=== PATIENT | female | born 1950 | race Caucasian/White ===

== ENCOUNTER 2021-09-08 17:54 | Emergency (ER) | payer MEDICARE, OTHER, SELFPAY ==
--- NOTE | ~2021-09-08 | CT_ITS ---
EXAMINATION: CT HEAD WITHOUT CONTRAST CT CERVICAL SPINE WITHOUT CONTRAST CLINICAL INFORMATION: Status post fall with alcohol on board. Possible right facial droop. COMPARISON: Concurrent chest x-ray 09/08/2021. TECHNIQUE: Multidetector CT imaging of the head and cervical spine was performed without the use of intravenous contrast. Coronal and sagittal reformatted images were generated at the technologist workstation. This CT examination was performed using dose optimization techniques as appropriate, variously including the following: *Automated exposure control *Adjustment of mA and/or kV according to patient size (this includes techniques or standardized protocols for targeted exams where dose is matched to indication/reason for exam; i.e. extremities or head) *Use of iterative reconstruction technique DLP: 1037 mGy-cm. FINDINGS: CT head: Images are moderately degraded by patient motion artifact. There is no evidence of acute intracranial hemorrhage or territorial infarction. No abnormal mass-effect or midline shift is seen. De León to white matter differentiation is well preserved. No extra-axial fluid collections are identified. There is mild commensurate prominence of the ventricles and sulci. There is prominence of the sulci in the bilateral cerebellar hemispheres. This may be a small lacunar infarct in the right basal ganglia. There are areas of low-attenuation in the periventricular subcortical white matter. There are no acute osseous findings. There is severe degenerative changes of the right temporomandibular joint. There are no large scalp contusions or hematomas. The mastoid air cells and the visualized paranasal sinuses are well-aerated. CT cervical spine: There is overall straightening of the cervical lordosis. There are degenerative anterolistheses of C4 on C5 and C7 on T1. There are mild retrolistheses of C5 on C6 and C6 and C7. There is multilevel narrowing of intervertebral disc height which is most severe at C2-C3, C5-C6 and C6-C7. There are multilevel facet arthropathic changes. No fractures are demonstrated. The lateral masses of C1 and C2 are normally aligned and the dens is intact. The cervicomedullary junction appears normal. There are moderate emphysematous changes in the upper lung pool bilaterally and there are nonspecific groundglass opacities. No pneumothoraces are demonstrated. The study demonstrates plate and screws along the right humerus. CT/CT cervical spine wo con IMPRESSION: 1. Imaging is slightly degraded by patient motion artifact on the CT scan of the head. There are no acute bleeds or territorial infarcts. No masses are demonstrated. 2. There are chronic microvascular ischemic changes and there is diffuse volume loss. 3. There are no acute fractures or subluxations in the cervical spine. There are severe multilevel spondylitic and facet arthropathic changes.
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
[2021-09-08 18:05] VITALS: BP 140/92; PULSE 86; O2SAT 100
--- NOTE | 2021-09-08 18:22 | ECG_ITS ---
Test Reason : FALL Blood Pressure : / mmHG Vent. Rate : 060 BPM Atrial Rate : 060 BPM P-R Int : 144 ms QRS Dur : 086 ms QT Int : 474 ms P-R-T Axes : 069 -03 027 degrees QTc Int : 474 ms Normal sinus rhythm Low voltage QRS Borderline ECG No previous ECGs available Referred By: Lila Marie Electronically Signed By:JOSE ANGEL BALTAZAR MD
[2021-09-08 18:34] VITALS: BP 149/70; PULSE 64; RESP 20; TEMP 36.5; O2SAT 99; BMI 26.9
--- NOTE | 2021-09-08 18:51 | ED.FALL ---
HPI - Fall General Chief Complaint: Fall <ISRRAEL Palacio Last Filed: 09/09/21 02:13> Stated Complaint: WITNESSED TRIP&FALL W/ELBOW&HAND SCRAPES,ETOH <ISRRAEL Palacio - Last Filed: 09/09/21 02:13> Time Seen by Provider: 09/08/21 18:22 <ISRRAEL Palacio Last Filed: 09/09/21 02:13> Source: EMS <ISRRAEL Palacio Last Filed: 09/09/21 02:13> Mode of arrival: EMS <ISRRAEL Palacio Last Filed: 09/09/21 02:13> Limitations: other (Poor historian intoxicated) <ISRRAEL Palacio Last Filed: 09/09/21 02:13> History of Present Illness HPI Narrative: 71-year-old female who is from [place] we do not have any medical history from her although looking through her wallet it appears that she might have ETOH abuse due to she has multiple detox centers and 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 The bystander denied loss of consciousness to EMS. Her license says [place]. She can barely speak at this time although she is moving all extremities with full range of motion no obvious signs of trauma. We also assisted her on the bedpan due to she kept screaming ?I need to pee?. <ISRRAEL Plaacio - Last Filed: 09/09/21 02:13> MD complaint: fall <ISRRAEL Palacio - Last Filed: 09/09/21 02:13> Onset (ago): minute(s) (Prior to arrival) <ISRRAEL Palacio Last Filed: 09/09/21 02:13> Fall from: standing <ISRRAEL Palacio Last Filed: 09/09/21 02:13> Fall witnessed: yes, by bystander <ISRRAEL Palacio Last Filed: 09/09/21 02:13> Place fall occurred: street <ISRRAEL Palacio Last Filed: 09/09/21 02:13> Loss of consciousness: unsure <ISRRAEL Palacio - Last Filed: 09/09/21 02:13> Prolonged down time: unclear <ISRRAEL Palacio - Last Filed: 09/09/21 02:13> Related Data Allergies/Adverse Reactions: Allergies Allergy/AdvReac Type Severity Reaction Status Date / Time No Known Allergies Allergy Verified 09/08/21 18:22 <ISRRAEL Palacio - Last Filed: 09/09/21 02:13> Review of Systems Review of Systems: Yes Unobtainable due to mental condition (Poor historian/intoxicated) <ISRRAEL Palacio - Last Filed: 09/09/21 02:13> [facility] Past Medical History Medical History: Medical History ETOH abuse <ISRRAEL Palacio - Last Filed: 09/09/21 02:13> Social History Social History: Social History Alcohol intake: current Use of substances other than those prescribed or required for medical reasons: No <ISRRAEL Palacio - Last Filed: 09/09/21 02:13> Physical Exam Vital Signs: Vital Signs: Last Vital Signs Temp 97.8 F 09/09/21 05:59 Pulse 67 09/09/21 06:59 Resp 16 09/09/21 06:59 BP 125/70 09/09/21 06:59 Pulse Ox 100 09/09/21 06:59 BMI result Body Mass Index 26.9 Vital signs have been reviewed as normal and appeared to be correct. Blood pressure 149/70. Heart rate normal. Respiration rate normal. Temperature normal. Oxygen saturation normal. <ISRRAEL Palacio - Last Filed: 09/09/21 02:13> Vital Signs: Last Vital Signs Temp 97.8 F 09/09/21 05:59 Pulse 67 09/09/21 06:59 Resp 16 09/09/21 06:59 BP 125/70 09/09/21 06:59 Pulse Ox 100 09/09/21 06:59 BMI result Body Mass Index 26.9 <Leonel Pitts MD - Last Filed: 09/09/21 07:32> Appearance: Awake although intoxicated with slurred speech. No acute distress. Head: Normal external exam. Normocephalic. Atraumatic. Able to rotate head bilaterally. No Mo signs or raccoon eyes noted. Eyes: PERRLA. EOMI. No nystagmus noted. Conjunctiva and sclera normal. Eyelids normal. Corneal reflex normal. ENT: EAC normal. TM's Normal. No septal hematoma noted. No hemotympanum noted. No lesions/ulcerations or masses noted on the tongue. Hearing normal. Pharynx normal. Uvula midline. tongue midline. Moist mucous membranes. No trismus noted. No drooling noted. No muffled voice noted. No nystagmus noted. Slurred speech. Neck: Normal inspection. Neck supple. FROM. No adenopathy. Trachea midline. Thyroid Normal. No meningeal signs. No neck mass noted. CVS: Normal heart rate and rhythm. Heart sound normal. No murmurs noted. Pulses normal throughout. Respiratory: No respiratory distress. Painless inspiration. Breath sounds normal. No wheezes/rales/rhonchi noted. Chest nontender. No accessory muscle usage noted or decreased air movement noted. No signs or trauma noted. No crepitus is noted. Abdomen: Soft and nontender. Bowel sounds normal in all 4 quadrants. No distention noted. No organomegaly noted. No visible injury noted. Back: No CVA tenderness. Full range of motion noted. Nontender. No signs of trauma. Patient neuro intact bilaterally and distally on all 4 extremities. Patient's reflexes intact bilaterally and distally on all 4 extremities. No rashes/lesion/induration/fluctuance or signs of infection noted. Skin: Skin warm and dry. Normal skin color. Normal skin turgor. No rashes/lesions/lacerations noted. Extremities: No lower extremity edema. No calf tenderness noted. Extremities exhibit normal range of motion. Extremities nontender. Able to shrug shoulders bilaterally and keep up against resistance. Neuro: Patient is awake although she appears intoxicated with slurred speech she reports that she does not know where she is at this time although she is able to recall that we are in year 2021. Otherwise she does not have any focal deficits. No motor deficit. No sensory deficit. Reflexes normal. Moving all extremities. Cranial nerves II-XI intact bilaterally. To the right side of the face I am questioning possible right facial droop although when the patient smiles this resolves. Strength 5/5 throughout. No pronator drift. No tremor noted. No fasciculations noted. No rigidity noted. Muscle tone normal throughout. No asterixis noted. [id number] test normal. Heel to archibald test normal. Did not test gait due to patient is very intoxicated. Hand drop from overhead Misses face. NIHSS score 0. Vascular: + radial pulses/+ 2 distal pedal pulses/+2 dorsalis pedis b/l. Normal cap refill. No cyanosis noted to upper extremity nails and lower extremity toes nails. 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 The bystander denied loss of consciousness to EMS. Her license says [place]. She can barely speak at this time although she is moving all extremities with full range of motion no obvious signs of trauma. We also assisted her on the bedpan due to she kept screaming ?I need to pee?. On exam there are no obvious signs of trauma she is awake although very intoxicated with slurred speech questioning right facial droop although when the patient smiles this resolves. Otherwise she is moving all extremities. No focal motor old deficits noted. She has good gem carver to bilateral hands. No pronator drift. No nystagmus is noted. Neck is soft nontender and supple with full range of motion no meningeal signs and no signs of trauma. Lungs clear to auscultation. CV RRR. Abdomen is soft and nontender no signs of trauma. Back is nontender with full range of motion no signs of trauma. No lower extremity edema or calf tenderness noted. Gait was not tested due to patient is severely intoxicated. Plan: Labs, COVID swab, chest x-ray, CT scan of brain/cervical spine, EKG. Provide a L of IV fluids and re-evaluate. <ISRRAEL Palacio - Last Filed: 09/09/21 02:13> Reevaluation(s) Reevaluation #1: - labs reviewed patient's H&H at 16.5/51.8 consistent with alcohol abuse. Magnesium 2.7. Alcohol level 365. Otherwise all other labs are within normal limits. UA within normal limits no evidence of UTI. Patient negative for COVID. Drugs of abuse screen pending. - chest x-ray revealed bibasilar atelectasis on the left side otherwise no other acute processes noted. - CT scan of brain/cervical spine pending at this time. <ISRRAEL Palacio - Last Filed: 09/09/21 02:13> Time: 20:00 <ISRRAEL Palacio - Last Filed: 09/09/21 02:13> Reevaluation #2: - CT scan of brain and cervical spine without contrast revealed chronic changes no acute processes noted. - therefore patient is placed in Physician observation because the patient is more time to be clinically sober to be evaluated by crisis versus possible detox team will continue to monitor. At this time she remains neuro intact. She was able to get up and walk around the room although I instructed her today back down due to I do not believe she is clinically sober and her alcohol level is still high I do not want her to fall again. She was able to lay back down and she is now resting. Will continue to monitor. <ISRRAEL Palacio - Last Filed: 09/09/21 02:13> Time: 21:21 <ISRRAEL Palacio - Last Filed: 09/09/21 02:13> Reevaluation #3: - patient got out of her bed and pulled out her IV reporting that she is homeless and has nowhere to go and that she needs help therefore at this time she will need some Ativan to calm her down and she will be seen by crisis when she is clinically sober in the morning. No focal neuro deficits. Normal gait. Continue to monitor. <ISRRAEL Palacio - Last Filed: 09/09/21 02:13> Time: 00:20 <ISRRAEL Palacio - Last Filed: 09/09/21 02:13> Additional Reevaluation(s): 0730: The patient is awake and sober, she does not want to wait in the emergency department anymore for a catalyst recovery operator were care team consult. The patient states that she was just recently in a detox program. She states that she is homeless but she does have a place to go to today. The patient was discharged home with printed and verbal instructions. <Leonel Pitts MD - Last Filed: 09/09/21 07:32> MDM - Fall Medical Records Attestation: I reviewed the patient's medical records. <ISRRAEL Palacio - Last Filed: 09/09/21 02:13> Lab Data Attestation: I reviewed the patient's lab results. <ISRRAEL Palacio - Last Filed: 09/09/21 02:13> Result diagrams: : 09/08/21 19:13 09/08/21 19:13 <ISRRAEL Palacio - Last Filed: 09/09/21 02:13> Labs: Lab Results 09/08/21 09/08/21 09/08/21 Range/Units 19:13 19:13 19:13 WBC 8.3 (4.8-10.8) X10*3/uL RBC 5.50 (4.20-5.50) X10*6/uL Hgb 16.5 H (12.0-16.0) g/dl Hct 51.8 H (37.0-47.0) % MCV 94.2 (80.0-98.0) fL MCH 30.0 (27.0-33.0) pg MCHC 31.9 (31.0-35.0) g/dl RDW 12.4 (11.0-16.0) % Plt Count 316 (160-400) X10*3/uL MPV 9.3 L (9.4-12.3) fL Immature Gran % (Auto) 0.1 (0.0-0.4) % Neut % (Auto) 65.0 (45-73) % Lymph % (Auto) 26.2 (20-40) % [place] % (Auto) 4.3 (2-11) % Eos % (Auto) 3.6 (0-4) % Baso % (Auto) 0.8 (0-2) % Lymph # (Auto) 2.2 (1.2-4.9) X10*3/uL [place] # (Auto) 0.4 (0.1-1.2) X10*3/uL Eos # (Auto) 0.3 (0.0-0.4) X10*3/uL Baso # (Auto) 0.1 (0.0-0.2) X10*3/uL Abs Immat Gran (auto) 0.01 (0.00-0.03) X10*3/uL Absolute Neuts (auto) 5.4 (2.0-8.3) x10*3/uL Absolute Nucleated RBC 0.000 (0.0-0.012) X10*3/uL Nucleated RBC % (auto) 0.0 (0.0-0.2) /100WBC PT 11.1 (9.9-13.0) SEC INR 1.0 (0.9-1.1) APTT 34.8 (24.1-38.0) SEC Sodium 142 (135-145) mmol/L Potassium 4.0 (3.3-5.1) mmol/L Chloride 105 (96-108) mmol/L Carbon Dioxide 29 (22-29) mmol/L Anion Gap 12 (12-20) BUN 13 (9-16) mg/dL Creatinine 0.93 (0.5-1.4) mg/dL Estim Creat Clear Calc 52.8 Estimated GFR 59 Random Glucose 91 (60-115) mg/dL Calcium 10.2 (8.4-10.2) mg/dL Magnesium 2.7 H (1.6-2.6) mg/dL Total Bilirubin 0.2 (0.0-1.0) mg/dL AST 25 (5-31) U/L ALT 30 (0-31) U/L Alkaline Phosphatase 73 (39-117) U/L Troponin I High Sens (<3.5-17.0) ng/L Total Protein 7.8 (6.5-8.0) g/dL Albumin 4.7 (3.5-5.0) g/dL Urine Color Urine Appearance Urine pH (5.0-8.0) Ur Specific Bush (1.005-1.025) Urine Protein (NEG-TRACE) MG/DL Urine Glucose (UA) (NEG) MG/DL Urine Ketones (NEG) MG/DL Urine Blood (NEG) Urine Nitrite (NEG) Ur Leukocyte Esterase (NEG) Urine Opiates Screen (Not Detect) Urine Fentanyl Screen (Not Detect) Ur Barbiturates Screen (Not Detect) Ur Phencyclidine Scrn (Not Detect) Ur Amphetamines Screen (Not Detect) U Benzodiazepines Scrn (Not Detect) Urine Cocaine Screen (Not Detect) U Marijuana (THC) Screen (Not Detect) Ethyl Alcohol mg/dL COVID-19 (PRANAY) (Negative) COVID-19 Clin Com 09/08/21 09/08/21 09/08/21 Range/Units 19:13 19:13 19:13 WBC (4.8-10.8) X10*3/uL RBC (4.20-5.50) X10*6/uL Hgb (12.0-16.0) g/dl Hct (37.0-47.0) % MCV (80.0-98.0) fL MCH (27.0-33.0) pg MCHC (31.0-35.0) g/dl RDW (11.0-16.0) % Plt Count (160-400) X10*3/uL MPV (9.4-12.3) fL Immature Gran % (Auto) (0.0-0.4) % Neut % (Auto) (45-73) % Lymph % (Auto) (20-40) % [place] % (Auto) (2-11) % Eos % (Auto) (0-4) % Baso % (Auto) (0-2) % Lymph # (Auto) (1.2-4.9) X10*3/uL [place] # (Auto) (0.1-1.2) X10*3/uL Eos # (Auto) (0.0-0.4) X10*3/uL Baso # (Auto) (0.0-0.2) X10*3/uL Abs Immat Gran (auto) (0.00-0.03) X10*3/uL Absolute Neuts (auto) (2.0-8.3) x10*3/uL Absolute Nucleated RBC (0.0-0.012) X10*3/uL Nucleated RBC % (auto) (0.0-0.2) /100WBC PT (9.9-13.0) SEC INR (0.9-1.1) APTT (24.1-38.0) SEC Sodium (135-145) mmol/L Potassium (3.3-5.1) mmol/L Chloride (96-108) mmol/L Carbon Dioxide (22-29) mmol/L Anion Gap (12-20) BUN (9-16) mg/dL Creatinine (0.5-1.4) mg/dL Estim Creat Clear Calc Estimated GFR Random Glucose (60-115) mg/dL Calcium (8.4-10.2) mg/dL Magnesium (1.6-2.6) mg/dL Total Bilirubin (0.0-1.0) mg/dL AST (5-31) U/L ALT (0-31) U/L Alkaline Phosphatase (39-117) U/L Troponin I High Sens < 3.5 (<3.5-17.0) ng/L Total Protein (6.5-8.0) g/dL Albumin (3.5-5.0) g/dL Urine Color Urine Appearance Urine pH (5.0-8.0) Ur Specific [place] (1.005-1.025) Urine Protein (NEG-TRACE) MG/DL Urine Glucose (UA) (NEG) MG/DL Urine Ketones (NEG) MG/DL Urine Blood (NEG) Urine Nitrite (NEG) Ur Leukocyte Esterase (NEG) Urine Opiates Screen (Not Detect) Urine Fentanyl Screen (Not Detect) Ur Barbiturates Screen (Not Detect) Ur Phencyclidine Scrn (Not Detect) Ur Amphetamines Screen (Not Detect) U Benzodiazepines Scrn (Not Detect) Urine Cocaine Screen (Not Detect) U Marijuana (THC) Screen (Not Detect) Ethyl Alcohol 365 H* mg/dL COVID-19 (PRANAY) Negative (Negative) COVID-19 Clin Com See Note 09/08/21 09/08/21 Range/Units 19:15 19:15 WBC (4.8-10.8) X10*3/uL RBC (4.20-5.50) X10*6/uL Hgb (12.0-16.0) g/dl Hct (37.0-47.0) % MCV (80.0-98.0) fL MCH (27.0-33.0) pg MCHC (31.0-35.0) g/dl RDW (11.0-16.0) % Plt Count (160-400) X10*3/uL MPV (9.4-12.3) fL Immature Gran % (Auto) (0.0-0.4) % Neut % (Auto) (45-73) % Lymph % (Auto) (20-40) % [place] % (Auto) (2-11) % Eos % (Auto) (0-4) % Baso % (Auto) (0-2) % Lymph # (Auto) (1.2-4.9) X10*3/uL [place] # (Auto) (0.1-1.2) X10*3/uL Eos # (Auto) (0.0-0.4) X10*3/uL Baso # (Auto) (0.0-0.2) X10*3/uL Abs Immat Gran (auto) (0.00-0.03) X10*3/uL Absolute Neuts (auto) (2.0-8.3) x10*3/uL Absolute Nucleated RBC (0.0-0.012) X10*3/uL Nucleated RBC % (auto) (0.0-0.2) /100WBC PT (9.9-13.0) SEC INR (0.9-1.1) APTT (24.1-38.0) SEC Sodium (135-145) mmol/L Potassium (3.3-5.1) mmol/L Chloride (96-108) mmol/L Carbon Dioxide (22-29) mmol/L Anion Gap (12-20) BUN (9-16) mg/dL Creatinine (0.5-1.4) mg/dL Estim Creat Clear Calc Estimated GFR Random Glucose (60-115) mg/dL Calcium (8.4-10.2) mg/dL Magnesium (1.6-2.6) mg/dL Total Bilirubin (0.0-1.0) mg/dL AST (5-31) U/L ALT (0-31) U/L Alkaline Phosphatase (39-117) U/L Troponin I High Sens (<3.5-17.0) ng/L Total Protein (6.5-8.0) g/dL Albumin (3.5-5.0) g/dL Urine Color STRAW Urine Appearance CLEAR Urine pH 5.5 (5.0-8.0) Ur Specific Bush <= 1.005 (1.005-1.025) Urine Protein NEG (NEG-TRACE) MG/DL Urine Glucose (UA) NEG (NEG) MG/DL Urine Ketones NEG (NEG) MG/DL Urine Blood NEG (NEG) Urine Nitrite NEG (NEG) Ur Leukocyte Esterase NEG (NEG) Urine Opiates Screen Not Detected (Not Detect) Urine Fentanyl Screen Not Detected (Not Detect) Ur Barbiturates Screen Not Detected (Not Detect) Ur Phencyclidine Scrn Not Detected (Not Detect) Ur Amphetamines Screen Not Detected (Not Detect) U Benzodiazepines Scrn Not Detected (Not Detect) Urine Cocaine Screen Not Detected (Not Detect) U Marijuana (THC) Screen Not Detected (Not Detect) Ethyl Alcohol mg/dL COVID-19 (PRANAY) (Negative) COVID-19 Clin Com <ISRRAEL Palacio - Last Filed: 09/09/21 02:13> Lab Results 09/08/21 09/08/21 09/08/21 Range/Units 19:13 19:13 19:13 WBC 8.3 (4.8-10.8) X10*3/uL RBC 5.50 (4.20-5.50) X10*6/uL Hgb 16.5 H (12.0-16.0) g/dl Hct 51.8 H (37.0-47.0) % MCV 94.2 (80.0-98.0) fL MCH 30.0 (27.0-33.0) pg MCHC 31.9 (31.0-35.0) g/dl RDW 12.4 (11.0-16.0) % Plt Count 316 (160-400) X10*3/uL MPV 9.3 L (9.4-12.3) fL Immature Gran % (Auto) 0.1 (0.0-0.4) % Neut % (Auto) 65.0 (45-73) % Lymph % (Auto) 26.2 (20-40) % [place] % (Auto) 4.3 (2-11) % Eos % (Auto) 3.6 (0-4) % Baso % (Auto) 0.8 (0-2) % Lymph # (Auto) 2.2 (1.2-4.9) X10*3/uL [place] # (Auto) 0.4 (0.1-1.2) X10*3/uL Eos # (Auto) 0.3 (0.0-0.4) X10*3/uL Baso # (Auto) 0.1 (0.0-0.2) X10*3/uL Abs Immat Gran (auto) 0.01 (0.00-0.03) X10*3/uL Absolute Neuts (auto) 5.4 (2.0-8.3) x10*3/uL Absolute Nucleated RBC 0.000 (0.0-0.012) X10*3/uL Nucleated RBC % (auto) 0.0 (0.0-0.2) /100WBC PT 11.1 (9.9-13.0) SEC INR 1.0 (0.9-1.1) APTT 34.8 (24.1-38.0) SEC Sodium 142 (135-145) mmol/L Potassium 4.0 (3.3-5.1) mmol/L Chloride 105 (96-108) mmol/L Carbon Dioxide 29 (22-29) mmol/L Anion Gap 12 (12-20) BUN 13 (9-16) mg/dL Creatinine 0.93 (0.5-1.4) mg/dL Estim Creat Clear Calc 52.8 Estimated GFR 59 Random Glucose 91 (60-115) mg/dL Calcium 10.2 (8.4-10.2) mg/dL Magnesium 2.7 H (1.6-2.6) mg/dL Total Bilirubin 0.2 (0.0-1.0) mg/dL AST 25 (5-31) U/L ALT 30 (0-31) U/L Alkaline Phosphatase 73 (39-117) U/L Troponin I High Sens (<3.5-17.0) ng/L Total Protein 7.8 (6.5-8.0) g/dL Albumin 4.7 (3.5-5.0) g/dL Urine Color Urine Appearance Urine pH (5.0-8.0) Ur Specific [place] (1.005-1.025) Urine Protein (NEG-TRACE) MG/DL Urine Glucose (UA) (NEG) MG/DL Urine Ketones (NEG) MG/DL Urine Blood (NEG) Urine Nitrite (NEG) Ur Leukocyte Esterase (NEG) Urine Opiates Screen (Not Detect) Urine Fentanyl Screen (Not Detect) Ur Barbiturates Screen (Not Detect) Ur Phencyclidine Scrn (Not Detect) Ur Amphetamines Screen (Not Detect) U Benzodiazepines Scrn (Not Detect) Urine Cocaine Screen (Not Detect) U Marijuana (THC) Screen (Not Detect) Ethyl Alcohol mg/dL COVID-19 (PRANAY) (Negative) COVID-19 Clin Com 09/08/21 09/08/21 09/08/21 Range/Units 19:13 19:13 19:13 WBC (4.8-10.8) X10*3/uL RBC (4.20-5.50) X10*6/uL Hgb (12.0-16.0) g/dl Hct (37.0-47.0) % MCV (80.0-98.0) fL MCH (27.0-33.0) pg MCHC (31.0-35.0) g/dl RDW (11.0-16.0) % Plt Count (160-400) X10*3/uL MPV (9.4-12.3) fL Immature Gran % (Auto) (0.0-0.4) % Neut % (Auto) (45-73) % Lymph % (Auto) (20-40) % [place] % (Auto) (2-11) % Eos % (Auto) (0-4) % Baso % (Auto) (0-2) % Lymph # (Auto) (1.2-4.9) X10*3/uL [place] # (Auto) (0.1-1.2) X10*3/uL Eos # (Auto) (0.0-0.4) X10*3/uL Baso # (Auto) (0.0-0.2) X10*3/uL Abs Immat Gran (auto) (0.00-0.03) X10*3/uL Absolute Neuts (auto) (2.0-8.3) x10*3/uL Absolute Nucleated RBC (0.0-0.012) X10*3/uL Nucleated RBC % (auto) (0.0-0.2) /100WBC PT (9.9-13.0) SEC INR (0.9-1.1) APTT (24.1-38.0) SEC Sodium (135-145) mmol/L Potassium (3.3-5.1) mmol/L Chloride (96-108) mmol/L Carbon Dioxide (22-29) mmol/L Anion Gap (12-20) BUN (9-16) mg/dL Creatinine (0.5-1.4) mg/dL Estim Creat Clear Calc Estimated GFR Random Glucose (60-115) mg/dL Calcium (8.4-10.2) mg/dL Magnesium (1.6-2.6) mg/dL Total Bilirubin (0.0-1.0) mg/dL AST (5-31) U/L ALT (0-31) U/L Alkaline Phosphatase (39-117) U/L Troponin I High Sens < 3.5 (<3.5-17.0) ng/L Total Protein (6.5-8.0) g/dL Albumin (3.5-5.0) g/dL Urine Color Urine Appearance Urine pH (5.0-8.0) Ur Specific [place] (1.005-1.025) Urine Protein (NEG-TRACE) MG/DL Urine Glucose (UA) (NEG) MG/DL Urine Ketones (NEG) MG/DL Urine Blood (NEG) Urine Nitrite (NEG) Ur Leukocyte Esterase (NEG) Urine Opiates Screen (Not Detect) Urine Fentanyl Screen (Not Detect) Ur Barbiturates Screen (Not Detect) Ur Phencyclidine Scrn (Not Detect) Ur Amphetamines Screen (Not Detect) U Benzodiazepines Scrn (Not Detect) Urine Cocaine Screen (Not Detect) U Marijuana (THC) Screen (Not Detect) Ethyl Alcohol 365 H* mg/dL COVID-19 (PRANAY) Negative (Negative) COVID-19 Clin Com See Note 09/08/21 09/08/21 Range/Units 19:15 19:15 WBC (4.8-10.8) X10*3/uL RBC (4.20-5.50) X10*6/uL Hgb (12.0-16.0) g/dl Hct (37.0-47.0) % MCV (80.0-98.0) fL MCH (27.0-33.0) pg MCHC (31.0-35.0) g/dl RDW (11.0-16.0) % Plt Count (160-400) X10*3/uL MPV (9.4-12.3) fL Immature Gran % (Auto) (0.0-0.4) % Neut % (Auto) (45-73) % Lymph % (Auto) (20-40) % [place] % (Auto) (2-11) % Eos % (Auto) (0-4) % Baso % (Auto) (0-2) % Lymph # (Auto) (1.2-4.9) X10*3/uL [place] # (Auto) (0.1-1.2) X10*3/uL Eos # (Auto) (0.0-0.4) X10*3/uL Baso # (Auto) (0.0-0.2) X10*3/uL Abs Immat Gran (auto) (0.00-0.03) X10*3/uL Absolute Neuts (auto) (2.0-8.3) x10*3/uL Absolute Nucleated RBC (0.0-0.012) X10*3/uL Nucleated RBC % (auto) (0.0-0.2) /100WBC PT (9.9-13.0) SEC INR (0.9-1.1) APTT (24.1-38.0) SEC Sodium (135-145) mmol/L Potassium (3.3-5.1) mmol/L Chloride (96-108) mmol/L Carbon Dioxide (22-29) mmol/L Anion Gap (12-20) BUN (9-16) mg/dL Creatinine (0.5-1.4) mg/dL Estim Creat Clear Calc Estimated GFR Random Glucose (60-115) mg/dL Calcium (8.4-10.2) mg/dL Magnesium (1.6-2.6) mg/dL Total Bilirubin (0.0-1.0) mg/dL AST (5-31) U/L ALT (0-31) U/L Alkaline Phosphatase (39-117) U/L Troponin I High Sens (<3.5-17.0) ng/L Total Protein (6.5-8.0) g/dL Albumin (3.5-5.0) g/dL Urine Color STRAW Urine Appearance CLEAR Urine pH 5.5 (5.0-8.0) Ur Specific [place] <= 1.005 (1.005-1.025) Urine Protein NEG (NEG-TRACE) MG/DL Urine Glucose (UA) NEG (NEG) MG/DL Urine Ketones NEG (NEG) MG/DL Urine Blood NEG (NEG) Urine Nitrite NEG (NEG) Ur Leukocyte Esterase NEG (NEG) Urine Opiates Screen Not Detected (Not Detect) Urine Fentanyl Screen Not Detected (Not Detect) Ur Barbiturates Screen Not Detected (Not Detect) Ur Phencyclidine Scrn Not Detected (Not Detect) Ur Amphetamines Screen Not Detected (Not Detect) U Benzodiazepines Scrn Not Detected (Not Detect) Urine Cocaine Screen Not Detected (Not Detect) U Marijuana (THC) Screen Not Detected (Not Detect) Ethyl Alcohol mg/dL COVID-19 (PRANAY) (Negative) COVID-19 Clin Com <Leonel Pitts MD - Last Filed: 09/09/21 07:32> Imaging Data Chest x-ray: Attestation: I personally reviewed and interpreted this imaging study as follows: <ISRRAEL Palacio - Last Filed: 09/09/21 02:13> Radiologist's impression: FINDINGS: Heart size within normal limits. There is mild elevation of the right hemidiaphragm. Left basilar atelectasis is present. Plate and screw device is present overlying the proximal right humerus secondary to fracture. XR/XR chest 1V IMPRESSION: No acute intrathoracic disease. Some left basilar atelectasis. <ISRRAEL Palacio - Last Filed: 09/09/21 02:13> CT scan of brain/cervical spine without contrast: Attestation: I personally reviewed and interpreted this imaging study as follows: <ISRRAEL Palacio - Last Filed: 09/09/21 02:13> Radiologist's impression: FINDINGS: CT head: Images are moderately degraded by patient motion artifact. There is no evidence of acute intracranial hemorrhage or territorial infarction. No abnormal mass-effect or midline shift is seen. [place] to white matter differentiation is well preserved. No extra-axial fluid collections are identified. There is mild commensurate prominence of the ventricles and sulci. There is prominence of the sulci in the bilateral cerebellar hemispheres. This may be a small lacunar infarct in the right basal ganglia. There are areas of low-attenuation in the periventricular subcortical white matter. There are no acute osseous findings. There is severe degenerative changes of the right temporomandibular joint. There are no large scalp contusions or hematomas. The mastoid air cells and the visualized paranasal sinuses are well-aerated. CT cervical spine: There is overall straightening of the cervical lordosis. There are degenerative anterolistheses of C4 on C5 and C7 on T1. There are mild retrolistheses of C5 on C6 and C6 and C7. There is multilevel narrowing of intervertebral disc height which is most severe at C2-C3, C5-C6 and C6-C7. There are multilevel facet arthropathic changes. No fractures are demonstrated. The lateral masses of C1 and C2 are normally aligned and the dens is intact. The cervicomedullary junction appears normal. There are moderate emphysematous changes in the upper lung pool bilaterally and there are nonspecific groundglass opacities. No pneumothoraces are demonstrated. The study demonstrates plate and screws along the right humerus. ? CT/CT head/brain wo con IMPRESSION: 1. Imaging is slightly degraded by patient motion artifact on the CT scan of the head. There are no acute bleeds or territorial infarcts. No masses are demonstrated. ? 2. There are chronic microvascular ischemic changes and there is diffuse volume loss. ? 3. There are no acute fractures or subluxations in the cervical spine. There are severe multilevel spondylitic and facet arthropathic changes. ? <ISRRAEL Palacio - Last Filed: 09/09/21 02:13> ECG Data Attestation: I personally reviewed and interpreted this ECG as follows: <ISRRAEL Palacio - Last Filed: 09/09/21 02:13> ECG interpretation date: 09/08/21 <ISRRAEL Palacio - Last Filed: 09/09/21 02:13> ECG interpretation time: 19:19 <ISRRAEL Palacio - Last Filed: 09/09/21 02:13> Interpretation: Normal sinus rhythm with ventricular rate of 60 with low voltage QRS otherwise no acute ischemic change are noted. No prior EKGs to compare to at this time. <ISRRAEL Palacio - Last Filed: 09/09/21 02:13> Critical Care Time Critical Care Time Critical Care Time: Yes <ISRRAEL Palacio - Last Filed: 09/09/21 02:13> Total Critical Care Time: 60 <ISRRAEL Palacio - Last Filed: 09/09/21 02:13> Attestation: I personally attest to this time spent taking care of the patient <ISRRAEL Palacio - Last Filed: 09/09/21 02:13> Discharge Plan Discharge Clinical Impression: ETOH abuse, Fall, Acute alcohol intoxication <ISRRAEL Palacio - Last Filed: 09/09/21 02:13> Patient Disposition: Home, Self-Care <ISRRAEL Palacio - Last Filed: 09/09/21 02:13> Instructions: Alcohol Use Disorder (ED) <ISRRAEL Palacio - Last Filed: 09/09/21 02:13> Additional Instructions: The legal limit of intoxication is 80. Your blood alcohol level was 365. You should consider trying to get back into a detox program to help you with your alcohol use disorder. Follow-up with your doctor in 2 days. Please return to the emergency department if your symptoms get worse or if you develop any symptoms that are concerning to you. <ISRRAEL Palacio - Last Filed: 09/09/21 02:13>
[2021-09-08 19:01] VITALS: BP 115/57; PULSE 62; RESP 17; O2SAT 100
[2021-09-08] MEDS: 0.9 % Sodium Chloride 1,000 ML 999 ML IVCONT (19:18)
[2021-09-08 19:22] LABS: MANUAL DIFF FLAG NO
[2021-09-08 19:24] LABS: Basophils Absolute Auto 0.1 X10*3/uL (0.0-0.2); Basophils Percent Auto 0.8 % (0-2); Eosinophils Absolute Auto 0.3 X10*3/uL (0.0-0.4); Eosinophils Percent Auto 3.6 % (0-4); Hematocrit 51.8 % (37.0-47.0); Hemoglobin 16.5 g/dl (12.0-16.0); Imm Gran Abs Auto 0.01 X10*3/uL (0.00-0.03); Imm Gran Pct Auto 0.1 % (0.0-0.4); Lymphocytes Absolute Auto 2.2 X10*3/uL (1.2-4.9); Lymphocytes Percent Auto 26.2 % (20-40); Mean Corpuscular HGB Conc 31.9 g/dl (31.0-35.0); Mean Corpuscular Volume 94.2 fL (80.0-98.0); Mean Platelet Volume 9.3 fL (9.4-12.3); Monocytes Absolute Auto 0.4 X10*3/uL (0.1-1.2); Monocytes Percent Auto 4.3 % (2-11); Neutrophils Absolute Auto 5.4 x10*3/uL (2.0-8.3); Platelet Count 316 X10*3/uL (160-400); Red Cell Distribution Width 12.4 % (11.0-16.0); White Blood Count 8.3 X10*3/uL (4.8-10.8)
[2021-09-08 19:24] LABS: Appearance Urine CLEAR; Color Urine STRAW; Glucose Urine UA NEG (NEG); Leukocyte Esterase Urine NEG (NEG); Nitrite Urine NEG (NEG); PH 5.5 (5.0-8.0); Specific Gravity - Urine <= 1.005 (1.005-1.025); Urine Blood NEG (NEG); Urine Ketones NEG (NEG); Urine Protein NEG (NEG-TRACE)
[2021-09-08 19:33] LABS: Prothrombin Time 11.1 SEC (9.9-13.0)
[2021-09-08 19:37] LABS: Ethanol 365 mg/dL
[2021-09-08 19:39] LABS: COVID-19 Test Negative (Negative)
[2021-09-08 19:40] LABS: Alanine Aminotransferase 30 U/L (0-31); Albumin Level 4.7 g/dL (3.5-5.0); Alkaline Phosphatase 73 U/L (39-117); Anion Gap 12 (12-20); Aspartate Amino Transferase 25 U/L (5-31); Bilirubin Total 0.2 mg/dL (0.0-1.0); Blood Urea Nitrogen 13 mg/dL (9-16); Calcium 10.2 mg/dL (8.4-10.2); Carbon Dioxide 29 mmol/L (22-29); Chloride 105 mmol/L (96-108); Creatinine Clr Calc Pharmacy 52.8; Estimated Glomerular Filt Rate 59; Glucose Random 91 mg/dL (60-115); Magnesium 2.7 mg/dL (1.6-2.6); Sodium 142 mmol/L (135-145); Total Protein 7.8 g/dL (6.5-8.0)
[2021-09-08 19:47] LABS: Troponin-I High Sensitivity < 3.5 ng/L (<3.5-17.0)
--- NOTE | 2021-09-08 19:49 | MHC.RECOVSUP ---
? Reason for consult:Recovery Support o Current location:[facility]-05 o Identified substance use concern: ETOH - Support ? Intervention:None ? Plan:None o ? Additional information:Patient is too intoxicated to help with interview.F/u tomorrow
[2021-09-08 22:02] LABS: Partial Thromboplastin Time 34.8 SEC (24.1-38.0)
[2021-09-08 22:12] LABS: Amphetamine Screen Urine Not Detected (Not Detect); Barbiturates, Urine Not Detected (Not Detect); Benzodiazepines Screen Urine Not Detected (Not Detect); Cannabinoid Screen Urine Not Detected (Not Detect); Cocaine Screen Urine Not Detected (Not Detect); Fentanyl, urine Not Detected (Not Detect); Opiate Screen Urine Not Detected (Not Detect); Phencyclidine Screen Urine Not Detected (Not Detect)
[2021-09-09] MEDS: LORazepam 2 MG/ML VIAL IM (00:22)
[2021-09-09 00:27] VITALS: BP 137/60; PULSE 69; RESP 16; TEMP 36.6; O2SAT 99
--- NOTE | 2021-09-09 00:29 | PC.NURSE ---
PATIENT WAS ASSISTED TO BEDSIDE COMMODE BY THIS PCT .
[2021-09-09] MEDS: Haloperidol Lactate 5 MG/ML VIAL IM (01:10)
[2021-09-09 02:00] VITALS: BP 107/44; PULSE 60; RESP 16; TEMP 36.3; O2SAT 100
[2021-09-09 03:50] VITALS: BP 95/48; PULSE 56; RESP 16; TEMP 36.3; O2SAT 97
--- NOTE | 2021-09-09 05:30 | PC.NURSE ---
pt was aggressive and yelling at change of shift. pt redirected, offered food and a drink per her request. pt still upset. pt medicated with 2mg of Ativan and 5 of haldol. pt monitored for over an hour. pt calm and sleeping at this time. no sign of distress. Will continue monitor.
[2021-09-09 05:59] VITALS: BP 133/66; PULSE 82; RESP 16; TEMP 36.6; O2SAT 99
[2021-09-09 06:59] VITALS: BP 125/70; PULSE 67; RESP 16; O2SAT 100
== END 2021-09-09 07:57 | disposition home or self-care (01) ==
PROVIDERS: Physician Assistant Medical; Emergency Provider Emergency Medicine Emergency Medical Services
DX: F10.120 Alcohol abuse with intoxication, uncomplicated (principal); Y90.8 Blood alcohol level of 240 mg/100 ml or more; Z91.81 History of falling; Z20.822 Contact with and (suspected) exposure to COVID-19
CPT/HCPCS: 36415; 70450; 71045; 72125; 80053; 80307; 81003; 82077; 83735; 84484; 85025; 85610; 85730; 87635; 93005; 96360; 96372; 99285; 99291; J2060

== ENCOUNTER 2023-01-08 10:30 | Outpatient (AMB) | payer MEDICARE, SELFPAY ==
[2023-01-08 10:38] VITALS: BP 136/74; PULSE 74; O2SAT 97; BMI 25.1
--- NOTE | 2023-01-08 10:38 | MHC.PC.OV ---
Vital Signs 01/08/23 10:38 Height 5 ft 5 in Weight 151 lb BMI 25.1 BP 136/74 Blood Pressure Location Lt brachial Position Sitting Pulse 74 Pulse Source Pulse Oximeter Pulse Oximetry (%) 97 Intake Visit Reasons: Ortho and ENT referral Intake Note: pt is here for referrals for ortho ( carpal tunnel) and ENT( tinnitus). patient states she needs refill on lisinopril Refining Still Operator Required: No Accompanied by: Self / Same As Patient Allergies No Known Allergies Allergy (Verified 01/08/23 11:18) Medication List - Last Reconciled 01/08/23 by Luigi Maria CNP blood pressure monitor As directed buspirone 30 mg PO BID clonidine HCl 0.1 mg PO TID ibuprofen 600 mg PO Q8H PRN lisinopril 20 mg PO DAILY mirtazapine 15 mg PO BEDTIME venlafaxine ER 150 mg PO BEDTIME Tobacco use date assessed: 01/08/23 Fall risk assessment: 1 Fall in past year Last assessed Fall Risk: 01/08/23 Dental Screening Dental Screen Date: 01/08/23 Did you have a dental visit in the last 12 months?: Yes Did you have a dental problem in the last 6 months where you did not have access to dental care?: No Was dental information given to patient?: Patient has dentist HPI HPI Comments History of Present Illness Details 72-year-old female presents with complaints of persistent carpel tunnel symptoms. She reports numbness to her bilat upper arm for the past 4-5 years. She has been taking Ibuprofen 600 mg daily with significant improvement. She requests ortho referral. She also reports tinnitus of both ears years. She reports constant ringing of her years. She requests ENT referral. She notes her anxiety and depression symptoms are improving. She is followed by a psychiatrist every 2 months; her psychiatrist manages her behavioral medications. She sees a therapist every 3-4 weeks. [facility] Medical History ETOH abuse Family History Mother Diabetes Father Aortic aneurysm Social History Household Members: Other Alcohol intake: current Patient Tobacco Use Status: Former Tobacco user e-Cigarette/Vaping Use: Never Used Second Hand Smoke Exposure: No service: No Current occupational status: disabled Current occupational exposures/hazards: No Cognitive needs: No Hearing needs: No Vision needs: Yes Questionnaire FINESSE-7 AMB Questionnaire FINESSE-7 Date FINESSE - 7 assessed: 05/11/22 Source: Developed by Drs. Bert Odell, Fay Ugalde, Selvin Stafford and colleagues, with an educational jose maria from [employer]. Review of Systems Const Details: Const Denies chills, Denies fatigue, Denies fever(s), Denies headache(s) and Denies weakness ENT Reports as per HPI Card Denies chest pain, Denies lightheadedness, Denies dyspnea and Denies other (Palpitations) Resp Denies cough, Denies dyspnea, Denies wheezing and Denies other ( shortness of breath) GI Denies abdominal pain, Denies melena, Denies hematochezia, Denies change in bowel habits, Denies dyspepsia and Denies nausea Denies hematuria and Denies dysuria Musc Denies abnormal gait, Denies myalgias, Denies arthralgias, Reports numbness to both forearms and Denies tingling Skin/Breast Denies rash, Denies unusual bruising and Denies wounds Neuro Denies abnormal gait, Denies dizziness, Denies headache(s), Denies memory loss, Reports numbness, Denies Sensory deficit (Neuro), Denies tingling and Denies weakness Psych Denies anxiety and Denies depression Endo Denies fatigue Aller/Immun Denies wheezing Physical exam (Primary Care) Vital Signs: Last Vital Signs Pulse 74 01/08/23 10:38 BP 136/74 01/08/23 10:38 Pulse Ox 97 01/08/23 10:38 BMI result Body Mass Index 25.1 Tobacco/Smoking Status: Tobacco use Status Tobacco use date assessed 01/08/23 01/08/23 10:47 Patient Tobacco Use Status Former Tobacco user 01/08/23 10:47 e-Cigarette/Vaping Use Never Used 01/08/23 10:47 Const Other: General: no acute distress and well developed Nutritional Appearance: well nourished Orientation/consciousness: patient oriented x3 HENMT Head is normocephalic Bilateral ear canal and TM are normal Nasal turbinates and oropharynx are pink and moist Sinuses are nontender with palpation No auricular or cervical lymphadenopathy Eyes General: appearance normal, both eyes and all related structures Pupils: Equal, round and reactive pupils present EOM: EOMs intact bilaterally Resp Effort & Inspection: normal respiratory effort Auscultation: clear to auscultation bilaterally Cardio Rate: regular rate Rhythm: regular rhythm Heart sounds: S1 normal heart sound present, S2 normal heart sound present, no gallops, no murmurs and no rubs GI Palpation (GI): No Abdominal aortic bruit present, Soft to palpation, nontender, No hepatosplenomegaly present and No Rebound tenderness present Auscultation: normal bowel sounds General: Yes no CVA tenderness Back/Spine/Pelvis Back: no CVA tenderness Cervical Spine: cervical ROM normal and No Cervical spine tenderness Thoracic/Lumbar Spine: thoraco-lumbar ROM normal, No pain with thoraco-lumbar ROM, No thoracic spinal tenderness and No lumbar spinal tenderness Extrem General: Yes normal to inspection, No edema and No calf tenderness Negative Phalen, Tinel, and Brianne test Skin General: warm and dry. Normal skin color. Normal skin turgor Lesions: no lesions Rashes: no rashes Trauma: no lacerations or abrasions Wounds: no wounds Nails: normal Neuro General: patient oriented x3, gait normal and no focal neuro deficit Cranial nerves: Yes Equal, round and reactive pupils present Cognition (Neuro): normal cognition Gait exam (Neuro): Normal gait present Sensory Exam: No Sensory deficit (Neuro) Psych Affect: normal affect Assessment and Plan Assessment & Plan (1) Numbness of upper extremity: Code(s): R20.0 - Anesthesia of skin Plan: Reports numbness to both forearms which she attributes to carpal tunnel syndrome. Request ortho referral Negative Phalen, Tinel, and Brianne test Continue to take ibuprofen as needed for pain or discomfort Continue to take psychotropic medications as prescribed and follow-up with Behavioral team Follow-up with PCP in 1-2 months for anxiety and depression Return sooner with worsening or new symptoms Verbalized understanding and agreed with treatment plan. (2) Tinnitus of both ears: Code(s): H93.13 - Tinnitus, bilateral Plan: Reports tinnitus of both ears years. She reports constant ringing of her years. She requests ENT referral. Normal bilateral ear exam Referred to ENT Follow-up with worsening or new symptoms Verbalized understanding and agreed with treatment plan. Orders: Referrals Ear/Nose/Throat Referral H93.13 - Tinnitus, bilateral Orthopedics Referral R20.0 - Anesthesia of skin Coding Level of Care Code Est Pt Level 3 (38778) Diagnoses Numbness of upper extremity R20.0 Tinnitus of both ears H93.13
== END 2023-01-08 11:37 | disposition home or self-care (01) ==
PROVIDERS: PCP Hospitalist; Visit Provider Nurse Practitioner Family
DX: R20.0 Anesthesia of skin (principal); H93.13 Tinnitus, bilateral
CPT/HCPCS: 99213

== ENCOUNTER 2023-02-24 14:57 | Outpatient (AMB) | payer MEDICARE, SELFPAY ==
[2023-02-24 15:34] VITALS: BMI 25.1
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
== END 2023-02-24 16:09 | disposition home or self-care (01) ==
LOC: HO.HOS 14:57
PROVIDERS: PCP Hospitalist; Visit Provider Orthopaedic Surgery
DX: M72.0 Palmar fascial fibromatosis [Dupuytren] (principal); R20.0 Anesthesia of skin; R20.2 Paresthesia of skin
CPT/HCPCS: 99203

== ENCOUNTER → 2023-02-24 14:57 | Outpatient (BNVA) | payer MEDICARE, OTHER, SELFPAY | PROVIDERS: PCP Hospitalist; Visit Provider Orthopaedic Surgery ==

== ENCOUNTER 2023-03-11 13:22 | Outpatient (REF) | payer MEDICARE, MEDICAID, SELFPAY | END 2023-03-11 13:23 | disposition home or self-care (01) | LOC: HO.NEURO 13:22 | PROVIDERS: PCP Hospitalist; Visit Provider Orthopaedic Surgery | DX: R20.0 Anesthesia of skin (principal); R20.2 Paresthesia of skin | CPT/HCPCS: 95886; 95911 ==

== ENCOUNTER → 2023-03-11 13:31 | Outpatient (BNV) | payer MEDICARE, SELFPAY | PROVIDERS: PCP Hospitalist; Visit Provider Physical Medicine & Rehabilitation | DX: G56.13 Other lesions of median nerve, bilateral upper limbs (principal); G56.03 Carpal tunnel syndrome, bilateral upper limbs | CPT/HCPCS: 95886; 95911 ==

== ENCOUNTER 2023-04-16 15:20 | Outpatient (AMB) | payer MEDICARE, SELFPAY ==
[2023-04-16 15:49] VITALS: BP 134/72; PULSE 64; RESP 13; TEMP 36.9; O2SAT 96; BMI 26.1
--- NOTE | 2023-04-16 15:49 | A.OFFPC_ITS ---
Vital Signs 04/16/23 15:49 Height 5 ft 5 in Weight 157 lb BMI 26.1 BP 134/72 Blood Pressure Location Rt brachial Position Sitting Respiration 13 Pulse 64 Pulse Source Pulse Oximeter Temp 98.4 F Temp Source Oral Pulse Oximetry (%) 96 Oxygen Delivery Method Room Air Intake Visit Reasons: Cataract Surgery-04/22-05/06, SV patient Intake Note: Patient is here for a preop exam and she shares she has had many surgeries with anesthesia and no reactions. Having surgery [facility]. Gas Blender Required: No Accompanied by: Self / Same As Patient Allergies No Known Allergies Allergy (Verified 04/16/23 15:57) Medication List - Last Reconciled 04/16/23 by Luigi Maria CNP blood pressure monitor As directed buspirone 30 mg PO BID clonidine HCl 0.1 mg PO TID ibuprofen 600 mg PO Q8H PRN lisinopril 20 mg PO DAILY mirtazapine 15 mg PO BEDTIME venlafaxine ER 150 mg PO BEDTIME Tobacco use date assessed: 01/08/23 Fall risk assessment: 1 Fall in past year Last assessed Fall Risk: 04/16/23 Dental Screening Dental Screen Date: 04/16/23 Did you have a dental visit in the last 12 months?: Yes Did you have a dental problem in the last 6 months where you did not have access to dental care?: No Was dental information given to patient?: Patient has dentist HPI HPI Comments History of Present Illness Details 72-year-old female presents for preop ex am for cataract surgery of both eyes. She notes that she is having the procedure done with [facility]. Her left eye surgery is scheduled for 04/22/2023 and right eye for 05/06/2023. Her most recent blood work was 19 months ago. She denies adverse reactions to anesthesia. She offers no complaints and denies acute symptoms. 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 Bert Odell, Fay Ugalde, Selvin Stafford and colleagues, with an educational jose maria from [employer] Review of Systems Const Details: Const Denies chills, Denies fatigue, Denies fever(s), Denies headache(s) and Denies weakness ENT Denies dizziness and Denies headache(s) Card Denies chest pain, Denies lightheadedness, Denies dyspnea and Denies other (Palpitations) Resp Denies cough, Denies dyspnea, Denies wheezing and Denies other ( shortness of breath) GI Denies abdominal pain, Denies melena, Denies hematochezia, Denies change in bowel habits, Denies dyspepsia and Denies nausea Denies hematuria and Denies dysuria Musc Denies abnormal gait, Denies myalgias, Denies arthralgias, Denies numbness and Denies tingling Skin/Breast Denies rash, Denies unusual bruising and Denies wounds Neuro Denies abnormal gait, Denies dizziness, Denies headache(s), Denies memory loss, Denies numbness, Denies Sensory deficit (Neuro), Denies tingling and Denies weakness Psych Denies anxiety, Denies depression, Denies memory loss Endo Denies cold intolerance, Denies fatigue, Denies heat intolerance, Denies polydipsia and Denies polyuria Aller/Immun Denies wheezing Physical exam (Primary Care) Vital Signs: Last Vital Signs Temp 98.4 F 04/16/23 15:49 Pulse 64 04/16/23 15:49 Resp 13 04/16/23 15:49 BP 134/72 04/16/23 15:49 Pulse Ox 96 04/16/23 15:49 Oxygen Delivery Method Room Air 04/16/23 15:49 BMI result Body Mass Index 26.1 Tobacco/Smoking Status: Tobacco use Status Tobacco use date assessed 01/08/23 04/16/23 15:54 Patient Tobacco Use Status Former Tobacco user 04/16/23 15:54 e-Cigarette/Vaping Use Never Used 04/16/23 15:54 Const Other: General: no acute distress and well developed Nutritional Appearance: well nourished Orientation/consciousness: patient oriented x3 HENMT Head: Yes normocephalic and Yes atraumatic Eyes General: appearance normal, both eyes and all related structures Pupils: Equal, round and reactive pupils present EOM: EOMs intact bilaterally Resp Effort & Inspection: normal respiratory effort Auscultation: clear to auscultation bilaterally Cardio Rate: regular rate Rhythm: regular rhythm Heart sounds: S1 normal heart sound present, S2 normal heart sound present, no gallops, no murmurs and no rubs GI Palpation (GI): No Abdominal aortic bruit present, Soft to palpation, nontender, No hepatosplenomegaly present and No Rebound tenderness present Auscultation: normal bowel sounds General: Yes no CVA tenderness Back/Spine/Pelvis Back: no CVA tenderness Cervical Spine: cervical ROM normal and No Cervical spine tenderness Thoracic/Lumbar Spine: thoraco-lumbar ROM normal, No pain with thoraco-lumbar ROM, No thoracic spinal tenderness and No lumbar spinal tenderness Extrem General: Yes normal to inspection, No edema and No calf tenderness Skin General: warm and dry. Normal skin color. Normal skin turgor Neuro General: patient oriented x3, gait normal and no focal neuro deficit Cranial nerves: Yes Equal, round and reactive pupils present Cognition (Neuro): normal cognition Gait exam (Neuro): Normal gait present Sensory Exam: No Sensory deficit (Neuro) Psych Appearance: grossly normal Affect: normal affect Attitude: cooperative Thought process: Normal thought process present Assessment and Plan Assessment & Plan (1) Pre-op evaluation: Code(s): Z01.818 - Encounter for other preprocedural examination Plan: Patient presents for an evaluation for preop exam for cataract surgery of both eyes scheduled this month Physical exam is normal VSS, heart RRR, LSC bilaterally Patient is medically stable at this time with no identified contraindications for cataract surgery CBC and BMP ordered. Advised to get blood work done before the date of her surgery. Will review results and make changes to her care plan as needed Verbalized understanding and agreed with the plan. Orders: Orders Basic Metabolic Panel Today Z01.818 - Encounter for other preprocedural examination Complete Blood Count no Diff Today Z01.818 - Encounter for other preprocedural examination Coding Level of Care Code Est Pt Level 3 (68349) Diagnoses Pre-op evaluation Z01.818
== END 2023-04-16 16:16 | disposition home or self-care (01) ==
PROVIDERS: PCP Hospitalist; Visit Provider Nurse Practitioner Family
DX: Z01.818 Encounter for other preprocedural examination (principal)
CPT/HCPCS: 99213

== ENCOUNTER 2023-04-17 09:35 | Outpatient (REF) | payer MEDICARE, SELFPAY ==
[2023-04-17 11:18] LABS: Hematocrit 44.7 % (37.0-47.0); Hemoglobin 14.4 g/dl (12.0-16.0); Mean Corpuscular HGB Conc 32.2 g/dl (31.0-35.0); Mean Corpuscular Hemoglobin 30.6 pg (27.0-33.0); Mean Corpuscular Volume 94.9 fL (80.0-98.0); Mean Platelet Volume 9.7 fL (9.4-12.3); Platelet Count 299 X10*3/uL (160-400); Red Blood Count 4.71 X10*6/uL (4.20-5.50); Red Cell Distribution Width 12.1 % (11.0-16.0); White Blood Count 7.2 X10*3/uL (4.8-10.8)
[2023-04-17 11:35] LABS: Anion Gap 13 (12-20); Blood Urea Nitrogen 25 mg/dL (9-16); Calcium 9.3 mg/dL (8.4-10.2); Carbon Dioxide 29 mmol/L (22-29); Chloride 103 mmol/L (96-108); Estimated Glomerular Filt Rate 56; Glucose Random 102 mg/dL (60-115); Potassium 3.9 mmol/L (3.3-5.1); Sodium 141 mmol/L (135-145)
== END 2023-04-17 09:36 | disposition home or self-care (01) ==
LOC: HO.LAB 09:35
PROVIDERS: PCP Nurse Practitioner Family; Visit Provider Nurse Practitioner Family
DX: Z01.818 Encounter for other preprocedural examination (principal)
CPT/HCPCS: 36415; 80048; 85027

== ENCOUNTER 2023-06-16 13:34 | Outpatient (AMB) | payer MEDICARE, MEDICAID, SELFPAY ==
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
== END 2023-06-16 15:07 | disposition home or self-care (01) ==
PROVIDERS: PCP Hospitalist; Visit Provider Orthopaedic Surgery
DX: G56.03 Carpal tunnel syndrome, bilateral upper limbs (principal); M72.0 Palmar fascial fibromatosis [Dupuytren]; F10.10 Alcohol abuse, uncomplicated
CPT/HCPCS: 99214

== ENCOUNTER → 2023-06-16 13:34 | Outpatient (BNVA) | payer MEDICARE, OTHER, SELFPAY | PROVIDERS: PCP Hospitalist; Visit Provider Orthopaedic Surgery | DX: G56.03 Carpal tunnel syndrome, bilateral upper limbs (principal); M72.0 Palmar fascial fibromatosis [Dupuytren]; F10.20 Alcohol dependence, uncomplicated | CPT/HCPCS: 99212 ==

== ENCOUNTER 2023-08-26 08:38 | Day surgery (SDC) | payer MEDICARE, MEDICAID, SELFPAY ==
--- NOTE | 2023-08-26 09:37 | W.PM.OPN ---
Operative Note Operative Note Date of Service: 08/26/23 Narrative: Preop diagnosis: 1. Left Carpal tunnel syndrome Postop diagnosis: same Procedure: 1. Left Carpal tunnel release Surgeon: Gina Garza MD Anesthesia: local block using 1% lidocaine with epinephrine Findings: Thickened transverse carpal ligament. EBL: Less than 5 mL Specimens: None Complications: None Disposition: Brought to recovery room in stable condition Plan: Follow-up for 10-14 days for wound check and suture removal Indications: The patient is 73 years old, with left carpal tunnel syndrome that has been unresponsive to nonoperative management. The risks and benefits of operative treatment including but not limited to risk of damage to blood vessels, nerves, tendons, infection, persistent pain, persistent symptoms, or possible need for additional surgery were discussed with the patient and the patient wishes to proceed with surgery. Procedure: Once consent was obtained a local block was performed using a combination of 1% lidocaine with epinephrine. The patient was then brought back to the operating suite and placed on the operative table in supine position. The left upper extremity was prepped and draped in a standard surgical fashion. Once assured that we had a good block, a 2.0 cm longitudinal incision was made centered over the carpal tunnel. The incision was made through the skin to the subcutaneous tissues using a #15 blade. Dissection was made down to the level of the transverse carpal ligament with care being taken to protect the palmar cutaneous nerve. Once the transverse carpal ligament was clearly visualized, a longitudinal incision was made in the transverse carpal ligament 1st using a #15 blade, then using tenotomy scissors under direct visualization. Care was taken to look for and protect the motor branch of the median nerve when seen in this area. Once satisfied with our carpal tunnel release the wound was copiously irrigated with normal saline and hemostasis was obtained with a brief period of local pressure. The skin edges were reapproximated with some 5.0 nylon suture material and a sterile dressing was applied. The patient appears to have tolerated the procedure well and with no complications. All digits were well vascularized at the conclusion of the case.
--- NOTE | 2023-08-26 09:37 | MHC.SHP ---
Pre-Procedural Eval Section A - 24 Hr Update-Section A only Date of Service: 08/26/23 The patient is an INPATIENT: No Changes since office visit: No Cold of Flu in the past 2 weeks, No New Medical Problems, No Changes in Medication and No Patient answered all questions The patient has been examined within 24 hours of the surgical procedure. The History & Physical has been completed within 30 days and I have reviewed it.: Yes Section B - Complete if H&P > 30 days Chief Complaint: Carpal tunnel syndrome, left upper limb Allergies: Allergies Allergy/AdvReac Type Severity Reaction Status Date / Time No Known Allergies Allergy Verified 06/16/23 14:14 Exam Exam Comment: Left carpal tunnel syndrome Plan Diagnosis/Plan: Unchanged I have reviewed the history and physical and performed a pertinent physical examination on my patient. No changes have occurred unless specified. Time Spent With Patient Time: Total time managing care of this patient today ____ minutes.
[2023-08-26 10:10] VITALS: BMI 26.1
[2023-08-26 10:16] VITALS: BP 159/63; PULSE 70; RESP 16; TEMP 37.1; O2SAT 94
[2023-08-26 11:30] VITALS: BP 175/58; PULSE 77; RESP 18; O2SAT 95
== END 2023-08-26 11:33 | disposition home or self-care (01) ==
PROVIDERS: PCP Nurse Practitioner Family; Visit Provider Orthopaedic Surgery
PROC: (CPT 64721; principal; 2023-08-26 10:20)
DX: G56.02 Carpal tunnel syndrome, left upper limb (principal); R20.0 Anesthesia of skin; M72.0 Palmar fascial fibromatosis [Dupuytren]; F10.10 Alcohol abuse, uncomplicated; Z87.891 Personal history of nicotine dependence
CPT/HCPCS: 64721; J0171

== ENCOUNTER → 2023-08-26 08:38 | Outpatient (BNV) | payer MEDICARE, MEDICAID, SELFPAY | PROVIDERS: PCP Nurse Practitioner Family; Visit Provider Orthopaedic Surgery | DX: G56.02 Carpal tunnel syndrome, left upper limb (principal) | CPT/HCPCS: 64721 ==

== ENCOUNTER 2023-09-08 13:47 | Outpatient (AMB) | payer MEDICARE, SELFPAY ==
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
== END 2023-09-08 14:22 | disposition home or self-care (01) ==
PROVIDERS: PCP Hospitalist; Visit Provider Orthopaedic Surgery
DX: G56.03 Carpal tunnel syndrome, bilateral upper limbs (principal); M72.0 Palmar fascial fibromatosis [Dupuytren]; F10.10 Alcohol abuse, uncomplicated
CPT/HCPCS: 99214

== ENCOUNTER → 2023-09-08 13:47 | Outpatient (BNVA) | payer MEDICARE, OTHER, SELFPAY | PROVIDERS: PCP Hospitalist; Visit Provider Orthopaedic Surgery | DX: Z47.89 Encounter for other orthopedic aftercare (principal); M72.0 Palmar fascial fibromatosis [Dupuytren]; G56.01 Carpal tunnel syndrome, right upper limb; F10.10 Alcohol abuse, uncomplicated; Z86.69 Personal history of other diseases of the nervous system and sense organs; Z98.890 Other specified postprocedural states | CPT/HCPCS: 99212 ==

== ENCOUNTER 2023-11-08 11:17 | Day surgery (SDC) | payer MEDICARE, MEDICAID, SELFPAY ==
--- NOTE | 2023-11-08 10:23 | W.PM.OPN ---
Operative Note Operative Note Date of Service: 11/08/23 Narrative: Preop diagnosis: 1. Right Carpal tunnel syndrome Postop diagnosis: same Procedure: 1. Right Carpal tunnel release Surgeon: Gina Garza MD Anesthesia: local block using 1% lidocaine with epinephrine Findings: Thickened transverse carpal ligament. EBL: Less than 5 mL Specimens: None Complications: None Disposition: Brought to recovery room in stable condition Plan: Follow-up for 10-14 days for wound check and suture removal Indications: The patient is a 73 years old, with right carpal tunnel syndrome that has been unresponsive to nonoperative management. The risks and benefits of operative treatment including but not limited to risk of damage to blood vessels, nerves, tendons, infection, persistent pain, persistent symptoms, or possible need for additional surgery were discussed with the patient and the patient wishes to proceed with surgery. Procedure: Once consent was obtained a local block was performed using a combination of 1% lidocaine with epinephrine. The patient was then brought back to the operating suite and placed on the operative table in supine position. The right upper extremity was prepped and draped in a standard surgical fashion. Once assured that we had a good block, a 2.0 cm longitudinal incision was made centered over the carpal tunnel. The incision was made through the skin to the subcutaneous tissues using a #15 blade. Dissection was made down to the level of the transverse carpal ligament with care being taken to protect the palmar cutaneous nerve. Once the transverse carpal ligament was clearly visualized, a longitudinal incision was made in the transverse carpal ligament 1st using a #15 blade, then using tenotomy scissors under direct visualization. Care was taken to look for and protect the motor branch of the median nerve when seen in this area. Once satisfied with our carpal tunnel release the wound was copiously irrigated with normal saline and hemostasis was obtained with a brief period of local pressure. The skin edges were reapproximated with some 5.0 nylon suture material and a sterile dressing was applied. The patient appears to have tolerated the procedure well and with no complications. All digits were well vascularized at the conclusion of the case.
[2023-11-08 12:32] VITALS: BMI 28.1
[2023-11-08 12:33] VITALS: BP 159/79; PULSE 62; RESP 18; TEMP 36.8; O2SAT 96
--- NOTE | 2023-11-08 15:10 | MHC.SHP ---
Pre-Procedural Eval Section A - 24 Hr Update-Section A only Date of Service: 11/08/23 The patient is an INPATIENT: No Changes since office visit: No Cold of Flu in the past 2 weeks, No New Medical Problems, No Changes in Medication and No Patient answered all questions The patient has been examined within 24 hours of the surgical procedure. The History & Physical has been completed within 30 days and I have reviewed it.: Yes Section B - Complete if H&P > 30 days Chief Complaint: Carpal tunnel syndrome, right upper limb Allergies: Allergies Allergy/AdvReac Type Severity Reaction Status Date / Time No Known Allergies Allergy Verified 09/08/23 13:56 Exam Exam Comment: Right carpal tunnel syndrome Plan Diagnosis/Plan: Unchanged I have reviewed the history and physical and performed a pertinent physical examination on my patient. No changes have occurred unless specified. Time Spent With Patient Time: Total time managing care of this patient today ____ minutes.
[2023-11-08 16:15] VITALS: BP 156/71; PULSE 68; RESP 16; TEMP 36.9; O2SAT 98
--- OUTSIDE RECORDS SUMMARY | 2023-11-12 09:22 | XMS_ITS | Continuity of Care Document ---
Author Organization [facility] ter Address [address] [place] [address]- Care Team Providers Care Receiving Operator Name Role Phone Jory WARREN, Tequila Randhawa Primary Care Physician [phone] Encounter [facility] [place] Date(s): 09/21/22 - 09/21/[address] [address]- Encounter Diagnosis Alcohol intoxication(Final) - 09/21/22 Discharge Disposition: A-D/C Home Attending Physician: Gustavo Mendoza MD Admitting Physician: Gustavo Mendoza MD Referring Physician: Not on Staff, Referring MD Allergies, Adverse Reactions, Alerts No Known Allergies Medications lisinopril 20 mg oral tablet 20 mg, 1, tablet, By Mouth, Daily, # 7 tablet, Refills 0, Tot. Refills 0, Maintenance, 09/14/21 15:03:00 EDT, Print Requisition, Partial fill upon patient request if the prescription is for a schedule II opioid drug. Start Date: 09/14/21 Status: Ordered LORazepam 0.5 mg oral tablet 1 tablet = 0.5 mg, By Mouth, 4 times a day, PRN for anxiety, # 28 tablet, 0 Refills, Maintenance, 09/14/21 15:04:00 EDT, Tablet, Partial fill upon patient request if the prescription is for a schedule II opioid drug. Start Date: 09/14/21 Status: Ordered naltrexone 50 mg oral tablet 1 tablet = 50 mg, By Mouth, Daily, # 7 tablet, 0 Refills, Maintenance, 09/14/21 15:04:00 EDT, Tablet, Partial fill upon patient request if the prescription is for a schedule II opioid drug. Start Date: 09/14/21 Status: Ordered traZODone 50 mg oral tablet 25 mg, 0.5, tablet, By Mouth, Daily at bedtime, # 7 tablet, Refills 0, Tot. Refills 0, Maintenance,09/14/21 15:04:00 EDT, Print Requisition, Partial fill upon patient request if the prescription is for a schedule II opioid drug. Start Date: 09/14/21 Status: Ordered venlafaxine 37.5 mg oral capsule, extended release 37.5 mg, 1, capsule, By Mouth, Daily, # 7 capsule, Refills 5, Tot. Refills 5, Maintenance, 09/14/2214:04:00 EDT, Print Requisition, Partial fill upon patient request if the prescription is for a schedule II opioid drug. Start Date: 09/14/21 Status: Ordered Vital Signs Most recent to oldest [Reference Range]: 1 2 Height 164 cm (09/21/22 6:30 PM) Weight 69 kg (09/21/22 6:30 PM) Oxygen Saturation [94-100 %] 98 % (09/21/22 8:02 PM) 100 % (09/21/22 6:33 PM) Pulse Rate [55-90 bpm] 66 bpm (09/21/22 8:02 PM) 70 bpm (09/21/22 6:33 PM) Blood Pressure [90-138/55-84 mm Hg] 106/ 50mm Hg (09/21/22 8:02 PM) 130/78mm Hg (09/21/22 6:33 PM) Respiratory Rate [16-30 br/min] 16 br/mi n (09/21/22 8:02 PM) 16 br/min (09/21/22 6:33 PM) Temperature [96.8-100.4 DegF] 98.1 DegF (09/21/22 8:02 PM) 98.1 DegF (09/21/22 6:33 PM) Mode of Delivery (Oxygen) Room air (09/21/22 8:02 PM) Room air (09/21/22 6:33 PM) Temperature Route Oral (09/21/22 8:02 PM) Oral (09/21/22 6:33 PM) Dry Weight 69 kg (09/21/22 6:30 PM) Note * June Nicholas DO: PERFORM Event Display: Patient Education Leaflets Authored Date: [id number] Alcohol Intoxication ?? [id number] Alcohol Intoxication Alcohol intoxication is very serious. It occurs when you drink alcohol faster than your liver can break it down. Severe intoxication is a medical emergency. It's also called alcohol overdose or alcohol poisoning. It can lead to . Here are some johnson facts: ??? It can take 10 minutes or more??to start??to??feel the effects of a drink. So it's easy to drink more than you planned. Binge drinking can lead to an alcohol overdose. Binge drinking is having: o5 or more drinks over a short time for men o 4 or more drinks over a short time for women ??? One drink may be more than 1 serving of alcohol. In some cases, a drink can be 2 to 4 servings. This depends on the type of drink. ??? It takes about 1 hour for your body to break down 1 serving of alcohol. If you have more than 1 drink, it can take a few hours or more. ??? People with alcohol abuse disorders are more likely to get alcohol poisoning. But it can happen to anyone who drinks too much alcohol. Even a first-time drinker is at risk. ??? Many things affect how drinks will affect you. These include: o If you've eaten o How fast you drink o Your weight o How much you normally drink (or not)o Medicines you are taking o If you have a chronic disease o If you are male or female o How old you are Symptoms of alcohol intoxication Mild intoxication ??? Feel more relaxed, less tense ??? Slightly slurred speech ??? Sleepiness ??? Poor motor skills Moderate intoxication ??? Changing behavior, aggression, depression ??? Poor judgment ??? Confusion ??? Trouble focusing ??? Poor balance and coordination ??? Worsening slurred speech Severe intoxication ??? Vomiting ??? Seizures ??? Fainting or passing out (unconscious) ??? Cold, clammy skin ??? Slow or irregular breathing ??? Low body temperature (hypothermia) ??? Coma ?? Health effects Alcohol causes health problems.??This can happen after only drinking a little. There is no set number of drinks or amount of alcohol that's too much.??How much you drink at one time affects your health. And so does drinking often. Alcohol affects your whole body in these ways: ??? Brain.??Alcohol can harm parts of the brain that affect your balance, memory, thinking, and feelings. It can cause memory loss, blackouts, depression, agitation, sleep cycle changes, and seizures. These changes may or may not go away. ??? Heart and vascular system.??Alcohol can damage heart muscle. This can cause the heart muscle to weaken and stretch (cardiomyopathy). This can lead to: o Trouble breathing o Irregular heartbeat o Atrial fibrillation o Leg swelling o Heart failure Alcohol also makes the blood vessels stiffen. This causes high blood pressure. All of these problems raise your risk for heart attacks or strokes. ??? Liver.??Alcohol causes fat to build up in the liver. This affects how the liver works. And it raises the risk for hepatitis. This condition leads to belly pain, appetite loss, yellow skin and eyes (jaundice), and bleeding problems. It also leads to harmful changes in the liver. These include??liver fibrosis and cirrhosis. This can affect your ability to fight off infections. These liver changes stop it from removing toxins in your blood. This can cause a brain disease called encephalopathy. ??? Pancreas.??Alcohol can cause inflammation of the pancreas (pancreatitis). It can lead to belly pain, fever, and diabetes. ??? Immune system.??Alcohol weakens your immune system. This makes it harder to fight off infections and colds. You'll also have a higherrisk of some infections. ??? Cancer risk.??Alcohol raises your risk of some types of cancer. They include cancer of the: o Mouth o Esophagus o Pharynx o Larynx o Liver o Breast ? Sexual function.??Alcohol abuse can also lead to sexual problems. There is no safe level of alcohol use for people who are or thinking of getting . Alcohol use in may cause lifelong harm to the baby. So alcohol should be avoided. It can also cause a group of defects called alcohol spectrum disorder. These defects can include physical problems. And also behavior and learning problems. ?? Home care for alcohol intoxication Follow these tips to care for yourself at home: ??? Don't drink any more alcohol. ??? Don't drive??until all effects of the alcohol have worn off. ??? Don't use machinery that can cause injuries. ??? Get lots of rest over the next few days. ??? Drink plenty of water and other drinks that don't have alcohol. ??? Try to eat regular meals. If you have been drinking a lot every day, you may have alcohol withdrawal. Symptoms often last 3 to 4 days. They may include: ??? Nervousness ??? Shakiness ??? Nausea ??? Sweating ??? Sleeplessness They may also include severe, life-threatening symptoms. These are known as delirium tremens (DTs).DTs typically begin between 48 and 96 hours after the last drink and last 1 to 5 days. They include: ??? Seizures ??? Confusion ??? Seeing or hearing things that are not there (hallucinations) Alcohol withdrawal can cause . Call your healthcare provider before you stop drinking. This isespecially important if you've had DTs during past alcohol withdrawals. They may be able to help you with medicine. They can also refer you to an inpatient detox program. Or stay with family or friends who know when to call for medical help and can support you. If you have severe symptoms, call your provider or call 911 for help (see below). ?? Follow-up care These groups can help you and your loved one: ??? Alcoholics Anonymous (A.A.). Gives support through a self-help fellowship. ?? Find A.A. meetings near you at www.aa.org. ??? Al-Anon. ?? Gives support to families at www.al-anon.org . Or call 731-021-1829. ??? SMART Recovery ( Self- Management and Recovery Training). A nationwide abstinence-oriented support group for people with addictive issues. This free program is focused on motivation to change, urge control, and living a balanced life. For more information and meetings near you, go to www.GrayBug.org/ ??? Substance Abuse and Mental Health Services Administration (SAMHSA) Treatment Processing Inspector. Free information on treatment resources in your area at https://findtreatment.gov/. Or call 170-409-4289. Call 911 Call 913 if any of these occur: ??? Trouble breathing or slow irregular breathing ??? Chest pain ??? Sudden weakness on 1 side of your body or sudden trouble speaking ??? Heavy bleeding or vomiting blood ??? Very sleepy or having trouble waking up ??? Fainting ??? Fast heart rate ??? Seizure ?? When to get medical advice Call your healthcare provider right away if any of these occur: ??? Severe shakiness? Fever of100.4??F (38??C) or higher, or as advised by your provider ??? Confusion or hallucinations ??? Painin your upper belly that gets worse ??? Repeated vomiting ?? Last Reviewed Date: 2021 ?? 6538-0129 The [employer]. All rights reserved. This information is not intended as a substitute for professional medical care. Always follow your healthcare professional's instructions. ?? Patient Care team information Care Team Personnel Name: Tequila Corley NP Position: Reference Physician Member Role: PCP Address: Address: [address] [place] [address]- Name: June Nicholas DO Position: [facility] Resident Member Role: ED Resident Address: Address: [address] [place] [id number]- Name: Gustavo Mendoza MD Position: [facility] ED Medicine MD Member Role: Admitting Physician Address: Address: [address] [place] [address]- Name: Janine Andersen RN Position: [facility] ED RN W/OE and Tasks Member Role: Patient Care Provider Name: Abigail Linares Position: [facility] ED [facility]
--- OUTSIDE RECORDS SUMMARY | 2023-11-12 09:22 | XMS_ITS | Continuity of Care Document ---
Author Organization [facility] ter Address [address] [place] [address]- Care Team Providers Care Warping Mill Operator Name Role Phone Victoriano Boo MD Primary Care Physician Encounter [facility] Date(s): 09/10/21 - 09/15/[address] [address]- Encounter Diagnosis Alcohol intoxication(Final) - 09/11/21 Discharge Disposition: A-D/C Home Attending Physician: Sathish Martines MD Admitting Physician: Sathish Martines MD Referring Physician: Not on Staff, Referring [...] recent to oldest [Reference Range]: 1 2 3 Oxygen Saturation [94-100 %] 100 % (09/15/21 11:00 AM) 98 % (09/15/21 8:44 AM) 97 % (09/15/21 2:42 AM) Pulse Rate [55-90 bpm] 67 bpm (09/15/21 11:00 AM) 60 bpm (09/15/21 9:03 AM) 60 bpm (09/15/21 8:44 AM) Blood Pressure [90-138/55-84 mm Hg] 157/65mm Hg *H* (09/15/21 11:00 AM) 147/59mm Hg *H* (09/15/21 9:03 AM) 149/57mm Hg *H* (09/15/21 8:44 AM) Respiratory Rate [16-30 br/min] 16 br/min (09/15/21 11:00 AM) 16 br/min (09/15/21 9:03 AM) 16 br/min (09/15/21 8:44 AM) Temperature [96.8-100.4 DegF] 97.2 DegF (09/15/21 11:00 AM) 97.7 DegF (09/15/21 8:44 AM) 98.1 DegF (09/15/21 2:42 AM) Mode of Delivery (Oxygen) Room air (09/15/21 11:00 AM) Room air (09/15/21 8:44 AM) Room air (09/15/21 2:42 AM) Blood pressure sites Arm, right (09/15/21 2:42 AM) Arm, left (09/14/21 6:35 PM) Arm, left (09/13/21 8:50 PM) Temperature Route Oral (09/15/21 11:00 AM) Oral (09/15/21 8:44 AM) Oral (09/15/21 2:42 AM)
== END 2023-11-08 16:35 | disposition home or self-care (01) ==
PROVIDERS: PCP Nurse Practitioner Family; Visit Provider Orthopaedic Surgery
PROC: (CPT 64721; principal; 2023-11-08 15:50)
DX: G56.01 Carpal tunnel syndrome, right upper limb (principal)
CPT/HCPCS: 64721; J0171

== ENCOUNTER → 2023-11-08 11:17 | Outpatient (BNV) | payer MEDICARE, MEDICAID, SELFPAY | PROVIDERS: PCP Nurse Practitioner Family; Visit Provider Orthopaedic Surgery | DX: G56.01 Carpal tunnel syndrome, right upper limb (principal) | CPT/HCPCS: 64721 ==

== ENCOUNTER 2023-11-23 12:01 | Outpatient (AMB) | payer MEDICARE, OTHER, SELFPAY ==
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
== END 2023-11-23 13:39 | disposition home or self-care (01) ==
PROVIDERS: PCP Hospitalist; Visit Provider Orthopaedic Surgery
DX: G56.03 Carpal tunnel syndrome, bilateral upper limbs (principal); M72.0 Palmar fascial fibromatosis [Dupuytren]; M25.561 Pain in right knee; M25.562 Pain in left knee; F10.10 Alcohol abuse, uncomplicated
CPT/HCPCS: 99024

== ENCOUNTER → 2023-11-23 12:01 | Outpatient (BNVA) | payer MEDICARE, MEDICAID, SELFPAY | PROVIDERS: PCP Hospitalist; Visit Provider Orthopaedic Surgery | DX: Z09 Encounter for follow-up examination after completed treatment for conditions other than malignant neoplasm (principal); M72.0 Palmar fascial fibromatosis [Dupuytren]; M25.561 Pain in right knee; M25.562 Pain in left knee; F10.10 Alcohol abuse, uncomplicated; Z86.69 Personal history of other diseases of the nervous system and sense organs | CPT/HCPCS: 99212 ==

== ENCOUNTER 2023-12-14 11:22 | Outpatient (REF) | payer MEDICARE, SELFPAY ==
--- NOTE | ~2023-12-14 | XR_ITS ---
EXAMINATION: XR BILATERAL KNEES CLINICAL INFORMATION: Pain in bilateral knees. COMPARISON: None available. TECHNIQUE: 3 views of each knee. FINDINGS: RIGHT KNEE: Moderate joint effusion. Faint chondrocalcinosis in the medial and lateral compartments. Mild narrowing of the lateral compartment. Small posterior patellar spurs. LEFT KNEE: Moderate joint effusion. Faint chondrocalcinosis in the medial and lateral compartments. Joint spaces are preserved. Small posterior patellar spurs. XR/XR knee LT 3V IMPRESSION: 1. Moderate bilateral joint effusions. 2. Mild degenerative changes in the bilateral knees.
--- NOTE | ~2023-12-14 | XR_ITS ---
EXAMINATION: XR BILATERAL KNEES CLINICAL INFORMATION: Pain in bilateral knees. COMPARISON: None available. TECHNIQUE: 3 views of each knee. FINDINGS: RIGHT KNEE: Moderate joint effusion. Faint chondrocalcinosis in the medial and lateral compartments. Mild narrowing of the lateral compartment. Small posterior patellar spurs. LEFT KNEE: Moderate joint effusion. Faint chondrocalcinosis in the medial and lateral compartments. Joint spaces are preserved. Small posterior patellar spurs. XR/XR knee RT 3V IMPRESSION: 1. Moderate bilateral joint effusions. 2. Mild degenerative changes in the bilateral knees.
== END 2023-12-14 11:23 | disposition home or self-care (01) ==
LOC: HO.HOSX 11:22
PROVIDERS: Visit Provider Orthopaedic Surgery
DX: M17.0 Bilateral primary osteoarthritis of knee (principal)
CPT/HCPCS: 73562; 99212

== ENCOUNTER 2023-12-14 12:49 | Outpatient (AMB) | payer MEDICARE, MEDICAID, SELFPAY ==
--- NOTE | 2023-12-14 12:59 | A.OFFVIS_ITS ---
Intake Visit Reasons: Newprob-B/L knee pain Intake Note: June is a 73 year old female who presents to the office today for bilateral knee pain. Pt states the right knee is worse than the left. Pt states this started a few years ago. She states within the past few months she has been experiencing pain especially when walking. She states the pain is mostly on the anterior part of her knee. Pt denies any previous surgeries or injections in her knees. She reports intermittent ?popping sensation? in her right knee. Allergies No Known Allergies Allergy (Verified 12/14/23 12:59) Medication List - Last Reconciled 12/14/23 by Kwadwo Vega MD blood pressure monitor As directed buspirone 30 mg PO BID clonidine HCl 0.1 mg PO TID ibuprofen 600 mg PO Q8H PRN lisinopril 20 mg PO DAILY mirtazapine 15 mg PO BEDTIME venlafaxine ER 150 mg PO BEDTIME PFSH Medical History ETOH abuse Family History Mother Diabetes Father Aortic aneurysm Social History Household Members: Other Alcohol intake: current Patient Tobacco Use Status: Former Tobacco user e-Cigarette/Vaping Use: Never Used Second Hand Smoke Exposure: No service: No Current occupational status: student and disabled 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 Current occupational exposures/hazards: No Cognitive needs: No Hearing needs: No Vision needs: Yes Physical Exam Const Other: Well-nourished well-developed very friendly female awake alert and oriented x3 in no acute distress Extrem Other: Bilateral lower extremity examination shows good capillary refill, no skin lesions noted, normal sensation light touch Bilateral knee examination shows minimal effusions, mild crepitus with range of motion, mild discomfort with range of motion, no instability Results Reviewed Results Reviewed: X-rays of the patient's bilateral knees taken today show mild diffuse joint space narrowing, no acute bony abnormalities Assessment & Plan Assessment & Plan (1) Right knee pain: Code(s): M25.561 - Pain in right knee Category: Medical (2) Left knee pain: Code(s): M25.562 - Pain in left knee Category: Medical Plan Ms. Read presents with bilateral knee pains due to early degenerative joint disease. I had a lengthy discussion with the patient regarding the treatment options. We will hold off on a cortisone injection for now. As per her request, I did give her a prescription for ibuprofen 800 mg tablets. She will continue walking for exercise. She will continue with her activity m odifications. She will contact me prior to her follow-up appointment in 4-6 weeks should her symptoms worsen in any way. Feel free to call me at any time should questions regarding her orthopedic management arise. Thank you very much for asking me to see this very friendly patient. I spent 20 minutes in reviewing the patient's records and imaging studies, seeing the patient and documenting in the medical record. Orders: Orders XR knee LT 3V Today M25.562 - Pain in left knee XR knee RT 3V Today M25.561 - Pain in right knee Medications: New ibuprofen 800 mg PO Q8H 1 month PRN 90 tabs 2RF pain Coding Level of Care Code New Pt Level 3 (55271) Diagnoses Right knee pain M25.561 Left knee pain M25.562
== END 2023-12-14 13:21 | disposition home or self-care (01) ==
PROVIDERS: PCP Hospitalist; Visit Provider Orthopaedic Surgery
DX: M25.561 Pain in right knee (principal); M25.562 Pain in left knee
CPT/HCPCS: 99213

== ENCOUNTER 2023-12-30 09:29 | Outpatient (REF) | payer MEDICARE, SELFPAY ==
--- NOTE | ~2023-12-30 | XR_ITS ---
EXAMINATION: XR SHOULDER, RIGHT XR SHOULDER, LEFT CLINICAL INFORMATION: Bilateral shoulder pain. COMPARISON: None available. TECHNIQUE: Two views of each shoulder. FINDINGS: RIGHT SHOULDER: Status post ORIF of the right proximal humeral fracture with an anterolateral plate and screw fixation construct. Surgical neck fragment by approximately 1 cm. There is a superomedially retracted greater tuberosity fragment by 1 cm. Osseous bridging at this fracture is possible, though not well seen on these images. Mild acromioclavicular and glenohumeral osteoarthritis. Subacromial spurring is present at the acromion. LEFT SHOULDER: Mild acromioclavicular osteoarthritis. Glenohumeral joint appears well preserved. No acute fractures. There are 2 foci of calcification at the anterior aspect of the proximal humeral shaft measuring 6 and 5 mm in diameter, likely corresponding to foci of calcific tendinitis at the pectoralis major insertion. Imaged portion of the left chest is unremarkable. XR/XR shoulder LT min 2V IMPRESSION: 1. Status post ORIF of the right proximal humeral fracture. Osseous bridging at this fracture is possible, though not well seen on these images. 2. 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 3. Mild acromioclavicular osteoarthritis in the left shoulder. 4. Calcific tendinitis at the left pectoralis major insertion on the proximal humerus.
--- NOTE | ~2023-12-30 | XR_ITS ---
EXAMINATION: XR SHOULDER, RIGHT XR SHOULDER, LEFT CLINICAL INFORMATION: Bilateral shoulder pain. COMPARISON: None available. TECHNIQUE: Two views of each shoulder. FINDINGS: RIGHT SHOULDER: Status post ORIF of the right proximal humeral fracture with an anterolateral plate and screw fixation construct. Surgical neck fragment by approximately 1 cm. There is a superomedially retracted greater tuberosity fragment by 1 cm. Osseous bridging at this fracture is possible, though not well seen on these images. Mild acromioclavicular and glenohumeral osteoarthritis. Subacromial spurring is present at the acromion. LEFT SHOULDER: Mild acromioclavicular osteoarthritis. Glenohumeral joint appears well preserved. No acute fractures. There are 2 foci of calcification at the anterior aspect of the proximal humeral shaft measuring 6 and 5 mm in diameter, likely corresponding to foci of calcific tendinitis at the pectoralis major insertion. Imaged portion of the left chest is unremarkable. XR/XR shoulder RT min 2V IMPRESSION: 1. Status post ORIF of the right proximal humeral fracture. Osseous bridging at this fracture is possible, though not well seen on these images. 2. 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 3. Mild acromioclavicular osteoarthritis in the left shoulder. 4. Calcific tendinitis at the left pectoralis major insertion on the proximal humerus.
== END 2023-12-30 09:30 | disposition home or self-care (01) ==
LOC: HO.HOSX 09:29
PROVIDERS: Visit Provider Orthopaedic Surgery
DX: M75.42 Impingement syndrome of left shoulder (principal); M75.41 Impingement syndrome of right shoulder
CPT/HCPCS: 73030; 99212

== ENCOUNTER 2023-12-30 12:43 | Outpatient (AMB) | payer MEDICARE, MEDICAID, SELFPAY ==
--- NOTE | 2023-12-30 12:57 | MHC.OFFVIS ---
Intake Visit Reasons: OV- Arnold shoulder pain Intake Note: June is a 73 year old female who presents with complaints of intermittent discomfort in both of her shoulders. The patient states that she fractured her right proximal humerus approximately 5 years ago. She subsequently underwent surgery following the injury. She denies any fevers or chills. She has not had a cortisone injection. She has been doing stretching exercises on her own. She states that she also plans to join [employer] [facility] in order to begin an exercise program. Allergies No Known Allergies Allergy (Verified 12/30/23 12:57) Medication List - Last Reconciled 12/30/23 by Kwadwo Vega MD blood pressure monitor As directed buspirone 30 mg PO BID clonidine HCl 0.1 mg PO TID ibuprofen 600 mg PO Q8H PRN ibuprofen 800 mg PO Q8H PRN 1 month lisinopril 20 mg PO DAILY mirtazapine 15 mg PO BEDTIME venlafaxine ER 150 mg PO BEDTIME PFSH Medical History Hx of fracture of humerus (~2018) ETOH abuse Family History Mother Diabetes Father Aortic aneurysm Social History Household Members: Other Alcohol intake: current Patient Tobacco Use Status: Former Tobacco user e-Cigarette/Vaping Use: Never Used Second Hand Smoke Exposure: No service: No Current occupational status: student and disabled 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 Current occupational exposures/hazards: No Cognitive needs: No Hearing needs: No Vision needs: Yes Physical Exam Const Other: Well-nourished well-developed very friendly female awake alert and oriented x3 in no acute distress Extrem Other: Bilateral upper extremity examination shows good capillary refill, no skin lesions noted, normal sensation light touch Right shoulder examination shows almost full range of motion when compared to her left shoulder, mild discomfort with range of motion, positive impingement signs, her surgical incision is well healed, no erythema, no signs of infection, 4+ out of 5 strength with supraspinatus testing Left shoulder examination positive impingement signs, 4+ out of 5 strength with supraspinatus testing, no instability Results Reviewed Results Reviewed: X-rays of the patient's right shoulder show a proximal humerus plate in good position with no signs of loosening, cortical bone crossing the previous fracture site, no evidence of avascular necrosis, a type 2 acromion X-rays of the patient's left shoulder show moderate to severe acromioclavicular joint narrowing, a type 2 acromion, no acute bony abnormalities Assessment & Plan Assessment & Plan (1) Right shoulder pain: Code(s): M25.511 - Pain in right shoulder Category: Medical (2) Left shoulder pain: Code(s): M25.512 - Pain in left shoulder Category: Medical Plan Ms. Read presents with bilateral shoulder pains due to impingement syndrome. I had a lengthy discussion with the patient regarding the treatment options. She wishes to hold off on a cortisone injection. She states that she will continue taking ibuprofen as needed for her discomfort. She does not wish to go to formal physical therapy. She states that she is going to join a gym and begin an exercise program. She will follow up with me on an as-needed basis should her symptoms worsen in any way. Feel free to call me at any time should questions regarding her orthopedic management arise. I spent 22 minutes in reviewing the patient's records and imaging studies, seeing the patient and documenting in the medical record. Orders: Orders XR shoulder RT min 2V 12/30/23 M25.511 - Pain in right shoulder XR shoulder LT min 2V 12/30/23 M25.512 - Pain in left shoulder Coding Level of Care Code Est Pt Level 3 (66619) Diagnoses Right shoulder pain M25.511 Left shoulder pain M25.512
== END 2023-12-30 13:18 | disposition home or self-care (01) ==
PROVIDERS: PCP Hospitalist; Visit Provider Orthopaedic Surgery
DX: M25.511 Pain in right shoulder (principal); M25.512 Pain in left shoulder
CPT/HCPCS: 99213

== ENCOUNTER 2024-01-28 12:16 | Outpatient (AMB) | payer MEDICARE, SELFPAY ==
--- NOTE | 2024-01-28 12:17 | MHC.PC.OV ---
Vital Signs 01/28/24 12:34 Height 5 ft 4 in Weight 160 lb BMI 27.5 BP 140/70 H Blood Pressure Location Lt brachial Position Sitting Respiration 16 Pulse 57 Pulse Source Pulse Oximeter Temp 97.6 F Temp Source Oral Pulse Oximetry (%) 97 Oxygen Delivery Method Room Air Intake Visit Reasons: reestablish care med refill Intake Note: patient here to re- establish care and med refill. 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: No Is last menstrual period known: No Post menopausal: No Patient : No Allergies zoloft Allergy (Mild, Uncoded 01/28/24 12:41) Rash Medication List - Last Reviewed 01/28/24 by Jennifer Lynn blood pressure monitor As directed buspirone 30 mg PO BID ibuprofen 800 mg PO Q8H PRN 1 month lisinopril 20 mg PO DAILY mirtazapine 15 mg PO BEDTIME venlafaxine ER 150 mg PO BID Tobacco use date assessed: 01/28/24 Fall risk assessment: 1 Fall in past year Last assessed Fall Risk: 01/28/24 Dental Screening Dental Screen Date: 01/28/24 Did you have a dental visit in the last 12 months?: Yes Did you have a dental problem in the last 6 months where you did not have access to dental care?: No Was dental information given to patient?: Patient has dentist HPI HPI Comments History of Present Illness Details New patient Prior PCP:? [facility] [place], Tequila Corley NP Last office visit/CPE: 08/31/2022 Acute issue(s): Hypertension -She is on Lisinopril 20mg daily Anxiety, depression, PTSD -She is on Venlafaxine ER 150mg twice daily, Mirtazapine 15mg QHS, and Buspirone 30mg twice daily. She reports controlled anxiety and depressive symptoms Bilateral shoulder and knee pain -She is on Ibuprofen 800mg Q8H PRN Tinnitus and ROBINSON bilaterally -She was followed by ENT and was advised to get hearing aids. She notes that hearing aids are expensive but plans on purchasing them Poor vision both eyes -h/o bilat cataract surgery. Followed [facility]; last appointment was about 6 months ago PMHx: Hypertension, bilateral shoulder and knee pain, alcohol abuse in remission, kappa tunnel syndrome of right and left wrist, Dupuytren's disease of palm of left hand, tinnitus, anxiety, and depression SurgHx: S/p right and left carpal tunnel release, bilat cataract surgery FHx: Mom: Alcohol abuse, diabetes. Dad: Aortic aneurysm SocHx: Nonsmoker. Drinks 2 glasses of wine 2-3 days weekly. No recreational drugs She notes that her last eye exam was with [facility] about 6 months ago She notes that her last colonoscopy was about 6 years ago with [facility]: normal. She requests a colonoscopy She states that her last mammogram was several years ago: benign calcifications. She declines mammogram She notes that her last pap smear test was several years ago: normal . She declines pap smear test at this time She states that she has not been vaccinated for shingles or pneumonia and will request these vaccines form her local pharmacy She has never had a bone density scan She is followed by a psychiatrist at [facility] every 3 months. Her psychiatrist manages her psychotropic medications. She was follow by a therapist but stopped following her about 3 months ago. She notes that she has PTSD and requests a PTSD specialist. She states that her psychiatrist cannot find her a PTSD specialist She denies acute symptoms at this time [facility] Medical History Hx of fracture of humerus (~2019) ETOH abuse Family History (Updated 01/28/24 @ 12:31 by Jennifer Lynn) Mother Diabetes Alcohol abuse FH: mental illness Father Aortic aneurysm Maternal Uncle Alcohol abuse Son Alcohol abuse Daughter Alcohol abuse Sister Substance abuse Social History Household Members: Other Housing: Apartment Alcohol intake: current Patient Tobacco Use Status: Never used Tobacco e-Cigarette/Vaping Use: Never Used Second Hand Smoke Exposure: No service: No Current occupational status: student and disabled 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 1. Little interest or pleasure in doing things: not at all 2. Feeling down, depressed, or hopeless: not at all 3. Trouble falling or staying asleep, or sleeping too much: not at all 4. Feeling tired or having little energy: not at all 5. Poor appetite or overeating: not at all 6. Feeling bad about yourself - or that you are a failure or have let yourself or your family down: not at all 7. Trouble concentrating on things, such as reading the newspaper or watching television: not at all 8. Moving or speaking so slowly that other people could have noticed. Or the opposite - being so fidgety or restless that you have been moving around a lot more than usual: not at all 9. Thoughts that you would be better off or of hurting yourself in some way: not at all Total score: 0 Depression Screening Interpretation: Negative Depression Screening Done: Yes 23216 - PHQ-9 Billing: Yes Source: Developed by Drs. Bert Odell, Fay Ugalde, Selvin Stafford and colleagues, with an educational jose maria from [employer]. Thrive Questionnaire Date Thrive assessed: 01/28/24 I am a: Patient What is your living situation today?: I have a steady place to live Within the past 12 months, did the food you bought not last and you didn't have the money to get more?: Never true Within the past 12 months, did you worry whether your food would run out before you got money to buy more?: Never true Do you have trouble paying for medicines?: No Do you have trouble getting transportation to medical appointments?: No Do you have trouble paying your heating and electricity bill?: No Do you have trouble taking care of your child, family member or friend?: No Are you currently unemployed and looking for a job?: Yes Are you interested in more education?: Yes Please select the resources that you would like help with: Job search/training and Education Currently or been in a relationship where the following occur: No concerns reported THRIVE Score: 0 AUDIT C Alcohol Use Questionnaire (AUDIT-C) 1. How often do you have a drink containing alcohol?: 2-4 times a month 2. How many drinks containing alcohol do you have on a typical day when you are drinking?: 1 or 2 3. How often do you have six or more drinks on one occasion?: Never Total Score: 2 Score Reviewed/Action Taken: Yes FINESSE-7 AMB Questionnaire FINESSE-7 Date FINESSE - 7 assessed: 01/28/24 Feeling nervous, anxious, or on edge: 0 = Not at all Not being able to stop or control worryin = Several days Worrying too much about different things: 1 = Several days Trouble relaxin = Several days Being so restless that it is hard to sit still: 1 = Several days Becoming easily annoyed or irritable: 0 = Not at all Feeling afraid as if something awful might happen: 1 = Several days Total FINESSE-7 score (0-4 normal; 5-9 mild; 10-14 moderate; 15-21 severe): 5 Source: Developed by Drs. Bert Odell, Fay Ugalde, Selvin Stafford and colleagues, with an educational jose maria from [employer]. FINESSE-7 Assessment Billing FINESSE-7 Assessment Tool: FINESSE-7 Assessment 73034 ACT Questionnaire In the past 4 weeks, how much of the time did your asthma keep you from getting as much done at work, school or at home?: None of the time During the past 4 weeks, how often have you had shortness of breath?: Not at all During the past 4 weeks, how often did your asthma symptoms wake you up at night or earlier than usual in the morning?: Not at all During the past 4 weeks, how often have you had to use your rescue inhaler or nebulizer medication?: Not at all How would you rate your asthma control during the past 4 weeks?: Well controlled Score: 24 Review of Systems Const Details: Denies chills, Denies fatigue, Denies fever(s), Denies headache(s) and Denies weakness HEENT Reports poor vision bilaterally, Denies dizziness, Denies headache(s), Reports hearing loss, Denies nasal congestion, Denies sinus pain, Denies sinus pressure and Denies sore throat Card Denies chest pain, Denies lightheadedness, Denies dyspnea and Denies other (palpitations) Resp Denies cough, Denies dyspnea and Denies wheezing GI Denies abdominal pain, Denies melena, Denies hematochezia, Denies change in bowel habits, Denies dyspepsia and Denies nausea Denies hematuria and Denies dysuria Musc Denies abnormal gait, Denies myalgias, Denies arthralgias, Denies numbness and Denies tingling Skin/Breast Reports as per HPI Neuro Denies abnormal gait, Denies dizziness, Denies headache(s), Denies memory loss, Denies numbness, Denies Sensory deficit (Neuro), Denies tingling and Denies weakness Psych Denies anxiety, Denies depression and Denies memory loss Endo Denies cold intolerance, Denies fatigue, Denies heat intolerance, Denies polydipsia and Denies polyuria Zaheer/Lymph Denies easy bleeding and Denies easy bruising Aller/Immun Denies wheezing Physical exam (Primary Care) Vital Signs: Last Vital Signs Temp 97.6 F 01/28/24 12:34 Pulse 57 01/28/24 12:34 Resp 16 01/28/24 12:34 BP 140/70 H 01/28/24 12:34 Pulse Ox 97 01/28/24 12:34 Oxygen Delivery Method Room Air 01/28/24 12:34 BMI result Body Mass Index 27.5 Tobacco/Smoking Status: Tobacco use Status Tobacco use date assessed 01/28/24 01/28/24 12:32 Patient Tobacco Use Status Never used Tobacco 01/28/24 12:32 e-Cigarette/Vaping Use Never Used 01/28/24 12:17 PHQ-9: PHQ-9 Score PHQ-9: Total score 0 01/28/24 15:09 Depression Screening Interpretation: Negative Thrive Assessment: Date of Thrive Assessment Date Thrive assessed 01/28/24 01/28/24 12:40 Currently or been in a relationship where the following occur: No concerns reported Const Other: General: no acute distress, well developed, alert and awake Nutritional Appearance: well nourished Orientation/consciousness: patient oriented x3 HENMT Head: Yes normocephalic and Yes atraumatic Ears: ROBINSON bilaterally and TM's normal bilaterally General nose exam: Normal external nose present and Normal nares present Mouth: Normal oral and palatal mucosa present and moist mucous membranes Teeth and gingiva: dentition normal Throat: Yes oropharynx normal Eyes Pupils: Equal, round and reactive pupils present and Pupil accommodation reflex normal EOM: EOMs intact bilaterally Neck Neck: Yes normal visual inspection, Yes no lymphadenopathy and Yes trachea midline Thyroid: Thyroid normal Carotids: no bruits Lymphatic: no lymphadenopathy noted Chest Chest palpation & inspection: normal inspection of the chest Resp Effort & Inspection: normal respiratory effort Auscultation: clear to auscultation bilaterally Cardio Rate: regular rate Rhythm: regular rhythm Heart sounds: S1 normal heart sound present, S2 normal heart sound present, no gallops, no murmurs and no rubs Bruits: no abdominal aortic bruits and no carotid bruits GI Palpation (GI): No Abdominal aortic bruit present, Soft to palpation, nontender, No hepatosplenomegaly present and No Rebound tenderness present Auscultation: normal bowel sounds General: Yes no CVA tenderness Back/Spine/Pelvis Back: no CVA tenderness Cervical Spine: cervical ROM normal and No Cervical spine tenderness Thoracic/Lumbar Spine: thoraco-lumbar ROM normal, No pain with thoraco-lumbar ROM, No thoracic spinal tenderness and No lumbar spinal tenderness Skin General: warm and dry. Normal skin color. Normal skin turgor Lesions: no lesions Rashes: no rashes Trauma: no lacerations or abrasions Wounds: no wounds Nails: Fungal infection of the toenails of the right great, 2nd, and 5th toes Neuro General: patient oriented x3, gait normal and CN's II-XI intact bilaterally Cranial nerves: Yes Equal, round and reactive pupils present Cognition (Neuro): normal cognition Gait exam (Neuro): Normal gait present Motor exam (neuro): 5/5 motor strength present throughout Sensory Exam: No Sensory deficit (Neuro) Deep tendon reflexes (DTR's): Right patellar reflex intensity grade: 2+ and Left patellar reflex intensity grade: 2+ Extrem General: Yes normal to inspection, No edema and No calf tenderness Psych Appearance: grossly normal Affect: normal affect Attitude: cooperative Thought process: Normal thought process present Assessment and Plan Assessment & Plan (1) Normal physical exam: Code(s): Z00.00 - Encounter for general adult medical examination without abnormal findings Plan: No significant physical restrictions or limitations noted Continue current treatment regimen Continue to follow-up with specialists as planned Encouraged to get lab work done before her next visit Follow-up in 1 month for hypertension and labs review or sooner with symptoms or concerns Verbalized understanding and agreed with the treatment plan (2) HTN (hypertension): Code(s): I10 - Essential (primary) hypertension Plan: Blood pressure today is 140/70, above goal of less than 140/90 Continue to take lisinopril 20 mg daily Low-sodium diet encouraged Follow-up in 1 month Verbalized understanding and agreed with treatment (3) Onychomycosis: Code(s): B35.1 - Tinea unguium Plan: Fungal infection to the toenails of her right great , 2nd, and 5th toes Will check liver panel and make changes as needed. May start oral toenail fungal treatment or refer to Podiatry Verbalized understanding and agreed with the treatment plan (4) Anxiety and depression: Code(s): F41.9 - Anxiety disorder, unspecified; F32.A - Depression, unspecified Plan: Reports controlled anxiety and depressive symptoms PHQ-9 score is normal. FINESSE-7 score reveals mild anxiety Continue current treatment regimen Continue follow-up with therapist as planned Verbalized understanding and agreed with treatment plan (5) PTSD (post-traumatic stress disorder): Code(s): F43.10 - Post-traumatic stress disorder, unspecified Plan: Request PTSD specialist Message sent to the [facility] to assist with a referral to PTSD specialist (6) Mammogram declined: Code(s): Z53.20 - Procedure and treatment not carried out because of patient's decision for unspecified reasons Plan: Her last mammogram was several years ago: benign calcifications. She declines mammogram (7) Colon cancer screening: Code(s): Z12.11 - Encounter for screening for malignant neoplasm of colon Plan: Her last colonoscopy was about 6 years ago with [facility]: normal Referred to [facility] gastroenterology for a colonoscopy (8) Age related osteoporosis: Code(s): M81.0 - Age-related osteoporosis without current pathological fracture Plan: She has never a bone density scan DEXA scan ordered (9) Cervical cancer screening declined: Code(s): Z53.20 - Procedure and treatment not carried out because of patient's decision for unspecified reasons Plan: She notes that her last pap smear test was several years ago: normal . She declines pap smear test at this time (10) Hearing loss of both ears: Code(s): H91.93 - Unspecified hearing loss, bilateral Plan: History bilateral hearing loss and tinnitus She was followed by ENT and was advised to wear hearing aids Encouraged to purchase and start using hearing aids Follow-up with worsening or new symptoms Verbalized understanding and agreed with the treatment plan (11) Tinnitus of both ears: Code(s): H93.13 - Tinnitus, bilateral Plan: As above (12) Poor vision: Code(s): H54.7 - Unspecified visual loss Plan: History of bilateral cataract surgery Followed by ophthalmology. Advised to follow-up as planned Encouraged to signed consent for her PCP to obtain records Follow-up with symptoms or concerns Verbalized understanding and agreed with the treatment plan (13) Vaccine counseling: Code(s): Z71.85 - Encounter for immunization safety counseling Plan: She has not been vaccinated for shingles or pneumonia Instructed on importance of vaccination and encouraged to get vaccinated for shingles and pneumonia. She may request the vaccines from her local pharmacy Verbalized understanding and agreed with the treatment plan (14) Laboratory tests ordered as part of a complete physical exam (CPE): Code(s): Z00.00 - Encounter for general adult medical examination without abnormal findings Plan: Fasting labs ordered as part of a complete physical exam. Advised to fast for at least 10 hours before getting labs drawn. May drink water Verbalized understanding and agreed with treatment plan. Orders: Orders Complete Blood Count Auto Diff Today Z00.00 - Encounter for general adult medical examination without abnormal findings Comprehensive Crump. Panel Fast Today Z00.00 - Encounter for general adult medical examination without abnormal findings TSH reflex Free T4 Today Z00.00 - Encounter for general adult medical examination without abnormal findings Microalbumin, Random (w Creat) Today Z00.00 - Encounter for general adult medical examination without abnormal findings Lipid Panel Today Z00.00 - Encounter for general adult medical examination without abnormal findings UA CC w/rflx Micro + Cult Today Z00.00 - Encounter for general adult medical examination without abnormal findings XR DEXA axial skeleton Today M81.0 - Age-related osteoporosis without current pathological fracture Referrals Gastroenterology Referral Z12.11 - Encounter for screening for malignant neoplasm of colon Medications: Refilled lisinopril 20 mg PO DAILY 30 tabs 0RF I10 - Essential (primary) hypertension lisinopril 20 mg PO DAILY 30 tabs 3RF I10 - Essential (primary) hypertension Coding Level of Care Code Est Pt Level 5 (71011) Est Pt Prev Care >65y(94973) Diagnoses Normal physical exam Z00.00 HTN (hypertension) I10 Onychomycosis B35.1 Anxiety and depression F41.9; F32.A PTSD (post-traumatic stress disorder) F43.10 Mammogram declined Z53.20 Colon cancer screening Z12.11 Age related osteoporosis M81.0 Cervical cancer screening declined Z53.20 Hearing loss of both ears H91.93 Tinnitus of both ears H93.13 Poor vision H54.7 Vaccine counseling Z71.85 Laboratory tests ordered as part of a complete physical exam (CPE) Z00.00 Additional Codes FINESSE-7 Assessment Billing - FINESSE-7 Assessment Tool: FINESSE-7 Assessment [id number] ([id number])
[2024-01-28 12:34] VITALS: BP 140/70; PULSE 57; RESP 16; TEMP 36.4; O2SAT 97; BMI 27.5
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
== END 2024-01-28 13:21 | disposition home or self-care (01) ==
PROVIDERS: PCP Nurse Practitioner Family; Visit Provider Nurse Practitioner Family
DX: Z00.00 Encounter for general adult medical examination without abnormal findings (principal); I10 Essential (primary) hypertension; B35.1 Tinea unguium; F41.9 Anxiety disorder, unspecified; F32.A Depression, unspecified; F43.10 Post-traumatic stress disorder, unspecified; Z53.20 Procedure and treatment not carried out because of patient's decision for unspecified reasons; Z12.11 Encounter for screening for malignant neoplasm of colon; M81.0 Age-related osteoporosis without current pathological fracture; H91.93 Unspecified hearing loss, bilateral; H93.13 Tinnitus, bilateral; H54.7 Unspecified visual loss
CPT/HCPCS: 99213; 99397

== ENCOUNTER 2024-02-04 13:55 | Outpatient (REF) | payer MEDICARE, SELFPAY ==
[2024-02-04 17:36] LABS: Appearance Urine Cloudy; Color Urine Dark Yellow; Glucose Urine UA Negative (Negative); Leukocyte Esterase Urine Trace (Negative); Nitrite Urine Negative (Negative); Specific Gravity - Urine >= 1.030 (1.005-1.025); UMIC TRIGGER UACC YES; Urine Blood Negative (Negative); Urine Ketones Trace mg/dL (Negative); Urine Protein Negative (Neg-Trace)
[2024-02-04 17:44] LABS: Bacteria Urine 2+ (None Seen); RBC Urine 0-2 /HPF (0-2); UACC Culture Trigger YES
[2024-02-04 18:03] LABS: Creatinine Urine 280.85 mg/dL
== END 2024-02-04 13:56 | disposition home or self-care (01) ==
LOC: HO.WFDLDS 13:55
PROVIDERS: Visit Provider Nurse Practitioner Family
DX: Z00.00 Encounter for general adult medical examination without abnormal findings (principal); R82.90 Unspecified abnormal findings in urine
CPT/HCPCS: 81001; 82043; 82570; 87086

== ENCOUNTER 2024-02-08 10:59 | Outpatient (REF) | payer MEDICARE, SELFPAY ==
[2024-02-08 14:41] LABS: MANUAL DIFF FLAG NO
[2024-02-08 14:53] LABS: Basophils Absolute Auto 0.1 X10*3/uL (0.0-0.2); Basophils Percent Auto 1.2 % (0-2); Eosinophils Absolute Auto 0.3 X10*3/uL (0.0-0.4); Eosinophils Percent Auto 5.3 % (0-4); Hematocrit 45.6 % (37.0-47.0); Hemoglobin 14.6 g/dl (12.0-16.0); Imm Gran Abs Auto 0.03 X10*3/uL (0.00-0.03); Imm Gran Pct Auto 0.5 % (0.0-0.4); Lymphocytes Absolute Auto 1.5 X10*3/uL (1.2-4.9); Lymphocytes Percent Auto 26.1 % (20-40); Mean Corpuscular Hemoglobin 30.7 pg (27.0-33.0); Mean Platelet Volume 9.8 fL (9.4-12.3); Monocytes Absolute Auto 0.4 X10*3/uL (0.1-1.2); Monocytes Percent Auto 6.4 % (2-11); Neutrophils Absolute Auto 3.6 x10*3/uL (2.0-8.3); Neutrophils Percent Auto 60.5 % (45-73); Platelet Count 281 X10*3/uL (160-400); Red Blood Count 4.75 X10*6/uL (4.20-5.50); Red Cell Distribution Width 12.7 % (11.0-16.0); White Blood Count 5.9 X10*3/uL (4.8-10.8)
[2024-02-08 15:29] LABS: Alanine Aminotransferase 11 U/L (0-31); Albumin Level 4.2 g/dL (3.5-5.0); Alkaline Phosphatase 58 U/L (39-117); Anion Gap 8 (12-20); Aspartate Amino Transferase 15 U/L (5-31); Bilirubin Total 0.4 mg/dL (0.0-1.0); Blood Urea Nitrogen 19 mg/dL (9-16); Calcium 9.5 mg/dL (8.4-10.2); Carbon Dioxide 31 mmol/L (22-29); Chloride 106 mmol/L (96-108); Cholesterol 225 mg/dL (<200); Estimated Glomerular Filt Rate > 60; Glucose Fasting 96 mg/dL (60-99); HDL Cholesterol 52 mg/dL (>40); LDL Cholesterol Calculated 154 mg/dL (<100); Potassium 4.3 mmol/L (3.3-5.1); Sodium 141 mmol/L (135-145); TSH reflex Free T4 1.99 uIU/mL (0.32-4.0); Triglycerides 98 mg/dL (<150)
== END 2024-02-08 11:00 | disposition home or self-care (01) ==
LOC: HO.WFDLDS 10:59
PROVIDERS: Visit Provider Nurse Practitioner Family
DX: Z00.00 Encounter for general adult medical examination without abnormal findings (principal)
CPT/HCPCS: 36415; 80053; 80061; 84443; 85025

== ENCOUNTER 2024-03-02 12:40 | Outpatient (AMB) | payer MEDICARE, SELFPAY ==
--- NOTE | 2024-03-02 12:47 | A.OFFPC_ITS ---
Vital Signs 03/02/24 12:51 Height 5 ft 4 in Weight 162 lb BMI 27.8 BP 138/74 Blood Pressure Location Lt brachial Position Sitting Respiration 16 Pulse 61 Pulse Source Pulse Oximeter Temp 98.3 F Temp Source Oral Pulse Oximetry (%) 98 Oxygen Delivery Method Room Air Intake Visit Reasons: blood test f/u fungal infection Intake Note: patient here for blood test results and follow up on fungal infection. 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 Required: No Is last menstrual period known: No Post menopausal: No Patient : No Allergies zoloft Allergy (Mild, Uncoded 01/28/24 12:41) Rash Tobacco use date assessed: 03/02/24 Fall risk assessment: 2 + Falls in past year Last assessed Fall Risk: 03/02/24 Dental Screening Dental Screen Date: 03/02/24 Did you have a dental visit in the last 12 months?: Yes Did you have a dental problem in the last 6 months where you did not have access to dental care?: No Was dental information given to patient?: Patient has dentist HPI HPI Comments History of Present Illness Details 73-year-old female presents for hyperten baldo and review of recent lab results She admits to taking her medications as prescribed without adverse reactions She request medication treatment for fungal infection to the nails of her right foot. She is getting this winter or next spring and will be wearing open toes high heels [facility] Medical History Hx of fracture of humerus (~2018) ETOH abuse Family History (Updated 01/28/24 @ 12:31 by Jennifer Lynn) Mother Diabetes Alcohol abuse FH: mental illness Father Aortic aneurysm Maternal Uncle Alcohol abuse Son Alcohol abuse Daughter Alcohol abuse Sister Substance abuse Social History Household Members: Other Housing: Apartment Alcohol intake: current Patient Tobacco Use Status: Never used Tobacco e-Cigarette/Vaping Use: Never Used Second Hand Smoke Exposure: No service: No Current occupational status: student and disabled 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 Bert Odell, Fay Ugalde, Selvin Stafford and colleagues, with an educational jose maria from [employer] Review of Systems Const Details: Const Denies chills, Denies fatigue, Denies fever(s), Denies headache(s) and Denies weakness ENT Denies dizziness and Denies headache(s) Card Denies chest pain, Denies lightheadedness, Denies dyspnea and Denies other (Palpitations) Resp Denies cough, Denies dyspnea, Denies wheezing and Denies other ( shortness of breath) GI Denies abdominal pain, Denies melena, Denies hematochezia, Denies change in bowel habits, Denies dyspepsia and Denies nausea Denies hematuria and Denies dysuria Musc Denies abnormal gait, Denies myalgias, Denies arthralgias, Denies numbness and Denies tingling Skin/Breast Denies rash, Denies unusual bruising and Denies wounds Neuro Denies abnormal gait, Denies dizziness, Denies headache(s), Denies memory loss, Denies numbness, Denies Sensory deficit (Neuro), Denies tingling and Denies weakness Psych Denies anxiety, Denies depression, Denies memory loss Endo Denies cold intolerance, Denies fatigue, Denies heat intolerance, Denies polydipsia and Denies polyuria Aller/Immun Denies wheezing Physical exam (Primary Care) Vital Signs: Last Vital Signs Temp 98.3 F 03/02/24 12:51 Pulse 61 03/02/24 12:51 Resp 16 03/02/24 12:51 BP 138/74 03/02/24 12:51 Pulse Ox 98 03/02/24 12:51 Oxygen Delivery Method Room Air 03/02/24 12:51 BMI result Body Mass Index 27.8 Tobacco/Smoking Status: Tobacco use Status Tobacco use date assessed 03/02/24 03/02/24 12:54 Patient Tobacco Use Status Never used Tobacco 03/02/24 12:49 e-Cigarette/Vaping Use Never Used 03/02/24 12:49 Thrive Assessment: Date of Thrive Assessment Date Thrive assessed 01/28/24 03/02/24 12:49 Const Other: General: no acute distress and well developed Nutritional Appearance: well nourished Orientation/consciousness: patient oriented x3 HENMT Head: Yes normocephalic and Yes atraumatic Eyes General: appearance normal, both eyes and all related structures Pupils: Equal, round and reactive pupils present EOM: EOMs intact bilaterally Resp Effort & Inspection: normal respiratory effort Auscultation: clear to auscultation bilaterally Cardio Rate: regular rate Rhythm: regular rhythm Heart sounds: S1 normal heart sound present, S2 normal heart sound present, no gallops, no murmurs and no rubs GI Palpation (GI): No Abdominal aortic bruit present, Soft to palpation, nontender, No hepatosplenomegaly present and No Rebound tenderness present Auscultation: normal bowel sounds General: Yes no CVA tenderness Back/Spine/Pelvis Back: no CVA tenderness Cervical Spine: cervical ROM normal and No Cervical spine tenderness Thoracic/Lumbar Spine: thoraco-lumbar ROM normal, No pain with thoraco-lumbar ROM, No thoracic spinal tenderness and No lumbar spinal tenderness Extrem General: Yes normal to inspection, No edema and No calf tenderness Skin General: warm and dry. Normal skin color. Normal skin turgor Lesions: no lesions Rashes: no rashes Trauma: no lacerations or abrasions Wounds: no wounds Nails: Moderate thickened/hardened brown nails of both feet Neuro General: patient oriented x3, gait normal and no focal neuro deficit Cranial nerves: Yes Equal, round and reactive pupils present Cognition (Neuro): normal cognition Gait exam (Neuro): Normal gait present Sensory Exam: No Sensory deficit (Neuro) Psych Appearance: grossly normal Affect: normal affect Attitude: cooperative Thought process: Normal thought process present Assessment and Plan Assessment & Plan (1) HTN (hypertension): Code(s): I10 - Essential (primary) hypertension Plan: Blood pressure is 138/74, within goal of less than 140/90 Continue current treatment regimen Low-sodium diet encouraged Will continue to monitor Verbalized understanding and agreed with the plan (2) Hypercholesterolemia: Code(s): E78.00 - Pure hypercholesterolemia, unspecified Plan: Recent lab results with unremarkable findings except for elevated total cholesterol and LDL, 225 and 154 respectively Advised to limit foods high in saturated fat and avoid foods high in trans fat Routine exercise encouraged Will recheck cholesterol levels in 3 months Verbalized understanding and agreed with the treatment plan (3) Onychomycosis: Code(s): B35.1 - Tinea unguium Plan: Moderate thickened/hardened brown nails of both feet Terbinafine 250 mg daily ordered. Advised to take as prescribed. Instructed on the risks, benefits, and potential adverse reactions of the medications Advised to get fasting blood work done 2-3 days before next visit Follow-up in 6 weeks Verbalized understanding and agreed with the plan Medications: New terbinafine HCl 250 mg PO DAILY 6 weeks 42 tabs 0RF Coding Level of Care Code Est Pt Level 4 (11492) Diagnoses HTN (hypertension) I10 Hypercholesterolemia E78.00 Onychomycosis B35.1
[2024-03-02 12:51] VITALS: BP 138/74; PULSE 61; RESP 16; TEMP 36.8; O2SAT 98; BMI 27.8
== END 2024-03-02 13:25 | disposition home or self-care (01) ==
PROVIDERS: PCP Nurse Practitioner Family; Visit Provider Nurse Practitioner Family
DX: I10 Essential (primary) hypertension (principal); E78.00 Pure hypercholesterolemia, unspecified; B35.1 Tinea unguium

== ENCOUNTER → 2024-03-02 12:40 | Outpatient (BNVA) | payer MEDICARE, SELFPAY | PROVIDERS: PCP Nurse Practitioner Family; Visit Provider Nurse Practitioner Family | DX: I10 Essential (primary) hypertension (principal); E78.00 Pure hypercholesterolemia, unspecified; B35.1 Tinea unguium | CPT/HCPCS: 99212 ==

== ENCOUNTER 2024-04-28 12:44 | Outpatient (REF) | payer MEDICARE, SELFPAY ==
[2024-04-28 14:49] LABS: Alanine Aminotransferase 18 U/L (0-31); Albumin Level 4.3 g/dL (3.5-5.0); Alkaline Phosphatase 68 U/L (39-117); Aspartate Amino Transferase 21 U/L (5-31); Bilirubin Direct 0.1 mg/dL (0.0-0.5); Bilirubin Total 0.5 mg/dL (0.0-1.0); Total Protein 7.3 g/dL (6.5-8.0)
== END 2024-04-28 12:45 | disposition home or self-care (01) ==
LOC: HO.WFDLDS 12:44
PROVIDERS: Visit Provider Nurse Practitioner Family
DX: B35.1 Tinea unguium (principal)
CPT/HCPCS: 36415; 80076

== ENCOUNTER 2024-05-09 11:54 | Outpatient (AMB) | payer MEDICARE, SELFPAY ==
--- NOTE | 2024-05-09 12:11 | MHC.PC.OV ---
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 Required: No Is last menstrual period known: No Post menopausal: No Patient : No Allergies zoloft Allergy (Mild, Uncoded 05/09/24 12:37) Rash Medication List - Last Reconciled 05/09/24 by Luigi Maria CNP blood pressure monitor As directed buspirone 30 mg PO BID ibuprofen 800 mg PO Q8H PRN 1 month lisinopril 20 mg PO DAILY mirtazapine 15 mg PO BEDTIME terbinafine HCl 250 mg PO DAILY 6 weeks venlafaxine ER 150 mg PO BID Tobacco use date assessed: 05/09/24 Fall risk assessment: No Falls in past year Last assessed Fall Risk: 05/09/24 Dental Screening Dental Screen Date: 05/09/24 Did you have a dental visit in the last 12 months?: Yes Did you have a dental problem in the last 6 months where you did not have access to dental care?: No Was dental information given to patient?: Patient has dentist HPI HPI Comments History of Present Illness Details The patient is a 74-year-old female presenting with symptoms of cough, headache, low-grade fever, and congestion. Approximately two weeks ago, she noticed wheezing and experienced an intense headache. She subsequently developed sneezing and a runny nose, along with a low-grade fever over the past week. Three days prior to the visit, her symptoms worsened significantly, characterized by severe congestion and dizziness, prompting concern about the potential for fainting. She reported a worsening of cough over the last three days, expectorating phlegm of a brownish-beige color. Associated symptoms include severe headaches, ringing in her ears, body aches, chills experienced on Wednesday, and persistent fatigue. She self-administered oywq-[id number]-[id number] medications, including Robitussin (Guaifenesin) and Ibuprofen, for symptom management. She did not recall any viral testing for COVID-19, influenza, or RSV. The patient did not monitor her temperature at home but reported significant chills in recent days. She sought medical care due to the severity and duration of her symptoms, along with the concerns over possible illness progression. Social History - No active sick contacts mentioned. - Lives with a significant other, who is reportedly in good health. - Medication use includes Robitussin and Ibuprofen for symptomatic relief. 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 Bert Odell, Fay Ugalde, Selvin Stafford and colleagues, with an educational jose maria from [employer]. Review of Systems Const Details: Const Reports chills, Reports fatigue, Denies fever(s), Reports headache(s) and Denies weakness ENT Reports as per HPI Card Denies chest pain, Denies lightheadedness, Denies dyspnea and Denies other (Palpitations) Resp Reports cough, Denies dyspnea, Reports wheezing and Denies other ( shortness of breath) GI Denies abdominal pain, Denies melena, Denies hematochezia, Denies change in bowel habits, Denies dyspepsia and Denies nausea Denies hematuria and Denies dysuria Musc Denies abnormal gait, Denies myalgias, Denies arthralgias, Denies numbness and Denies tingling Skin/Breast Denies rash, Denies unusual bruising and Denies wounds Neuro Denies abnormal gait, Reports dizziness, Reports headache(s), Denies memory loss, Denies numbness, Denies Sensory deficit (Neuro), Denies tingling and Denies weakness Psych Denies anxiety, Denies depression, Denies memory loss Endo Denies cold intolerance, Reports fatigue, Denies heat intolerance, Denies polydipsia and Denies polyuria Aller/Immun Denies wheezing Physical exam (Primary Care) Vital Signs: Last Vital Signs Temp 97.7 F 05/09/24 12:18 Pulse 70 05/09/24 12:18 Resp 16 05/09/24 12:18 BP 202/88 H 05/09/24 12:18 Pulse Ox 99 05/09/24 12:18 Oxygen Delivery Method Room Air 05/09/24 12:18 BMI result Body Mass Index 27.8 Tobacco/Smoking Status: Tobacco use Status Tobacco use date assessed 05/09/24 05/09/24 12:21 Patient Tobacco Use Status Never used Tobacco 05/09/24 12:13 e-Cigarette/Vaping Use Never Used 05/09/24 12:13 Thrive Assessment: Date of Thrive Assessment Date Thrive assessed 01/28/24 05/09/24 12:13 Const Other: General: no acute distress and well developed Nutritional Appearance: well nourished Orientation/consciousness: patient oriented x3 HENMT Head: Yes normocephalic and Yes atraumatic Eyes General: appearance normal, both eyes and all related structures Pupils: Equal, round and reactive pupils present EOM: EOMs intact bilaterally Resp Effort & Inspection: normal respiratory effort Auscultation: clear to auscultation bilaterally Cardio Rate: regular rate Rhythm: regular rhythm Heart sounds: S1 normal heart sound present, S2 normal heart sound present, no gallops, no murmurs and no rubs GI Palpation (GI): No Abdominal aortic bruit present, Soft to palpation, nontender, No hepatosplenomegaly present and No Rebound tenderness present Auscultation: normal bowel sounds General: Yes no CVA tenderness Back/Spine/Pelvis Back: no CVA tenderness Cervical Spine: cervical ROM normal and No Cervical spine tenderness Thoracic/Lumbar Spine: thoraco-lumbar ROM normal, No pain with thoraco-lumbar ROM, No thoracic spinal tenderness and No lumbar spinal tenderness Extrem General: Yes normal to inspection, No edema and No calf tenderness Skin General: warm and dry. Normal skin color. Normal skin turgor Lesions: no lesions Rashes: no rashes Trauma: no lacerations or abrasions Wounds: no wounds Nails: normal Neuro General: patient oriented x3, gait normal and no focal neuro deficit Cranial nerves: Yes Equal, round and reactive pupils present Cognition (Neuro): normal cognition Gait exam (Neuro): Normal gait present Sensory Exam: No Sensory deficit (Neuro) Psych Appearance: grossly normal Affect: normal affect Attitude: cooperative Thought process: Normal thought process present Coding Level of Care Code Est Pt Level 4 (72626) Diagnoses Viral upper respiratory illness J06.9 Acute bronchitis J20.9 HTN (hypertension) I10 Assessment & Plan Assessment & Plan (1) Viral upper respiratory illness: Code(s): J06.9 - Acute upper respiratory infection, unspecified Category: Medical Plan: Likely viral illness though possibly allergies. No exam evidence of bacterial infection Viral illness There is no antibiotic medication for viruses.? They must run their course.? Most average 5-7 days but 7-10 days is not uncommon and up to 14 days is still possible.? A cough is often the last symptom to resolve and this can last for weeks in some cases. Rest Hydrate well -? Drink plenty of fluids.? Especially water. Tylenol or ibuprofen for muscle aches, headache, fever/discomfort Benzonatate as prescribed. Cannot rule out COVID-19/RSV/Flu infection Nasal swab acquired and will be sent to the lab Return for new or worsening symptoms Verbalized understanding and agreed with treatment plan. (2) Acute bronchitis: Code(s): J20.9 - Acute bronchitis, unspecified Category: Medical Plan: Continue symptomatic management with adequate rest and fluid intake. I have prescribed Benzonatate for cough management. An order for a chest x-ray has been placed to assess lung condition further. (3) HTN (hypertension): Code(s): I10 - Essential (primary) hypertension Category: Medical Plan: High blood pressure reading noted, likely influenced by illness severity. Continue current treatment. Scheduled follow-up in one to two weeks to reassess blood pressure once the patient starts feeling better. Plan I discussed with the patient the likely diagnoses, including acute bronchitis and viral upper respiratory infection, given the presentation of symptoms. We reviewed the management plan, which includes symptomatic relief, testing for viral infections, and the necessity of a chest x-ray to provide insight into the respiratory condition. I informed the patient about the importance of rest and fluid intake and advised on monitoring symptoms. I also addressed blood pressure concerns and recommended a follow-up appointment to assess hypertension management after symptom resolution. The patient understood the plan and agreed to the proposed interventions. Orders: Orders Lipid Panel Today E78.00 - Pure hypercholesterolemia, unspecified SARS-CoV2/FLU/RSV Today J06.9 - Acute upper respiratory infection, unspecified XR chest 2V Today J20.9 - Acute bronchitis, unspecified Medications: New benzonatate 100 mg PO BID PRN 14 caps 0RF cough Patient Instructions: - Rest and increase fluid intake to help alleviate symptoms. - Continue taking Ibuprofen as needed for fever and aches. - Take Benzonatate as prescribed twice daily for cough. - Proceed to [place] to get a chest x-ray done today. - Monitor symptoms and return for evaluation if they worsen or new symptoms develop. - Schedule a follow-up appointment in one to two weeks for blood pressure assessment. Patient was informed and verbally consented to the use of an ambient scribe for clinic note documentation during this visit.
[2024-05-09 12:18] VITALS: BP 202/88; PULSE 70; RESP 16; TEMP 36.5; O2SAT 99; BMI 27.8
[2024-05-09 12:36] VITALS: BP 160/100
== END 2024-05-09 12:45 | disposition home or self-care (01) ==
PROVIDERS: PCP Nurse Practitioner Family; Visit Provider Nurse Practitioner Family
DX: J06.9 Acute upper respiratory infection, unspecified (principal); J20.9 Acute bronchitis, unspecified; I10 Essential (primary) hypertension

== ENCOUNTER 2024-05-09 11:54 | Outpatient (REF) | payer MEDICARE, SELFPAY ==
[2024-05-09 15:22] LABS: Influenza A PCR NEGATIVE (Negative); Influenza B PCR NEGATIVE (Negative); Resp Syncy Virus RNA Qual PCR NEGATIVE (Negative); SARS COV2 PCR INHOUSE NEGATIVE (Negative)
== END 2024-05-09 11:55 | disposition home or self-care (01) ==
LOC: HO.LAB 11:54
PROVIDERS: PCP Nurse Practitioner Family; Visit Provider Nurse Practitioner Family
DX: J06.9 Acute upper respiratory infection, unspecified (principal); J20.9 Acute bronchitis, unspecified; I10 Essential (primary) hypertension
CPT/HCPCS: 0241U; 99212

== ENCOUNTER 2024-05-11 09:21 | Outpatient (REF) | payer MEDICARE, SELFPAY ==
--- NOTE | ~2024-05-11 | XR_ITS ---
EXAMINATION: XR CHEST CLINICAL INFORMATION: Bronchitis. COMPARISON: Most recent chest radiograph dated 09/08/2021. TECHNIQUE: 2 views of the chest were obtained. FINDINGS: Chronic interstitial prominence without focal airspace consolidation. No pleural effusion or pneumothorax. Stable cardiomediastinal silhouette. Redemonstration of a right humeral fracture with ORIF, unchanged. XR/XR chest 2V IMPRESSION: No acute cardiopulmonary findings. Electronically signed by: Dionisio Sparks MD 05/11/2024 02:59 PM EST
== END 2024-05-11 09:22 | disposition home or self-care (01) ==
LOC: HO.XRAY 09:21
PROVIDERS: PCP Nurse Practitioner Family; Visit Provider Nurse Practitioner Family
DX: J20.9 Acute bronchitis, unspecified (principal)
CPT/HCPCS: 71046

== ENCOUNTER 2024-06-14 13:47 | Outpatient (AMB) | payer MEDICARE, SELFPAY ==
[2024-06-14 13:59] VITALS: BMI 27.8
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
== END 2024-06-14 14:43 | disposition home or self-care (01) ==
PROVIDERS: PCP Internal Medicine; Visit Provider Orthopaedic Surgery
DX: M67.441 Ganglion, right hand (principal); M79.642 Pain in left hand; F10.10 Alcohol abuse, uncomplicated
CPT/HCPCS: 99214

== ENCOUNTER → 2024-06-14 13:47 | Outpatient (BNVA) | payer MEDICARE, SELFPAY | PROVIDERS: PCP Internal Medicine; Visit Provider Orthopaedic Surgery | DX: M67.40 Ganglion, unspecified site (principal); M79.642 Pain in left hand; M72.0 Palmar fascial fibromatosis [Dupuytren]; F10.10 Alcohol abuse, uncomplicated | CPT/HCPCS: 99212 ==

== ENCOUNTER 2024-07-04 10:58 | Outpatient (AMB) | payer MEDICARE, SELFPAY ==
--- NOTE | 2024-07-04 11:19 | MHC.PC.OV ---
Vital Signs 07/04/24 11:26 Height 5 ft 4 in Weight 163 lb 6 oz BMI 28.0 BP 136/74 Blood Pressure Location Rt brachial Position Sitting Pulse 69 Pulse Source Pulse Oximeter Pulse Oximetry (%) 98 Oxygen Delivery Method Room Air Intake Visit Reasons: JINNY FROM MIMI/MEDICATION UPDATE Intake Note: New patient visit Air Compressor Engineer Required: No Allergies zoloft Allergy (Mild, Uncoded 07/04/24 11:19) Rash Tobacco use date assessed: 07/04/24 Dental Screening Dental Screen Date: 05/09/24 Did you have a dental visit in the last 12 months?: Yes Did you have a dental problem in the last 6 months where you did not have access to dental care?: No Was dental information given to patient?: Patient has dentist HPI HPI Comments History of Present Illness Details The patient is a 74 year old female with a past medical history of hypertension, mood disorder, PTSD, h/o etoh abuse, OA presenting to [facility] care. Internal transfer. CV: On lisinopril 20mg daily. Needs refill. Denies chest pain, shortness of breath, LE edema. No vision changes BH: On effexor 150mg twice daily, mirtazipine, buspar. Follows with [facility] Looking to find BH with PTSD specialization/treatment OA: sees hand and ortho. Has seen dermatology in the past, had AKs frozen. Would like to follow up for this. Colonoscopy-2011. recently saw for consult. Says this is being scheduled She is due for mammogram which is ordered today ROS CONSTITUTIONAL: Denies weight loss, fever and chills. HEENT: Denies changes in vision and hearing. RESPIRATORY: Denies SOB and cough. CV: Denies palpitations and CP GI: Denies abdominal pain, nausea, vomiting and diarrhea. : Denies dysuria and urinary frequency. MSK: Denies new myalgia and joint pain. SKIN: Denies rash and pruritus. NEUROLOGICAL: Denies headache PSYCHIATRIC: Denies recent changes in mood. PHYSICAL EXAM: GENERAL: Alert and oriented x 3. NAD EYES: EOMI. Anicteric. HENT: Moist mucous membranes. No scleral icterus. No cervical lymphadenopathy. LUNGS: Clear to auscultation bilaterally. CARDIOVASCULAR: Regular rate and rhythm. No murmur. No JVD. ABDOMEN: Soft, non-tender +bs EXTREMITIES: No edema. Non-tender. SKIN: No rashes or lesions. Warm. NEUROLOGIC: No focal neurological deficits. CN II-XII grossly intact PSYCHIATRIC: Cooperative. Appropriate mood and affect [facility] Medical History Hx of fracture of humerus (~2019) ETOH abuse Family History Mother Diabetes Alcohol abuse FH: mental illness Father Aortic aneurysm Maternal Uncle Alcohol abuse Son Alcohol abuse Daughter Alcohol abuse Sister Substance abuse Social History Household Members: Other Housing: Apartment Alcohol intake: current Patient Tobacco Use Status: Never used Tobacco e-Cigarette/Vaping Use: Never Used Second Hand Smoke Exposure: Yes (mother was a smoker, was to someone 16 years that smoked.) service: No Current occupational status: unemployed and disabled 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 Bert Odell, Fay Ugalde, Selvin Stafford and colleagues, with an educational jose maria from [employer]. Physical exam (Primary Care) Vital Signs: Last Vital Signs Pulse 69 07/04/24 11:26 BP 136/74 07/04/24 11:26 Pulse Ox 98 07/04/24 11:26 Oxygen Delivery Method Room Air 07/04/24 11:26 BMI result Body Mass Index 28.0 Tobacco/Smoking Status: Tobacco use Status Tobacco use date assessed 07/04/24 07/04/24 11:20 Patient Tobacco Use Status Never used Tobacco 07/04/24 11:20 e-Cigarette/Vaping Use Never Used 07/04/24 11:20 Thrive Assessment: Date of Thrive Assessment Date Thrive assessed 01/28/24 07/04/24 11:20 Coding Level of Care Code Est Pt Level 4 (31035) Diagnoses PTSD (post-traumatic stress disorder) F43.10 Primary hypertension I10 Hypertension type: primary hypertension Actinic keratoses L57.0 Assessment & Plan Assessment & Plan (1) PTSD (post-traumatic stress disorder): Code(s): F43.10 - Post-traumatic stress disorder, unspecified Category: Medical Plan: referral to placed (2) HTN (hypertension): Code(s): I10 - Essential (primary) hypertension Category: Medical Qualifiers: Hypertension type: primary hypertension Qualified Code(s): I10 - Essential (primary) hypertension Plan: controlled on current medications. May benefit for beta kelin for intermittent explosive disorder (3) Actinic keratoses: Code(s): L57.0 - Actinic keratosis Category: Medical Plan: referral to dermatology placed Orders: Orders MM diagnostic mammo BI 07/04/24 Z12.39 - Encounter for other screening for malignant neoplasm of breast Referrals Behavioral Health Referral F43.10 - Post-traumatic stress disorder, unspecified Dermatology Referral L57.0 - Actinic keratosis Medications: Refilled lisinopril 20 mg PO DAILY 30 tabs 3RF I10 - Essential (primary) hypertension
[2024-07-04 11:26] VITALS: BP 136/74; PULSE 69; O2SAT 98; BMI 28.0
--- OUTSIDE RECORDS SUMMARY | 2024-07-04 12:10 | XMS_ITS | Encounter Summary ---
Author Organization [employer] Address [address] [place] [address] [place] [address] Care Team Providers Care Supervisor Covering And Lining Name Role Phone Unavailable Primary Care Provider Unavailabl e Reason for Visit * Reason Comments [place] Delivery Encounter Details Date Type Department Care Team ([facility] st Contact Info) Description 06/29/2024 10:00 AM EST Office Visit [facility] [address] [place] [address] Arya Franks DMD [address] [place] [address] Social History Tobacco Use Types Packs/Day Years Used Date Smoking Tobacco: Never Smokeless Tobacco: Never Alcohol Use Standard Drinks/Week Comments Yes 0 (1 standard drink = 0.6 oz pur e alcohol) Comments Unknown Sex and Gender Information Value Date Recorded Sex Assigned at Female 04/06/2022 10:40 AM EDT Legal Sex Female 10:40 AM EDT Gender Identity Female 04/06/2022 10:40 AM EDT Sexual Orientation Straight 10/28/2022 1: 38 PM EDT documented as of this encounter Progress Notes * Arya Franks DMD - 06/29/2024 10:00 AM EST Tooth#8: temp crown removed, crown #8 fit fine and confirmed with X-ray, occlusion checked. Pt likes the esthetic and feels fine. Gluma placed, cement crown #8 with Rely-X, excess cement is being removed. NV: more fillings Mango documented in this encounter Plan of Treatment Upcoming Encounters Date Type Department Care Team (Late st Contact Info) Description 09/28/2024 2:00 PM EDT Office Visit [facility] [address] [place] [phone] Janae Levine [address] [place] [address] documented as of this encounter Procedures Procedure Name Priority Date/Time Associated Diagnosis Comments 8 CROWN - PORCELAIN/CERAMIC Routine 06/29/2024 10:00 AM EST ADJUNCTIVE GENERAL SERVICES - PROFESSIONAL VISITS - CASE PRESENTATION, SUBSEQUENT TO DETAILED AND EXTENSIVE TREATMENT PLANNING Routine 06/29/2024 10:00 AM EST documented in this encounter Visit Diagnoses Not on filedocumented in this encounter
--- OUTSIDE RECORDS SUMMARY | 2024-07-04 12:12 | XMS_ITS | Encounter Summary ---
Author Organization [employer] Address [address] [place] [address] Care Team Providers Care Commercial Sales Manager Name Role Phone Unavailable Primary Care Provider Unavailabl e Encounter Details Date Type Department Care Team (Latest Contact Info) Description 11/20/2021 Abstract [facility] CONVERSIONS Dental, Provider, DDS Social History Tobacco Use Types Packs/Day Years Used Date Smoking Tobacco: Never Assessed Comments Unknown Sex and Gender Information Value Date Recorded Sex Assigned at Female 04/06/2022 10:40 AM EDT Legal Sex Female 10:40 AM EDT Gender Identity Female 04/06/2022 10:40 AM EDT Sexual Orientation Straight 10/28/2022 1: 38 PM EDT documented as of this encounter Plan of Treatment Upcoming Encounters Date Type Department Care Team (Late st Contact Info) Description 09/28/2024 2:00 PM EDT Office Visit [facility] [address] [place] [address] [phone] Janae Levine [address] [place], [place] [phone] documented as of this encounter Visit Diagnoses Not on filedocumented in this encounter
--- OUTSIDE RECORDS SUMMARY | 2024-07-04 12:12 | XMS_ITS | Clinical Summary ---
Author Organization [employer] Address [address] [place] [address] 7 [place] [address] Care Team Providers Care Maintenance Worker Swimming Pool Name Role Phone Unavailable Primary Care Provider Unavailabl e Allergies Active Allergy Reactions Criticality Noted Date Comments Chamomile 06/03/2021 Clindamycin Rash Medium 02/16/2017 Codeine Nausea Only Medium 02/16/2017 vomiting vomiting vomiting vomiting Dust Mite Extract 06/03/2021 Molds & Smuts 06/03/2021 Oxycodone Nausea Only Medium 02/16/2017 vomiting vomiting vomiting vomiting Sertraline Rash Medium 02/16/2017 Medications lisinopril 20 MG tablet Take 20 mg by mouth in the morning. Active venlafaxine XR (Effexor XR) 75 MG 24 hr capsule Take 75 mg by mouth in the morning. 07/23/2021 Active mirtazapine (Remeron) 15 MG tablet 07/26/2023 Active cloNIDine (Catapres) 0.1 MG tablet 07/22/2023 Active busPIRone (Buspar) 30 MG tablet Take 30 mg by mouth 2 times daily. 03/12/2024 Active Active Problems Problem Noted Date Diagnosed Date Fracture of tooth enamel and dentin 07/28/2023 History of depression 07/23/2021 Insomnia disorder, with non- sleep disorder mental comorbidity, persistent 07/23/2021 Incontinence of feces with fecal urgency 022 Overview (08/24/2023): Last Assessment & Plan: Chronic problem s/p rectal prolapse and surgery. - Provided with some disposable underwear in case of emergency - F/u with PCP for connection to GI Routine health maintenance 07/08/2021 Overview (08/24/2023): Last Assessment & Plan: Will check other routine labs along with CMP for htn since pt has not been recently connected to care. 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 Reports increase stress being in the [facility]. Coping skill: walking (exercise). Wants Gabapentin to take at night. Plan: Referral to psychological counseling. Referral to psychiatry. Future Appointments Provider Department Center 07/15/2021 8:45 AM SA158 PSI-W LAB ONLY [facility] @ [facility] 07/17/2021 4:00 PM ISRRAEL Montero [employer] [facility] @ [facility] Appt Notes: f/u lab results 07/23/2021 3:30 PM Jaycee Martinez MD [facility] @ [facility] 07/31/2021 3:00 PM Malini Hernandes LCSW [facility] [employer] [facility] @ [facility] Nonintractable headache 06/25/2021 Overview (08/24/2023): Last Assessment & Plan: Likely secondary to very high BP. Counseled pt on risks of not treating high BP. - Rx'd lisinopril to lower BP - RN provided ibuprofen from clinic before appt to treat h/a Sleep difficulties 06/25/2021 Overview (08/24/2023): Last Assessment & Plan: Deferred further evaluation of sleep issues in hopes of expediting pick-up of lisinopril to treat hypertensive urgency. - encouraged pt to connect with team for assistance with managing anxiety and trouble sleeping Acute pain of left shoulder 06/03/2021 Overview (08/24/2023): Last Assessment & Plan: C/O left shoulder pain 9.5/10. Full AROM, pain does not increase with mobility. VSS and afebrile. Discuss positions and stretching exercises that will alleviate pain. She was agreeable to the application of a muscle rub. Ibuprofen and muscle rub provided with instructions.Follow up with PCP and orthopedic doctor. RTC with any concerning symptoms. She stated an understanding of the instructions. Essential hypertension 06/03/2021 Overview (08/24/2023): Last Assessment & Plan: BP Readings from Last 3 Encounters: 07/14/21 139/66 07/08/21 156/80 07/01/21 98/54 Hypertension is improving with treatment. Plan: Continue current treatment regimen, Dietary sodium restriction, Regular aerobic exercise and Ambulatory blood pressure monitoring. Red flag s/sx leading to myocardial infarction, stroke and even reviewed w/ voiced understanding. Pt agrees to seek ED evaluation should red flag sx arise. Return to clinic as needed. Sheltered homelessness 06/03/2021 Overview (08/24/2023): Last Assessment & Plan: The patient is currently staying at [facility]pc. Encounters Date Type Department Care Team Description 06/29/2024 10:00 AM EST Office Visit [facility] [address] [place] [phone] Arya Franks DMD 06/15/2024 9:00 AM EST Office Visit [facility] [address] [place] [phone] Arya Franks DMD 05/23/[address] [facility] [address] [place] [phone] Arya Franks DMD appt 05/22/[address] [facility] [address] [place] [phone] Silvana Varma BDS 04/18/2024 2:30 PM EST Office Visit [facility] [address] [place] [phone] Arya Franks DMD from Last 3 Months Immunizations Name Administration Dates Next Due Influenza injectable quadrivalent preservative f ree 08/05/2021 Influenza, High Dose Seasonal, Preservative Free 03/21/2017 TD (adult), 2 Lf tetanus tox oid, preservative free, adsorbed 03/10/2017 Social History Tobacco Use Types Packs/Day Years Used Date Smoking Tobacco: Never Smokeless Tobacco: Never Tobacco Cessation:Counseling Given: Not Answered Alcohol Use Standard Drinks/Week Comments Yes 0 (1 standard drink = 0.6 oz pur e alcohol) Comments Unknown Sex and Gender Information Value Date Recorded Sex Assigned at Female 04/06/2022 10:40 AM EDT Legal Sex Female 10:40 AM EDT Gender Identity Female 04/06/2022 10:40 AM EDT Sexual Orientation Straight 10/28/2022 1 :38 PM EDT Last Filed Vital Signs Vital Sign Reading Time Taken Comments Blood Pressure 130/70 06/15/2024 9:13 AM EST Pulse 73 03/28/2024 1:10 PM EDT Temperature - - Respiratory Rate - - Oxygen Saturation - - Inhaled Oxygen Concentration - - Weight - - Height - - Body Mass Index - - Plan of Treatment Upcoming Encounters Date Type Department Care Team (Late st Contact Info) Description 09/28/2024 2:00 PM EDT Office Visit [facility] [address] [place] [phone] Janae Levine [address] [place] [phone] Health Maintenance Due Date Last Done Comments CT Colonography 1949 Colonoscopy 1949 Colorectal Cancer Screening 1949 Depression Screening 1949 FIT DNA/Cologuard 1949 FIT 1949 FOBT 1949 Lipid Panel 1949 SDOH Screening 1949 Sigmoidoscopy 1949 Alcohol/Substance Use Screening 1961 Hepatitis C Screening 1967 Zoster Vaccines (1 of 2) 1999 DTaP/Tdap/Td Vaccines (1 - Tdap) 03/11/2017 03/10/2017 Dental Oral Exam 05/22/2022 11/19/2021 Pneumococcal Vaccine: 65+ Years (2 of 2 - PCV) 08/20/2022 08/20/2021 COVID-19 Vaccine (3 - 2023-2 5 season) 2024 10/09/2021, 06/24/2021 Influenza Vaccine (#1) 2024 , 03/21/2017 RSV Patients and Patients Aged 60 years or older (1 - 1-dose 75+ series) 2024 Dental Prophylaxis 09/27/2024 03/28/2024, 11/20/2021 Dental X-Ray: Bitewings 03/29/2025 03/28/2024 Tobacco Screening 06/29/2025 06/29/2024 Dental X-Ray: Full Mouth 03/29/2027 03/28/2024 HIB Vaccines Aged Out No longer eligi ble based on patient's age to complete this topic HPV Vaccines Aged Out No longer eligi ble based on patient's age to complete this topic Hepatitis A Vaccines Aged Out No long er eligible based on patient's age to complete this topic Hepatitis B Vaccines Aged Out No long er eligible based on patient's age to complete this topic IPV Vaccines Aged Out No longer eligi ble based on patient's age to complete this topic Meningococcal Vaccine Aged Out No lachelle pablo eligible based on patient's age to complete this topic RSV under 20 months Aged Out No longe r eligible based on patient's age to complete this topic Rotavirus Vaccines Aged Out No longer eligible based on patient's age to complete this topic Procedures Procedure Name Priority Date/Time Associated Diagnosis Comments ADJUNCTIVE GENERAL SERVICES - PROFESSIONAL VISITS - CASE PRESENTATION, SUBSEQUENT TO DETAILED AND EXTENSIVE TREATMENT PLANNING Routine 06/29/2024 10:00 AM EST 8 CROWN - PORCELAIN/CERAMIC Routine 06/29/2024 10:00 AM EST CROWN PREP Routine 06/15/2024 9:00 AM EST ADJUNCTIVE GENERAL SERVICES - PROFESSIONAL VISITS - CASE PRESENTATION, SUBSEQUENT TO DETAILED AND EXTENSIVE TREATMENT PLANNING Routine 04/18/2024 2:30 PM EST 27 I RESTORATIVE - RESIN-BASED COMPOSITE RESTORATIONS - DIRECT - RESIN-BASED COMPOSITE - ONE SURFACE, ANTERIOR Routine 04/18/2024 2:30 PM EST 26 I RESTORATIVE - RESIN-BASED COMPOSITE RESTORATIONS - DIRECT - RESIN-BASED COMPOSITE - ONE SURFACE, ANTERIOR Routine 04/18/2024 2:30 PM EST 25 I RESTORATIVE - RESIN-BASED COMPOSITE RESTORATIONS - DIRECT - RESIN-BASED COMPOSITE - ONE SURFACE, ANTERIOR Routine 04/18/2024 2:30 PM EST 24 I RESTORATIVE - RESIN-BASED COMPOSITE RESTORATIONS - DIRECT - RESIN-BASED COMPOSITE - ONE SURFACE, ANTERIOR Routine 04/18/2024 2:30 PM EST 23 I RESTORATIVE - RESIN-BASED COMPOSITE RESTORATIONS - DIRECT - RESIN-BASED COMPOSITE - ONE SURFACE, ANTERIOR Routine 04/18/2024 2:30 PM EST 22 I RESTORATIVE - RESIN-BASED COMPOSITE RESTORATIONS - DIRECT - RESIN-BASED COMPOSITE - ONE SURFACE, ANTERIOR Routine 04/18/2024 2:30 PM EST 21 RESTORATIVE - RESIN-BASED COMPOSITE RESTORATIONS - DIRECT - RESIN-BASED COMPOSITE - THREE SURFACES, POSTERIOR Routine 04/18/2024 2:30 PM EST PROPHYLAXIS - ADULT Routine 03/28/2024 1 :00 PM EDT DIAGNOSTIC - DIAGNOSTIC IMAGING - INTRAORAL - COMPREHENSIVE SERIES OF RADIOGRAPHIC IMAGES Routine 03/28/2024 1:00 PM EDT COMPREHENSIVE ORAL EVALUATION - NEW OR ESTABLISHED PATIENT Routine 11/19/2021 12:00 AM EDT from Last 3 Months or Most Recently Relevant to Health Maintenance Insurance [facility] MEDICAID STAND ADULT
--- OUTSIDE RECORDS SUMMARY | 2024-07-04 12:12 | XMS_ITS | Encounter Summary ---
Author Organization [employer] Address [address] [place] [address] Care Team Providers Care Sewer Maintenance Supervisor Name Role Phone Unavailable Primary Care Provider Unavailabl e Reason for Visit * Reason Comments [place] prep Encounter Details Date Type Department Care Team ([facility] st Contact Info) Description 06/15/2024 9:00 AM EST Office Visit [facility] [address] [place] [address] Arya Franks DMD [address] [place] [address] Social History Tobacco Use Types Packs/Day Years [...] PM EDT documented as of this encounter Last Filed Vital Signs Vital Sign Reading Time Taken Comments Blood Pressure 130/70 06/15/2024 9:13 AM EST Pulse - - Temperature - - Respiratory Rate - - Oxygen Saturation - - Inhaled Oxygen Concentration - - Weight - - Height - - Body Mass Index - - documented in this encounter Progress Notes * Arya Franks DMD - 06/15/2024 9:00 AM EST Tooth#8: 1 carp of 2% Lido with 1:100,000epi, buccal and palatal infiltration, prep, temp, impression of crown #8, cement temp crown #8 with temp estes, occlusion check. Pt feels fine Pt forgot to bring her /P. Inform pt need to wear her /P NV: Delivery of crown #8 Mango documented in this encounter Plan of Treatment Upcoming Encounters Date Type Department Care Team (Late st Contact Info) Description 09/28/2024 2:00 PM EDT Office Visit [facility] [address] [place] [address] [phone] Janae Levine [address] [place] [address] [phone] Scheduled Orders Name Type Priority Associated Diagnoses Orde r Schedule 7 MIFL 7 MIFL RESIN-BASED COMPOSITE - 4 OR MORE SURFACES (ANTERIOR) Dental Routine [address] arting 06/15/2024 documented as of this encounter Procedures Procedure Name Priority Date/Time Associated Diagnosis Comments CROWN PREP Routine 06/15/2024 9:00 AM EST documented in this encounter Visit Diagnoses Not on filedocumented in this encounter
--- OUTSIDE RECORDS SUMMARY | 2024-07-04 12:12 | XMS_ITS | Encounter Summary ---
Author Organization [employer] Address [address] [place] [address] 7 [place] [address] Care Team Providers Care Educational Consultant Name Role Phone Unavailable Primary Care Provider Unavailabl e Reason for Visit * Reason Onset Date Comments appt 05/23/2024 Encounter Details Date Type Department Care Team ([facility] st Contact Info) Description 05/23/2024 Telephone [facility] [address] [place] [address] Arya Franks, DMD [address] [place] [address] appt Social History Tobacco Use Types Packs/Day Years [...] PM EDT documented as of this encounter Miscellaneous Notes * Telephone Encounter - Tiffanie Rosen - 05/23/2024 12:51 PM EST Patient called in as there seems to be a confusion regarding an appt she was supposed to have with Dr. Franks in the [place] office today. She stated that front desk agent reached out to her and she is trying to connect to get appt squared away. Please connect with patient. She is trying to get in here assoon as possible documented in this encounter Plan of Treatment Upcoming Encounters Date Type Department Care Team (Late st Contact Info) Description 09/28/2024 2:00 PM EDT Office Visit [facility] [address] [place] [phone] Janae Levine [address] [place] [address] documented as of this encounter Visit Diagnoses Not on filedocumented in this encounter
== END 2024-07-04 12:04 | disposition home or self-care (01) ==
PROVIDERS: PCP Nurse Practitioner Family; Visit Provider Internal Medicine
DX: F43.10 Post-traumatic stress disorder, unspecified (principal); I10 Essential (primary) hypertension; L57.0 Actinic keratosis

== ENCOUNTER → 2024-07-04 10:58 | Outpatient (BNVA) | payer MEDICARE, SELFPAY | PROVIDERS: PCP Nurse Practitioner Family; Visit Provider Internal Medicine | DX: I10 Essential (primary) hypertension (principal); F43.10 Post-traumatic stress disorder, unspecified; L57.0 Actinic keratosis; Z79.899 Other long term (current) drug therapy | CPT/HCPCS: 99212 ==

== ENCOUNTER 2024-07-26 06:20 | Day surgery (SDC) | payer MEDICARE, SELFPAY ==
[2024-07-26 06:40] VITALS: BP 155/57; PULSE 65; RESP 16; TEMP 36.3; O2SAT 100; BMI 27.8
--- NOTE | 2024-07-26 07:27 | W.PM.OPN ---
Operative Note Operative Note Date of Service: 07/26/24 Narrative: Operative Note Preop diagnosis: 1. Right index finger DIP joint osteoarthritis and mucous cyst Postop diagnosis: 1. same Procedure: 1. Right index finger mucous cyst excision 2. [ ] DIP joint arthrotomy and excision of osteophytes. Surgeon: Gina Garza MD [employer]: Rich ARCOS Anesthesia: Digital block using 1% lidocaine with epinephrine Findings: mucous cyst EBL: Less than 5 mL Tourniquet time: None Specimens: None Complications: None Disposition: Brought to recovery room in stable condition Plan: Follow-up for 7-10 days for wound check and suture removal Indications: The patient is 74 years old, with right index finger D IP joint osteoarthritis and a mucous cyst that has been unresponsive to nonoperative management. The risks and benefits of operative treatment including but not limited to risk of damage to blood vessels, nerves, tendons, infection, persistent pain, persistent symptoms, recurrence or possible need for additional surgery were discussed with the patient and the patient wishes to proceed with surgery. Procedure: Once consent was obtained a digital block was performed in the preop area using a combination of 1% lidocaine with epinephrine. The patient was then brought back to the operating suite and placed on the operative table in supine position. The limb was prepped and draped in a standard surgical fashion. A finger tourniquet was applied to the base of the digit for fewer than 30 minutes. Once assured that we had a good block, an L-shaped incision was made over the dorsal aspect of the right index finger distal phalanx. The incision was made through the skin to the subcutaneous tissues using a #15 blade. Careful dissection was made down to the level of the mucous cyst and extensor mechanism using iris scissors. The skin flap was carefully dissected off of the mucous cyst using iris scissors. The cyst was filled with clear viscous fluid consistent with a ganglion. It was dissected free from the surrounding tissues and removed from the finger. The cyst was placed on the back table to be sent for histopathology. Once satisfied, the wound was copiously irrigated with normal saline and hemostasis was obtained with a brief period of local pressure. The skin edges were reapproximated with some 5.0 Prolene suture material and a sterile dressing was applied. The patient appears to have tolerated the procedure well and with no complications. Cap refill to the digit was returning at the conclusion of the case.
--- NOTE | 2024-07-26 07:28 | MHC.SHP ---
Pre-Procedural Eval Section A - 24 Hr Update-Section A only Date of Service: 07/26/24 The patient is an INPATIENT: No Changes since office visit: No Cold of Flu in the past 2 weeks, No New Medical Problems, No Changes in Medication and No Patient answered all questions The patient has been examined within 24 hours of the surgical procedure. The History & Physical has been completed within 30 days and I have reviewed it.: Yes Section B - Complete if H&P > 30 days Chief Complaint: Localized swelling, mass and lump, right upper moore Allergies: Allergies Allergy/AdvReac Type Severity Reaction Status Date / Time zoloft Allergy Mild Rash Uncoded 07/26/24 06:36 Plan I have reviewed the history and physical and performed a pertinent physical examination on my patient. No changes have occurred unless specified. Time Spent With Patient Time: Total time managing care of this patient today ____ minutes.
[2024-07-26 08:15] VITALS: BP 140/56; PULSE 62; RESP 18; O2SAT 96
== END 2024-07-26 08:15 | disposition home or self-care (01) ==
PROVIDERS: PCP Nurse Practitioner Family; Visit Provider Orthopaedic Surgery
PROC: (CPT 26160; principal; 2024-07-26 07:30)
DX: M67.441 Ganglion, right hand (principal); M19.041 Primary osteoarthritis, right hand; M79.644 Pain in right finger(s); M79.641 Pain in right hand; Z87.81 Personal history of (healed) traumatic fracture; F10.10 Alcohol abuse, uncomplicated; Z88.8 Allergy status to other drugs, medicaments and biological substances; Z98.890 Other specified postprocedural states; Z56.0 Unemployment, unspecified
CPT/HCPCS: 26160; 88304; J0171; J2003; J2004

== ENCOUNTER → 2024-07-26 06:20 | Outpatient (BNV) | payer MEDICARE, SELFPAY | PROVIDERS: PCP Nurse Practitioner Family; Visit Provider Orthopaedic Surgery | DX: M71.341 Other bursal cyst, right hand (principal) | CPT/HCPCS: 26210 ==

== ENCOUNTER 2024-08-09 12:47 | Outpatient (AMB) | payer MEDICARE, SELFPAY ==
--- NOTE | 2024-08-09 13:22 | A.OFFVIS_ITS ---
Vital Signs 08/09/24 13:30 Height 5 ft 4 in Weight 162 lb BMI 27.8 Handedness Right Intake Visit Reasons: PO RT IF mucous cyst exc 07/26/24 AR Intake Note: June is a 74 year old right hand dominant female who presents today for her first post operative appointment s/p Right Index Finger Mucous Cyst Excision 07/26/24. Sutures out and steri strips applied. Patient reports 5 days ago she bumped er finger doing house work and says she ran it under ice water for relief. Patient denies any discharge from incision. Erythema at site of incision .? Allergies zoloft Allergy (Mild, Uncoded 08/09/24 13:30) Rash HPI HPI PO RT IF mucous cyst exc 07/26/24 AR: Details: June is a 74 year old right hand dominant female who presents today for her first post operative appointment s/p Right Index Finger Mucous Cyst Excision 07/26/24. Sutures out and steri strips applied. Patient reports 5 days ago she bumped er finger doing house work and says she ran it under ice water for relief. Patient denies any discharge from incision. Erythema at site of incision.? PFSH Medical History Hx of fracture of humerus (~2018) ETOH abuse Surgical History (Updated 07/26/24 @ 06:36 by Elizabeth Pierre RN) History of tonsillectomy History of intestinal surgery H/O shoulder surgery H/O foot surgery Family History Mother Diabetes Alcohol abuse FH: mental illness Father Aortic aneurysm Maternal Uncle Alcohol abuse Son Alcohol abuse Daughter Alcohol abuse Sister Substance abuse Social History Household Members: Other Housing: Apartment Alcohol intake: current Patient Tobacco Use Status: Never used Tobacco e-Cigarette/Vaping Use: Never Used Second Hand Smoke Exposure: Yes (mother was a smoker, was to someone 16 years that smoked.) service: No Current occupational status: unemployed and disabled 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 Current occupational exposures/hazards: No Cognitive needs: No Hearing needs: No Vision needs: Yes Review of Systems Const All systems reviewed & are unremarkable except as noted in HPI and below Physical Exam Vital Signs: BMI result Body Mass Index 27.8 Const General: no acute distress and alert Orientation/consciousness: patient oriented x3 Neuro General: patient oriented x3 Extrem Other: Evaluation of Bilateral Upper Extremity: The patient is alert, oriented, and in no acute distress Neuro: Median, Ulnar, Radial nerves motor and sensory intact and sensation is normal to the tips of all digits Vascular: Cap refill brisk ROM: She can make a fist and extend all her digits There is some erythema surrounding the incision site on the dorsal aspect of the DIP joint of the right index finger There is a Dupuytrens nodule in the left palm, in line with the middle & ring fingers No cords or contractures Some swelling in the dorsal aspect of the middle finger MCP joint Psych Appearance: grossly normal Affect: normal affect Attitude: cooperative Assessment & Plan Assessment & Plan (1) Ganglion cyst of finger of left hand: Code(s): M67.442 - Ganglion, left hand Category: Medical Plan 1. Status post excision of right index finger mucous cyst DOS 07/26/24 Patient appears to be recovering well postoperatively Patient is educated about the typical recovery course Due to erythema surrounding the incision site, I feel it is prudent to put the patient on a one-week course of Augmentin Patient was amenable to this plan Patient will follow-up in 1 week for wound check, sooner with any acute concerns Medications: New amoxicillin-pot clavulanate 875-125 mg 1 tab PO BID 14 tabs 0RF 7 days Coding Level of Care Code Global (66987) Diagnoses Ganglion cyst of finger of left hand M67.442
[2024-08-09 13:30] VITALS: BMI 27.8
--- OUTSIDE RECORDS SUMMARY | 2024-08-09 15:07 | XMS_ITS | Encounter Summary ---
Author Organization [employer] Address [address] [place] [address] Care Team Providers Care Moveman Name Role Phone Unavailable Primary Care Provider Unavailabl e Encounter Details Date Type Department Care Team (Latest Contact Info) Description 11/20/2021 Abstract [facility] CONVERSIONS Dental, Provider, DDS Social History Tobacco [...] Care Team (Late st Contact Info) Description 10/04/2024 2:00 PM EDT Office Visit [facility] [address], [place] [id number] Janae Levine [address] [place], [place] [phone] documented as of this encounter Visit Diagnoses Not on filedocumented in this encounter
--- OUTSIDE RECORDS SUMMARY | 2024-08-09 15:07 | XMS_ITS | Encounter Summary ---
Author Organization [employer] Address [address] [place] [address] 7 [place] [address] Care Team Providers Care Environmental Change Analyst Name Role Phone Unavailable Primary Care Provider Unavailabl e Reason for Visit * Reason Onset Date Comments appt 05/23/2024 Encounter Details Date Type Department Care Team ([facility] st Contact Info) Description 05/23/2024 Telephone [facility] [address] [place] [address] Arya Franks, DMD [address] [place] [address] appt Social History Tobacco Use Types Packs/Day [...] to have with Dr. Franks in the [place] office today. She stated that front end wheel loader operator reached out to her and she is trying to connect to get appt squared away. Please connect with patient. She is trying to get in here assoon as possible documented in this encounter Plan of Treatment Upcoming Encounters Date Type Department Care Team (Late st Contact Info) Description 10/04/2024 2:00 PM EDT Office Visit [facility] [address] [place] [phone] Janae Levine [address] [place] [address] documented as of this encounter Visit Diagnoses Not on filedocumented in this encounter
--- OUTSIDE RECORDS SUMMARY | 2024-08-09 15:07 | XMS_ITS | Clinical Summary ---
Author Organization [facility] Address [address] [place] [address] Care Team Providers Care Spoilage Worker Name Role Phone Pavithra Olmos Primary Care Provider + Source Comments PLEASE NOTE, if this patient is a minor, it may be UNLAWFUL to discuss sensitive information that is contained in these records (such as FAMILY PLANNING, MENTAL HEALTH or SUBSTANCE ABUSE) with the minor patient's parent or other person without the patient's specific authorization.[facility] Allergies Active Allergy Reactions Criticality Noted Date Comments Clindamycin Rash Medium 02/16/2017 Codeine Nausea Only Medium 02/16/2017 vomiting vomiting Waite 06/03/2021 House Dust 06/03/2021 Mold 06/03/2021 Oxycodone Nausea Only Medium 02/16/2017 vomiting vomiting Sertraline Rash Medium 02/16/2017 Medications lisinopriL 20 mg tablet Take 1 Tablet by mouth once daily 30 Tablet 2 2 Active venlafaxine (EFFEXOR-XR) 75 mg 24 hr capsule Take 1 Capsule by mouth once daily with breakfast 30 Capsule 2 Active gabapentin (NEURONTIN) 100 mg capsule Take 1 Capsule by mouth nightly at bedtime 15 Capsule 1 2 Active atorvastatin (LIPITOR) 80 mg tablet Take 1 Tablet by mouth once daily 30 Tablet 2 2 Active Active Problems Problem Noted Date Diagnosed Date Insomnia disorder, with non- sleep disorder mental comorbidity, persistent 07/23/2021 History of depression 07/23/2021 Incontinence of feces with fecal urgency 022 Assessment & Plan (07/08/2021 6:00 PM EST): Chronic problem s/p rectal prolapse and surgery. - Provided with some disposable underwear in case of emergency - F/u with PCP for connection to GI Routine health maintenance 07/08/2021 Assessment & Plan (07/08/2021 6:01 PM EST): Will check other routine labs along with CMP for htn since pt has not been recently connected to care. 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 Reports increase stress being in the correction. Coping skill: walking (exercise). Wants Gabapentin to take at night. Plan: Referral to psychological counseling. Referral to psychiatry. Future Appointments Provider Department Center 07/15/2021 8:45 AM SA[facility] PSI-W LAB ONLY [facility] 07/17/2021 4:00 PM ISRRAEL Montero [facility] Appt Notes: f/u lab results 07/23/2021 3:30 PM Jaycee Martinez MD [facility] @ [facility] 07/31/2021 3:00 [facility] Assessment & Plan (07/08/2021 5:59 PM EST): Affect still anxious. Now off psych meds. - Cont to encourage connection, although pt is set on leaving correction setting within a couple weeks Assessment & Plan (07/01/2021 6:14 PM EST): Difficult to have organized visit due to pt's affect and lability. - Strongly encouraged pt to schedule therapy appt - Encouraged psychiatry appt as well, but pt reports she will not be staying in correction much longer Sleep difficulties 06/25/2021 Assessment & Plan (06/25/2021 12:17 PM EST): Deferred further evaluation of sleep issues in hopes of expediting pick-up of lisinopril to treat hypertensive urgency. - encouraged pt to connect with team for assistance with managing anxiety and trouble sleeping Nonintractable headache 06/25/2021 Assessment & Plan (06/25/2021 12:18 PM EST): Likely secondary to very high BP. Counseled pt on risks of not treating high BP. - Rx'd lisinopril to lower BP - RN provided ibuprofen from clinic before appt to treat h/a Acute pain of left shoulder 06/03/2021 Assessment & Plan (06/03/2021 3:07 PM EST): C/O left shoulder pain 9.5/10. Full AROM, pain does not increase with mobility. VSS and afebrile. Discuss positions and stretching exercises that will alleviate pain. She was agreeable to the application of a muscle rub. Ibuprofen and muscle rub provided with instructions.Follow up with PCP and orthopedic doctor. RTC with any concerning symptoms. She stated an understanding of the instructions. Sheltered homelessness 06/03/2021 Assessment & Plan (06/03/2021 5:49 PM EST): The patient is currently staying at [facility] correction. Essential hypertension 06/03/2021 Assessment & Plan (07/14/2021 4:34 PM EST): BP Readings from Last 3 Encounters: 07/14/21 139/66 07/08/21 156/80 07/01/21 98/54 Hypertension is improving with treatment. Plan: Continue current treatment regimen, Dietary sodium restriction, Regular aerobic exercise and Ambulatory blood pressure monitoring. Red flag s/sx leading to myocardial infarction, stroke and even reviewed w/ voiced understanding. Pt agrees to seek ED evaluation should red flag sx arise. Return to clinic as needed. Assessment & Plan (07/08/2021 5:56 PM EST): BP above goal despite pt reported compliance with regimen. Due to pt arriving 23 min late for appt did not have time to recheck BP after she had spent some time sitting. Unfortunately pt did not present for additional BP reads to assess more accurate trend before today's visit. - Cont lisinopril 20 mg; cont to monitor trends - Ordered CMP to check renal fxn and lytes Assessment & Plan (07/01/2021 6:13 PM EST): BP WNL, but borderline low today in clinic. Possibly due to dehydration. - Encouraged adequate fluid intake - RTC 1 week for reassessment and possible decrease in lisinopril dose; encouraged pt to present to clinic for BP check at least 2x before f/u appt Assessment & Plan (06/25/2021 12:16 PM EST): Counseled pt that recommendation is to present to ED for hypertensive urgency and appropriate monitoring of BP lowering medication, but pt declining to go preferring to manage outpatient instead. - Rx'd lisinopril 20 mg tab (what she had previously been on) and encouraged pt to lemon picker right away from the pharmacy to initiate antihtn therapy - Encouraged pt to RTC after taking lisinopril for BP check and to schedule followup appts, but she never presented again - RTC 1 week to titrate med as needed, order f/u labs and continue connection to care Future Appointments Provider Department Center 07/01/2021 3:00 PM ISRRAEL Montero [facility] @ [facility] Assessment & Plan (06/03/2021 7:30 PM EST): BP Readings from Last 1 Encounters: 06/03/21 160/75 . Advised the patient to adapt the following healthy habits to help control blood pressure: eating a healthy diet staying physically active maintaining a healthy weight avoiding excessive alcohol consumption quitting smoking and avoiding secondhand smoke managing stress eating less salt limiting caffeine Continue to take lisinopril as directed. She stated an understanding of the instructions. RTC with any concerning symptoms. Immunizations Name Administration Dates Next Due Flu, Preservative Free 08/05/2021 Influenza (FLUZONE), high-dose, trivalent, PF Moderna COVID-19 Vaccine, re d cap blue label, 12+ Primary Series 06/24/2021 Td(adult),2 Lf tetanus toxoid,preservative free 03/10/2017 Social History Tobacco Use Types Packs/Day Years Used Date Smoking Tobacco: Never Smokeless Tobacco: Never Tobacco Cessation:Counseling Given: Yes Alcohol Use Standard Drinks/Week Comments Never 0 (1 standard drink = 0.6 oz pur e alcohol) Social Connections Answer Date Recorded Connectedness 0 02/13/2024 Financial Resource Strain Answer Date R ecorded Financial Resource Strain 0 2021 Stress Answer Date Recorded Stress 0 10/23/2020 Physical Activity Answer Date Recorded Physical Activity 0 10/23/2020 Food Insecurity Answer Date Recorded Food 0 06/24/2021 Transportation Needs Answer Date Record ed Transportation 0 06/24/2021 Housing Stability Answer Date Recorded Housing 0 06/24/2021 Safety and Environment Answer Date Shahid rded Safety 0 10/23/2020 Utilities Answer Date Recorded Utilities 0 06/24/2021 Employment Answer Date Recorded Stress 0 06/24/2021 Comments No Sex and Gender Information Value Date Recorded Sex Assigned at Female 06/03/2021 2:45 PM PST Legal Sex Female 11:48 AM PDT Gender Identity Female 06/03/2021 2:45 PM PST Sexual Orientation Straight 06/03/2021 2: 45 PM PST Last Filed Vital Signs Vital Sign Reading Time Taken Comments Blood Pressure 150/74 07/23/2021 3:10 PM EST Pulse 64 07/23/2021 3:10 PM EST Temperature 36.9 ??C (98.4 ??F) 07/23/2021 3:10 PM ES T Respiratory Rate 20 07/23/2021 3:10 PM EST Oxygen Saturation 98% 07/23/2021 3:10 PM EST Inhaled Oxygen Concentration - - Weight 66.9 kg (147 lb 6.4 oz) 07/23/2021 3:10 P M EST Height 165.1 cm (5' 5 ) 06/24/2021 1:10 PM EST Body Mass Index 24.53 06/24/2021 1:10 PM EST Plan of Treatment Health Maintenance Due Date Last Done Comments Dental Examination 1950 LTBI Screening (#1) 1949 Tobacco Screening 1950 Medicare Annual Wellness Visit 1967 Imm-Hepatitis A (1 of 2 - Ri sk 2-dose series) 1968 CT Colonography 1994 Colonoscopy 1994 Colorectal Cancer Screening 1994 FIT/gFOBT 1994 Fecal DNA 1994 Flexible Sigmoidoscopy 1994 Imm-Zoster, Recombinant (1 of 2) 1999 Bone Density Screening 2014 Falls Prevention 2014 Imm-DTaP/Tdap/Td (1 - Tdap) 03/11/2017 03/10/2017 Depression Monitoring 09/22/2021 06/24/2021, 021 Lipid Screening 07/15/2022 07/15/2021 Imm-Pneumococcal 65+ (2 of 2 - PCV) 08/20/202208/20 Spy-EMSSL-70 (2 - season) 2024 022 Imm-Influenza (#1) 2024 08/05/2021, 03/21/2017 Alcohol and Drug Screen 06/07/2024 07/14/2021, 06/24 Hepatitis C Screening Completed 07/15/2021 Procedures Procedure Name Priority Date/Time Associated Diagnosis Comments HEPATITIS C AB W/RFLX HCV RNA, QT, RT PCR Routine 07/15/2021 11:29 AM EST Routine health maintenance LIPID PANEL Routine 07/15/2021 11:29 AM EST Routine health maintenance from Last 3 Months or Most Recently Relevant to Health Maintenance Results * HEPATITIS C AB W/RFLX HCV RNA, QT, RT PCR (07/15/2021 11:29 AM EST) HEPATITIS C ANTIBODY NON-REACT ANDREINA NON-REACT ANDREINA Modular Patterns SIGNAL TO CUT-OFF 0.04 <1.[address] [facility] Comment: HCV antibody was non-reactive. There is no laboratory evidence of HCV infection. In most cases, no further action is required. However, if recent HCV exposure is suspected, a test for HCV RNA (test code 43144) is suggested. For additional information please refer to http://education.[employer]/faq/PFX76q9 (This link is being provided for informational/ educational purposes only.) Blood Blood / Unknown 07/15/2021 1 1:29 AM EST 07/15/2021 11:29 AM EST Pavithra ARCOS [facility] - BLOOD DRAW Final R esult Performing Organization Address City/[facility]/ZIP Co de Phone Number [facility] [address] [address], [facility] [employer] [address],[facility] [place] [address] * (ABNORMAL) LIPID PANEL (07/15/2021 11:29 AM EST) CHOLESTEROL, TOTAL 229(H) <200 mg/dL [facility] HDL CHOLESTEROL 59 > OR = 50 mg/dL [facility] TRIGLYCERIDES 76 <150 mg/dL [facility] LDL-CHOLESTEROL 152(H) 99 mg/dL (calc) [facility] Comment: Reference range: <100 Desirable range <100 mg/dL for primary prevention; ?? <70 mg/dL for patients with CHD or diabetic patients with > or = 2 CHD risk factors. LDL-C is now calculated using the Asim-Moon calculation, which is a validated novel method providing better accuracy than the Friedewald equation in the estimation of LDL-C. Asim SS et al. EDMUNDO. 2013;310(19): 5187-3301 (http://education.[employer]/faq/FJZ085) CHOL/HDLC RATIO 3.9 <5.0 (calc) [facility] NON-HDL CHOLESTEROL 170(H) <130 mg/dL (calc) [facility] Comment: For patients with diabetes plus 1 major ASCVD risk factor, treating to a non-HDL-C goal of <100 mg/dL (LDL-C of <70 mg/dL) is considered a therapeutic option. Blood Blood / Unknown 07/15/2021 1 1:29 AM EST 07/15/2021 11:29 AM EST Pavithra ARCOS [facility] - BLOOD DRAW Final R esult Performing Organization Address City/[facility]/ZIP Co de Phone Number [facility] [address] [address], [facility] [employer] [address] [address] from Last 3 Months or Most Recently Relevant to Health Maintenance Insurance MEDICARE - [place] [employer] Care Teams Spoilage Worker Relationship Specialty Start Date End Date Pavithra Olmos PA [address] [place] [id number] PCP - General FAMILY MEDICINE PA 07/14/21
--- OUTSIDE RECORDS SUMMARY | 2024-08-09 15:07 | XMS_ITS | Clinical Summary ---
Author Organization [employer] Address [address] [place] [address] 7 [place] [address] Care Team Providers Care Bondactor Machine Operator Name Role Phone Unavailable Primary Care Provider [...] night. Reports increase stress being in the halfway. Coping skill: walking (exercise). Wants Gabapentin to take at night. Plan: Referral to psychological counseling. Referral to psychiatry. Future Appointments Provider Department Center 07/15/2021 8:45 AM [id number] PSI-W LAB ONLY [employer] [facility] @ [facility] 07/17/2021 4:00 PM ISRRAEL Montero [email or web address] [facility] @ [facility] Appt Notes: f/u lab results 07/23/2021 3:30 PM Jaycee Martinez MD [facility] @ [facility] 07/31/2021 3:00 PM Malini Hernandes LCSW [facility] [employer] [facility] @ [facility] Nonintractable headache 06/25/2021 Overview (08/24/2023): Last Assessment [...] Plan: The patient is currently staying at [facility] halfway. Encounters Date Type Department Care Team Description 06/29/2024 10:00 AM EST Office Visit [facility] [address] [place] [phone] Arya Franks DMD 06/15/2024 9:00 AM EST Office Visit [facility] [address] [place] [address] 167[address] Arya Franks DMD 05/23/2024 Telephone [facility] [address] [place] [phone] Arya Franks DMD appt 05/22/2024 Telephone [facility] [address] [place] [phone] Silvana Varma BDS from Last 3 Months Immunizations Name Administration [...] Orientation Straight 10/28/2022 1: 38 PM EDT Last Filed Vital Signs Vital [...] Description 10/04/2024 2:00 PM EDT Office Visit [facility] [address] [place] [address] [phone] Janae Levine [address] [place], [place] [phone] Health Maintenance Due Date Last Done Comments CT Colonography 1949 Colonoscopy 1949 Colorectal Cancer Screening 1949 Depression Screening 1949 FIT DNA/Cologuard 1949 FIT 1949 FOBT 1949 Lipid Panel 1949 SDOH Screening 1949 Sigmoidoscopy 1949 Alcohol/Substance Use Screening 1961 Hepatitis C Screening 1967 Zoster Vaccines (1 of 2) 1999 DTaP/Tdap/Td Vaccines (1 - Tdap) 03/11/2017 03/10/2017 Dental Oral Exam 05/22/2022 11/19/2021 Pneumococcal Vaccine: 50+ Years (2 of 2 - PCV) 08/20/2022 [...] Procedure Name Priority Date/Time Associated Diagnosis Comments CASE PRESENTATION, DETAILED AND EXTENSIVE TREATMENT PLANNING Routine 06/29/2024 10:00 AM EST 8 CROWN - PORCELAIN/CERAMIC Routine 06/29/2024 10:00 AM EST CROWN PREP Routine 06/15/2024 9:00 AM EST PROPHYLAXIS - ADULT Routine 03/28/2024 1 :00 PM EDT INTRAORAL - COMPLETE SERIES OF RADIOGRAPHIC IMAGES Routine 03/28/2024 1:00 PM EDT COMPREHENSIVE ORAL EVALUATION - NEW OR ESTABLISHED PATIENT Routine 11/19/2021 12:00 AM EDT from Last 3 Months or Most Recently Relevant to Health Maintenance Insurance [facility] MEDICAID STAND ADULT
== END 2024-08-09 13:40 | disposition home or self-care (01) ==
PROVIDERS: PCP Nurse Practitioner Family
DX: M67.442 Ganglion, left hand (principal)
CPT/HCPCS: 99024

== ENCOUNTER → 2024-08-09 12:47 | Outpatient (BNVA) | payer MEDICARE, SELFPAY | PROVIDERS: PCP Nurse Practitioner Family | DX: Z47.89 Encounter for other orthopedic aftercare (principal); Z98.890 Other specified postprocedural states | CPT/HCPCS: 99212 ==

== ENCOUNTER 2024-08-16 10:07 | Outpatient (AMB) | payer MEDICARE, SELFPAY ==
--- NOTE | 2024-08-16 10:16 | MHC.OFFVIS ---
Vital Signs 08/16/24 10:17 Height 5 ft 4 in Weight 162 lb BMI 27.8 Intake Visit Reasons: PO RT IF mucous cyst exc 07/26/24 AR wound check Intake Note: Karlene is a 74 year old female who presents today for a post operative appointment s/p Right Index Finger Mucous Cyst Excision 07/26/24. Patient was given a course of Abx at her last visit. Patient reports that she only took about half of the prescribed antibiotics. She states that she does not want to take unnecessary Abx. Doing well, no concerns she does not think the finger is infected Allergies zoloft Allergy (Mild, Uncoded 08/09/24 13:30) Rash HPI HPI PO RT IF mucous cyst exc 07/26/24 AR wound check: Details: Karlene is a 74 year old female who presents today for a post operative appointment s/p Right Index Finger Mucous Cyst Excision 07/26/24. Patient was given a course of Abx at her last visit. Patient reports that she only took about half of the prescribed antibiotics. She states that she does not want to take unnecessary Abx. Doing well, no concerns she does not think the finger is infected PFSH Medical History Hx of fracture of humerus (~2018) ETOH abuse Surgical History (Updated 07/26/24 @ 06:36 by Elizabeth Pierre RN) History of tonsillectomy History of intestinal surgery H/O shoulder surgery H/O foot surgery Family History Mother Diabetes Alcohol abuse FH: mental illness Father Aortic aneurysm Maternal Uncle Alcohol abuse Son Alcohol abuse Daughter Alcohol abuse Sister Substance abuse Social History Household Members: Other Housing: Apartment Alcohol intake: current Patient Tobacco Use Status: Never used Tobacco e-Cigarette/Vaping Use: Never Used Second Hand Smoke Exposure: Yes (mother was a smoker, was to someone 16 years that smoked.) service: No Current occupational status: unemployed and disabled 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 Current occupational exposures/hazards: No Cognitive needs: No Hearing needs: No Vision needs: Yes Review of Systems Const All systems reviewed & are unremarkable except as noted in HPI and below Physical Exam Vital Signs: BMI result Body Mass Index 27.8 Const General: no acute distress and alert Orientation/consciousness: patient oriented x3 Neuro General: patient oriented x3 Extrem Other: Evaluation of Bilateral Upper Extremity: The patient is alert, oriented, and in no acute distress Neuro: Median, Ulnar, Radial nerves motor and sensory intact and sensation is normal to the tips of all digits Vascular: Cap refill brisk ROM: She can make a fist and extend all her digits There is some dry skin noted around the incision site, no further erythema or evidence of infection There is a Dupuytrens nodule in the left palm, in line with the middle & ring fingers No cords or contractures Some swelling in the dorsal aspect of the middle finger MCP joint Psych Appearance: grossly normal Affect: normal affect Attitude: cooperative Assessment & Plan Assessment & Plan (1) Ganglion cyst of finger of left hand: Code(s): M67.442 - Ganglion, left hand Category: Medical Plan 1. Status post excision of right index finger mucous cyst DOS 07/26/24 Patient appears to be recovering well postoperatively Patient is educated about the typical recovery course At this time, patient was informed that there was no further evidence of infection, and she will require no more antibiotics Patient was amenable to this plan Patient will follow-up as needed with any acute concerns Coding Level of Care Code Global (03672) Diagnoses Ganglion cyst of finger of left hand M67.442
[2024-08-16 10:17] VITALS: BMI 27.8
--- OUTSIDE RECORDS SUMMARY | 2024-08-16 11:32 | XMS_ITS | Encounter Summary ---
Author Organization [employer] Address [address] [place] [address] Care Team Providers Care Registered Nurse Hh Case Manager Name Role Phone Unavailable Primary Care Provider Unavailabl e Encounter Details Date Type Department Care Team (Latest Contact Info) Description 11/20/2021 Abstract [facility] CONVERSIONS Dental, Provider, DDS Social History [...] 10/04/2024 2:00 PM EDT Office Visit [facility] [address] [place], [place] [phone] Janae Levine [address] [place], [place] [phone] documented as of this encounter Visit Diagnoses Not on filedocumented in this encounter
--- OUTSIDE RECORDS SUMMARY | 2024-08-16 11:32 | XMS_ITS | Encounter Summary ---
Author Organization [employer] Address [address] [place] [address] 7 [place] [address] Care Team Providers Care Adobe Maker Name Role Phone Unavailable Primary Care Provider Unavailabl e Reason for Visit * Reason Onset Date Comments appt 05/23/2024 Encounter Details Date Type Department Care Team ([facility] st Contact Info) Description 05/23/2024 Telephone [facility] [address] [place] [address] Arya Franks, DMD [address] [place] [address] appt Social History Tobacco Use Types Packs/Day [...] to have with Dr. Franks in the [place] office today. She stated that order desk clerk reached out to her and she is trying to connect to get appt squared away. Please connect with patient. She is trying to get in here assoon as possible documented in this encounter Plan of Treatment Upcoming Encounters Date Type Department Care Team (Late st Contact Info) Description 10/04/2024 2:00 PM EDT Office Visit [facility] [address] [place] [address] Janae Levine [address] [place] [address] documented as of this encounter Visit Diagnoses Not on filedocumented in this encounter
--- OUTSIDE RECORDS SUMMARY | 2024-08-16 11:32 | XMS_ITS | Clinical Summary ---
Author Organization [facility] Address [address] [place] [address] Care Team Providers Care Cloth Cutter Name Role Phone Pavithra Olmos Primary Care [...] night. Reports increase stress being in the skilled nursing. Coping skill: walking (exercise). Wants Gabapentin to take at night. Plan: Referral to psychological counseling. Referral to psychiatry. Future Appointments Provider Department Center 07/15/2021 8:45 AM [id number] PSI-W LAB ONLY [employer] [facility] @ [facility] 07/17/2021 4:00 PM ISRRAEL Montero [employer] [facility] @ [facility] Appt Notes: f/u lab results 07/23/2021 3:30 PM Jaycee Martinez MD [facility] @ [facility] 07/31/2021 3:00 PM [facility] @ [facility] Assessment & Plan (07/08/2021 5:59 PM EST): Affect still anxious. Now off psych meds. - Cont to encourage connection, although pt is set on leaving skilled nursing setting within a couple weeks Assessment & Plan (07/01/2021 6:14 PM EST): Difficult to have organized visit due to pt's affect and lability. - Strongly encouraged pt to schedule therapy appt - Encouraged psychiatry appt as well, but pt reports she will not be staying in skilled nursing much longer Sleep difficulties 06/25/2021 Assessment & [...] EST): The patient is currently staying at [facility] skilled nursing. Essential hypertension 06/03/2021 Assessment & Plan (07/14/2021 [...] previously been on) and encouraged pt to brick picker right away from the pharmacy to initiate antihtn therapy - Encouraged pt to RTC after taking lisinopril for BP check and to schedule followup appts, but she never presented again - RTC 1 week to titrate med as needed, order f/u labs and continue connection to care Future Appointments Provider Department Center 07/01/2021 3:00 PM ISRRAEL Montero [facility] @ [facility] Assessment & Plan (06/03/2021 7:30 [...] 65+ (2 of 2 - PCV) 08/20/202208/20 [id number] (2 - season) 2024 022 Imm-Influenza (#1) [...] HEPATITIS C ANTIBODY NON-REACT ANDREINA NON-REACT ANDREINA [employer] SIGNAL TO CUT-OFF 0.04 <1.[address] [facility] Comment: HCV antibody was non-reactive. There is no laboratory evidence of HCV infection. In most cases, no further action is required. However, if recent HCV exposure is suspected, a test for HCV RNA (test code 49010) is suggested. For additional information please refer to http://education.TotSpot/faq/LLR03z1 (This link is being provided for informational/ educational purposes only.) Blood Blood / Unknown 07/15/2021 1 1:29 AM EST 07/15/2021 11:29 AM EST Pavithra ARCOS LAB - BLOOD DRAW Final R esult Performing Organization Address City/[facility]/ZIP Co de Phone Number [facility] [address] [address], [employer] [address],[place] [address] * (ABNORMAL) LIPID PANEL (07/15/2021 11:29 AM EST) CHOLESTEROL, TOTAL 229(H) <200 mg/dL [facility] HDL CHOLESTEROL 59 > OR = 50 mg/dL [facility] TRIGLYCERIDES 76 <150 mg/dL [employer] LDL-CHOLESTEROL 152(H) 99 mg/dL (calc) [facility] Comment: Reference range: <100 Desirable range <100 mg/dL for primary prevention; ?? <70 mg/dL for patients with CHD or diabetic patients with > or = 2 CHD risk factors. LDL-C is now calculated using the Asim-Moon calculation, which is a validated novel method providing better accuracy than the Friedewald equation in the estimation of LDL-C. Asim SS et al. EDMUNDO. 2013;310(19): 7044-5760 (http://education.Lumi Mobile/faq/GAO815) CHOL/HDLC RATIO 3.9 <5.0 (calc) [employer] NON-HDL CHOLESTEROL 170(H) <130 mg/dL (calc) [facility] Comment: For patients with diabetes plus 1 major ASCVD risk factor, treating to a non-HDL-C goal of <100 mg/dL (LDL-C of <70 mg/dL) is considered a therapeutic option. Blood Blood / Unknown 07/15/2021 1 1:29 AM EST 07/15/2021 11:29 AM EST Pavithra ARCOS LAB - BLOOD DRAW Final R esult Performing Organization Address City/[facility]/ZIP Co de Phone Number [facility] [address] [address], [employer] [address] FLOOR,[place] [address] from Last 3 Months or Most Recently Relevant to Health Maintenance Insurance MEDICARE - [place] [employer] [place] Care Teams Cloth Cutter Relationship Specialty Start Date End Date Pavithra Olmos PA [address] [place] [phone] PCP - General [facility] 07/14/21
--- OUTSIDE RECORDS SUMMARY | 2024-08-16 11:32 | XMS_ITS | Clinical Summary ---
Author Organization [employer] Address [address] [place] [address] 7 [place] [address] Care Team Providers Care Zigzag Appliquer Name Role Phone Unavailable Primary Care Provider [...] 07/15/2021 8:45 AM [id number] PSI-W LAB ONLY [employer] [facility] @ [facility] 07/17/2021 4:00 PM ISRRAEL Montero [employer] [facility] @ [facility] Appt Notes: f/u lab results 07/23/2021 3:30 PM Jaycee Martinez MD [facility] @ [facility] 07/31/2021 3:00 PM Malini Hernandes LCSW [facility] [employer] [facility] @ [facility] Nonintractable headache 06/25/2021 Overview (08/24/2023): Last Assessment [...] Plan: The patient is currently staying at [facility] correction. Encounters Date Type Department Care Team Description 06/29/2024 10:00 AM EST Office Visit [facility] [address] [place] [phone] Arya Franks DMD 06/15/2024 9:00 AM EST Office Visit [facility] [address] [place] [address] Arya Franks DMD 05/23/2024 Telephone [facility] [address] [place] [phone] Arya Franks DMD appt 05/22/2024 Telephone [facility] [address] [place] [phone] Silvana Varma BDS from Last 3 Months [...] Description 10/04/2024 2:00 PM EDT Office Visit [facility] [address] [place] [address] [phone] Janae Levine [address] [place], [place] [phone] Health Maintenance Due Date Last Done Comments [...] Most Recently Relevant to Health Maintenance Insurance [facility] MEDICAID STAND ADULT
== END 2024-08-16 10:25 | disposition home or self-care (01) ==
LOC: HO.HOS 10:08
PROVIDERS: PCP Nurse Practitioner Family
DX: M67.442 Ganglion, left hand (principal)
CPT/HCPCS: 99024

== ENCOUNTER → 2024-08-16 10:07 | Outpatient (BNVA) | payer MEDICARE, SELFPAY | PROVIDERS: PCP Nurse Practitioner Family | DX: Z47.89 Encounter for other orthopedic aftercare (principal); Z98.890 Other specified postprocedural states; Z87.2 Personal history of diseases of the skin and subcutaneous tissue | CPT/HCPCS: 99212 ==

== ENCOUNTER → 2024-08-29 10:45 | Outpatient (BNV) | payer MEDICARE, SELFPAY | PROVIDERS: PCP Internal Medicine; Visit Provider Internal Medicine | DX: Z12.31 Encounter for screening mammogram for malignant neoplasm of breast (principal) | CPT/HCPCS: 77063; 77067 ==

== ENCOUNTER 2024-08-29 10:47 | Outpatient (REF) | payer MEDICARE, SELFPAY ==
--- OUTSIDE RECORDS SUMMARY | 2024-08-29 13:06 | XMS_ITS | Clinical Summary ---
Author Organization [employer] Address [address] [place] [address] 7 [place] [address] Care Team Providers Care Embedded Systems Software Engineer Name Role Phone Unavailable Primary Care Provider [...] night. Reports increase stress being in the half-way. Coping skill: walking (exercise). Wants Gabapentin to take at night. Plan: Referral to psychological counseling. Referral to psychiatry. Future Appointments Provider Department Center 07/15/2021 8:45 AM SA158 PSI-W LAB ONLY [employer] [facility] @ [facility] 07/17/2021 4:00 PM ISRRAEL Montero [employer] [facility] @ [facility] Appt Notes: f/u lab results 07/23/2021 3:30 PM Jaycee Martinez MD [facility] @ [facility] 07/31/2021 3:00 PM Malini Hernandes LCSW [facility] [employer] [facility] @ [facility] Nonintractable headache 06/25/2021 Overview (08/24/2023): [...] Plan: The patient is currently staying at [facility] half-way. Encounters Date Type Department Care Team Description 06/29/2024 10:00 AM EST Office Visit [facility] [address] [place] [phone] Arya Franks DMD 06/15/2024 9:00 AM EST Office Visit [facility] [address] [place] [phone] Arya Franks DMD from Last 3 Months [...] Description 10/04/2024 2:00 PM EDT Office Visit [facility] [address] [place] [address] [phone] Janae Levine [address] [place], [place] [phone] Health Maintenance Due Date Last Done Comments [...] Most Recently Relevant to Health Maintenance Insurance [facility] MEDICAID STAND ADULT
--- OUTSIDE RECORDS SUMMARY | 2024-08-29 13:06 | XMS_ITS | Encounter Summary ---
Author Organization [employer] Address [address] [place] [address] 7 [place] [address] Care Team Providers Care Asphalt Plant Laborer Name Role Phone Unavailable Primary Care Provider Unavailabl e Reason for Visit * Reason Onset Date Comments appt 05/23/2024 Encounter Details Date Type Department Care Team ([facility] st Contact Info) Description 05/23/2024 Telephone [facility] [address] [place] [address] Arya Franks, DMD [address] [place] [address] appt Social History Tobacco Use Types Packs/Day [...] to have with Dr. Franks in the [place] office today. She stated that front desk coordinator reached out to her and she is trying to connect to get appt squared away. Please connect with patient. She is trying to get in here assoon as possible documented in this encounter Plan of Treatment Upcoming Encounters Date Type Department Care Team (Late st Contact Info) Description 10/04/2024 2:00 PM EDT Office Visit [facility] [address] [place] [address] Janae Levine [address] [place] [address] documented as of this encounter Visit Diagnoses Not on filedocumented in this encounter
--- OUTSIDE RECORDS SUMMARY | 2024-08-29 13:06 | XMS_ITS | Clinical Summary ---
Author Organization [facility] Address [address] [place] [address] Care Team Providers Care Gold Leaf Gilder Name Role Phone Pavithra Olmos Primary Care [...] night. Reports increase stress being in the [facility]. Coping skill: walking (exercise). Wants Gabapentin to take at night. Plan: Referral to psychological counseling. Referral to psychiatry. Future Appointments Provider Department Center 07/15/2021 8:45 AM SA158 PSI-W LAB ONLY [email or web address] [facility] @ [facility] 07/17/2021 4:00 PM ISRRAEL Montero [employer] [facility] @ [facility] Appt Notes: f/u lab results 07/23/2021 3:30 PM Jaycee Martinez MD [facility] @ [facility] 07/31/2021 3:00 PM [facility] @ [facility] Assessment & Plan (07/08/2021 5:59 PM EST): Affect still anxious. Now off psych meds. - Cont to encourage connection, although pt is set on leaving [facility] setting within a couple weeks Assessment & Plan (07/01/2021 6:14 PM EST): Difficult to have organized visit due to pt's affect and lability. - Strongly encouraged pt to schedule therapy appt - Encouraged psychiatry appt as well, but pt reports she will not be staying in fci much longer Sleep difficulties 06/25/2021 Assessment & [...] EST): The patient is currently staying at [facility] fci. Essential hypertension 06/03/2021 Assessment & Plan (07/14/2021 [...] previously been on) and encouraged pt to slate picker right away from the pharmacy to initiate antihtn therapy - Encouraged pt to RTC after taking lisinopril for BP check and to schedule followup appts, but she never presented again - RTC 1 week to titrate med as needed, order f/u labs and continue connection to care Future Appointments Provider Department Center 07/01/2021 3:00 PM ISRRAEL Montero [facility] @ [facility] Assessment & Plan (06/03/2021 7:30 PM [...] instructions. RTC with any concerning symptoms. Immunizations Immunization Administration Dates Next Due Flu, Preservative Free [...] 65+ (2 of 2 - PCV) 08/20/202208/20 [id number] (2 - season) 2024 022 Imm-Influenza (#1) [...] HEPATITIS C ANTIBODY NON-REACT ANDREINA NON-REACT ANDREINA [employer] SIGNAL TO CUT-OFF 0.04 <1.00 [facility] Comment: HCV antibody was non-reactive. There is no laboratory evidence of HCV infection. In most cases, no further action is required. However, if recent HCV exposure is suspected, a test for HCV RNA (test code 18663) is suggested. For additional information please refer to http://education.Move Networks/faq/GAJ93v9 (This link is being provided for informational/ educational purposes only.) Blood Blood / Unknown 07/15/2021 1 1:29 AM EST 07/15/2021 11:29 AM EST Pavithra ARCOS LAB - BLOOD DRAW Final R esult Performing Organization Address City/[facility]/ZIP Co de Phone Number [employer] [facility] [address] [address], [employer] [address],[facility] [place] [address] * (ABNORMAL) LIPID PANEL (07/15/2021 11:29 AM EST) CHOLESTEROL, TOTAL 229(H) <200 mg/dL [employer] [facility] HDL CHOLESTEROL 59 > OR = 50 mg/dL [employer] [facility] TRIGLYCERIDES 76 <150 mg/dL [employer] [facility] LDL-CHOLESTEROL 152(H) 99 mg/dL (calc) [employer] [facility] Comment: Reference range: <100 Desirable range <100 mg/dL for primary prevention; ?? <70 mg/dL for patients with CHD or diabetic patients with > or = 2 CHD risk factors. LDL-C is now calculated using the Asim-Moon calculation, which is a validated novel method providing better accuracy than the Friedewald equation in the estimation of LDL-C. Asim SS et al. EDMUNDO. 2013;310(19): 9248-4593 (http://education.Unocoin/faq/VHC267) CHOL/HDLC RATIO 3.9 <5.0 (calc) [employer] [facility] NON-HDL CHOLESTEROL 170(H) <130 mg/dL (calc) [employer] [facility] Comment: For patients with diabetes plus 1 major ASCVD risk factor, treating to a non-HDL-C goal of <100 mg/dL (LDL-C of <70 mg/dL) is considered a therapeutic option. Blood Blood / Unknown 07/15/2021 1 1:29 AM EST 07/15/2021 11:29 AM EST Pavithra ARCOS LAB - BLOOD DRAW Final R esult Performing Organization Address City/[facility]/ZIP Co de Phone Number [employer] [facility] [address] [address], [employer] [address] [address] from Last 3 Months or Most Recently Relevant to Health Maintenance Insurance MEDICARE - [place] [employer] [place] Care Teams Gold Leaf Gilder Relationship Specialty Start Date End Date Pavithra Olmos PA [address] [place] [phone] PCP - General [facility] 07/14/21
--- OUTSIDE RECORDS SUMMARY | 2024-08-29 13:06 | XMS_ITS | Encounter Summary ---
Author Organization [employer] Address [address] [place] [address] Care Team Providers Care Staffing Mgr Name Role Phone Unavailable Primary Care Provider Unavailabl e Encounter Details Date Type Department Care Team (Latest Contact Info) Description 11/20/2021 Abstract [facility] CONVERSIONS Dental, Provider, DDS Social History [...] Description 10/04/2024 2:00 PM EDT Office Visit [facility] [address] [place], [place] [phone] Janae Levine [address] [place], [place] [phone] documented as of this encounter Visit Diagnoses Not on filedocumented in this encounter
== END 2024-08-29 10:48 | disposition home or self-care (01) ==
LOC: HO.MAMMO 10:47
PROVIDERS: PCP Internal Medicine; Visit Provider Internal Medicine
DX: Z12.31 Encounter for screening mammogram for malignant neoplasm of breast (principal)
CPT/HCPCS: 77063; 77067

== ENCOUNTER 2025-02-14 10:08 | Outpatient (AMB) | payer MEDICARE, SELFPAY ==
--- OUTSIDE RECORDS SUMMARY | 2025-02-13 10:30 | XMS_ITS | Encounter Summary ---
Author Organization [employer] Address [address] [place] [address] [place] [address] Care Team Providers Care Freight Dispatcher Name Role Phone Unavailable Primary Care Provider Unavailabl e Reason for Visit * Reason Comments Dentures Upper denture delive ry Encounter Details Date Type Department Care Team (Late st Contact Info) Description 02/13/2025 10:30 AM EDT Office Visit [facility] [address] [place] [id number] Silvana Varma BDS [address] [place] [address] Social History Tobacco Use Types Packs/Day Years [...] as of this encounter Progress Notes * Silvana Varma BDS - 02/13/2025 10:30 AM EDT Patient was here for partial denture delivery after adding #7.She felt color is yellowish.Patient has crown #8 which is light A 2 shade than rest of her other natural anterior teeth which is A3.Told Patient we would send it to lab and have it corrected.Advised her to choose the shade and she chose A 2 documented in this encounter Plan of Treatment Upcoming Encounters Date Type Department Care Team (Late st Contact Info) Description 02/20/2025 11:30 AM EDT Office Visit [facility] [address] [place] [address] Silvana Varma BDS [address] [place] [phone] 04/10/2025 1:00 PM EST Office Visit [facility] [address] [place] [address] Janae Levine [address] [place] [phone] documented as of this encounter Procedures Procedure Name Priority Date/Time Associated Diagnosis Comments RE-EVAL - POST-OP OFFICE VISIT Routine 02/13/2025 10:30 AM EDT documented in this encounter Visit Diagnoses Not on filedocumented in this encounter
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
[2025-02-14 10:22] VITALS: BP 160/100; PULSE 72; O2SAT 97; BMI 28.0
--- OUTSIDE RECORDS SUMMARY | 2025-02-14 12:20 | XMS_ITS | Encounter Summary ---
Author Organization [employer] Address [address] [place] [address] [place] [address] Care Team Providers Care Home Visit Field Care Manager Name Role Phone Unavailable Primary Care Provider Unavailabl e Reason for Visit * Reason Onset Date Comments appt 05/23/2024 Encounter Details Date Type Department Care Team ([facility] st Contact Info) Description 05/23/2024 Telephone [facility] [address] [place], [place] [phone] Arya Franks, DMD [address] [place] [address] appt Social History Tobacco Use Types Packs/Day [...] to have with Dr. Franks in the [place] office today. She stated that bowling or skating front desk clerk reached out to her and she is trying to connect to get appt squared away. Please connect with patient. She is trying to get in here assoon as possible documented in this encounter Plan of Treatment Upcoming Encounters Date Type Department Care Team (Late st Contact Info) Description 02/20/2025 11:30 AM EDT Office Visit [facility] [address] [place] [address] Silvana Varma BDS [address] [place] [address] 04/10/2025 1:00 PM EST Office Visit [facility] [address] [place] [address] Janae Levine [address] [place] [address] documented as of this encounter Visit Diagnoses Not on filedocumented in this encounter
--- OUTSIDE RECORDS SUMMARY | 2025-02-14 12:20 | XMS_ITS | Clinical Summary ---
Author Organization [facility] Address [address] [place] [address] Care Team Providers Care Pet Feeder Name Role Phone Pavithra Olmos Primary Care [...] night. Reports increase stress being in the fdc. Coping skill: walking (exercise). Wants Gabapentin to take at night. Plan: Referral to psychological counseling. Referral to psychiatry. Future Appointments Provider Department Center 07/15/2021 8:45 AM SA158 PSI-W LAB ONLY [facility] @ [facility] 07/17/2021 4:00 PM ISRRAEL Montero [facility] @ [facility] Appt Notes: f/u lab results 07/23/2021 3:30 PM Jaycee Martinez MD [facility] @ [facility] 07/31/2021 3:00 [facility] @ [facility] Assessment & Plan (07/08/2021 5:59 PM EST): Affect still anxious. Now off psych meds. - Cont to encourage connection, although pt is set on leaving fdc setting within a couple weeks Assessment & Plan (07/01/2021 6:14 PM EST): Difficult to have organized visit due to pt's affect and lability. - Strongly encouraged pt to schedule therapy appt - Encouraged psychiatry appt as well, but pt reports she will not be staying in fdc much longer Sleep difficulties 06/25/2021 Assessment & [...] EST): The patient is currently staying at [facility] fdc. Essential hypertension 06/03/2021 Assessment & Plan (07/14/2021 [...] previously been on) and encouraged pt to warehouse picker right away from the pharmacy to initiate antihtn therapy - Encouraged pt to RTC after taking lisinopril for BP check and to schedule followup appts, but she never presented again - RTC 1 week to titrate med as needed, order f/u labs and continue connection to care Future Appointments Provider Department Center 07/01/2021 3:00 PM ISRRAEL Montero [facility] @ [facility] Assessment & Plan (06/03/2021 7:30 PM [...] cap blue label, 12+ Primary Series 06/24/2021 Td (adult),2 Lf tetanus toxo id (TDVAX), preservative free 03/10/2017 Social History Tobacco Use Types [...] 64 07/23/2021 3:10 PM EST Temperature 36.9 C (98.4 F) 07/23/2021 3:10 PM EST Respiratory Rate 20 07/23/2021 3:10 PM EST [...] 2014 Imm-DTaP/Tdap/Td (1 - Tdap) 03/11/2017 03/10/2017 Lipid Screening 07/15/2022 07/15/2021 Hypertension Screening (#1) 07/23/2022 Imm-Pneumococcal 50+ (2 of 2 - PCV) 08/20/202208/20 Imm-RSV (adult) (1 - 1-dose 75+ series) 2024 Alcohol and Drug Screen 06/07/2024 07/14/2021 Depression Annual Screen 06/07/2024 [id number]-25 (2 - season) 2025 022 Imm-Influenza (#1) 2025 08/05/2021, 03/21/2017 Hepatitis C Screening Completed 07/15/2021 Procedures Procedure Name Priority Date/Time Associated Diagnosis Comments HEPATITIS C AB W/RFLX HCV RNA, QT, RT PCR Routine 07/15/2021 11:29 AM EST Routine health maintenance LIPID PANEL Routine 07/15/2021 11:29 AM EST Routine health maintenance from Last 3 Months or Most Recently Relevant to Health Maintenance Results * Hep C AB w/reflex to HCV RNA (07/15/2021 11:29 AM EST) HEPATITIS C ANTIBODY NON-REACT ANDREINA NON-REACT ANDREINA [facility] SIGNAL TO CUT-OFF 0.04 <1.00 All[facility] Comment: HCV antibody was non-reactive. There is no laboratory evidence of HCV infection. In most cases, no further action is required. However, if recent HCV exposure is suspected, a test for HCV RNA (test code 46990) is suggested. For additional information please refer to http://education.[employer]/faq/MFA94d0 (This link is being provided for informational/ educational purposes only.) Blood Blood / Unknown 07/15/2021 1 1:29 AM EST 07/15/2021 11:29 AM EST Pavithra ARCOS LAB - BLOOD DRAW Final R esult Performing Organization Address City/[facility]/ZIP Co de Phone Number [facility] [address] [address], [employer] [address],[facility] [place] [address] * (ABNORMAL) Lipid Panel (07/15/2021 11:29 AM EST) CHOLESTEROL, TOTAL 229(H) <200 mg/dL [facility] HDL CHOLESTEROL 59 > OR = 50 mg/dL [facility] TRIGLYCERIDES 76 <150 mg/dL [facility] LDL-CHOLESTEROL 152(H) 99 mg/dL (calc) [facility] Comment: Reference range: <100 Desirable range <100 mg/dL for primary prevention; <70 mg/dL for patients with CHD or diabetic patients with > or = 2 CHD risk factors. LDL-C is now calculated using the Asim-Moon calculation, which is a validated novel method providing better accuracy than the Friedewald equation in the estimation of LDL-C. Asim SS et al. EDMUNDO. 2013;310(19): 8313-1092 (http://education.[employer]/faq/HVM306) CHOL/HDLC RATIO 3.9 <5.0 (calc) [facility] NON-HDL CHOLESTEROL 170(H) <130 mg/dL (calc) [facility] Comment: For patients with diabetes plus 1 major ASCVD risk factor, treating to a non-HDL-C goal of <100 mg/dL (LDL-C of <70 mg/dL) is considered a therapeutic option. Blood Blood / Unknown 07/15/2021 1 1:29 AM EST 07/15/2021 11:29 AM EST Pavithra ARCOS LAB - BLOOD DRAW Final R esult Performing Organization Address City/[facility]/ZIP Co de Phone Number [employer] [address] [address], [employer] [facility] [address] [address] from Last 3 Months or Most Recently Relevant to Health Maintenance Insurance [place]ICARE - [place] [employer] Care Teams Pet Feeder Relationship Specialty Start Date End Date Pavithra Olmos PA [address] [place] [phone] PCP - [facility] 07/14/21
--- OUTSIDE RECORDS SUMMARY | 2025-02-14 12:20 | XMS_ITS | Clinical Summary ---
Author Organization [employer] Address [address] [place] [address] [place] [address] Care Team Providers Care Airplane Rental Clerk Name Role Phone Unavailable Primary Care Provider [...] by mouth 2 times daily. 03/12/2024 Active acetaminophen (Tylenol 8 Hour) 650 MG ER tablet Take 1 tablet (650 mg) by mouth every 8 (eight) hours if needed for mild pain for up to 10 days. Do not crush, chew, or split. 30 tablet 01/25/2025 ibuprofen 800 MG tablet Take 1 tablet (800 mg) by mouth 3 times daily for 10 days. 30 tablet 01/25/2025 5 Active Problems Problem Noted Date Diagnosed Date [...] night. Reports increase stress being in the long term. Coping skill: walking (exercise). Wants Gabapentin to take at night. Plan: Referral to psychological counseling. Referral to psychiatry. Future Appointments Provider Department Center 07/15/2021 8:45 AM [id number] PSI-W LAB ONLY [facility] @ [facility] 07/17/2021 4:00 PM ISRRAEL Montero [facility] @ [facility] Appt Notes: f/u lab results 07/23/2021 3:30 PM Jaycee Martinez MD [facility] @ [facility] 07/31/2021 3:00 PM Malini Hernandes LCSW [facility] @ [facility] Nonintractable headache 06/25/2021 Overview (08/24/2023): Last [...] Plan: The patient is currently staying at [facility] long term. Encounters Date Type Department Care Team Description 02/13/2025 10:30 AM EDT Office Visit [facility] [address] [place] [phone] Silvana Varma BDS 02/06/2025 11:30 AM EDT Office Visit [facility] [address] [place] [phone] Avani, Deviprasad, BDS Partially edentulous maxilla, unspecified edentulism class (Primary Dx) 01/30/2025 10:00 AM EDT Office Visit [facility] [address] [place] [address] Avani, Aisad, BDS 01/25/2025 9:30 AM EDT Office Visit [facility] [address] [place] [phone] Avani, Deviprasad, BDS Fracture of tooth enamel and dentin (Primary Dx) 01/04/2025 10:00 AM EDT Office Visit [facility] [address] [place] [address] Otis Vazquez from Last 3 Months Immunizations Immunization Administration Dates Next Due Influenza injectable quadrivalent [...] Sign Reading Time Taken Comments Blood Pressure 130/68 11/01/2024 10:20 AM EDT Pulse 64 10/04/2024 2:14 PM EDT Temperature - - Respiratory Rate - - Oxygen Saturation - - Inhaled Oxygen Concentration - - Weight - - Height - - Body Mass Index - - Plan of Treatment Upcoming Encounters Date Type Department Care Team (Late st Contact Info) Description 02/20/2025 11:30 AM EDT Office Visit [facility] [address] [place] [phone] Avani, Rebeccarashadyvrose, BDS [address] [place] [address] 04/10/2025 1:00 PM EST Office Visit [facility] [address] [place], [place] [phone] Janae Levine [address] [place], [place] [phone] Health Maintenance Due Date Last Done Comments CT Colonography 1949 Colonoscopy 1949 Colorectal Cancer Screening 1949 Depression Screening 1949 FIT DNA/Cologuard 1949 FIT 1949 FOBT 1949 Lipid Panel 1949 SDOH Screening 1949 Sigmoidoscopy 1949 Alcohol/Substance Use Screening 1961 Hepatitis C Screening 1967 Zoster Vaccines (1 of 2) 1999 Pneumococcal Vaccine: 50+ Years (2 of 2 - PCV) 08/20/2022 08/20/2021 RSV Patients and Patients Aged 60 years or older (1 - 1-dose 75+ series) 2024 COVID-19 Vaccine (3 - 2024-2 6 season) 2025 10/09/2021, 06/24/2021 Influenza Vaccine (#1) 2025 , 03/21/2017 Dental X-Ray: Bitewings 03/29/2025 03/28/2024 Dental Oral Exam 04/06/2025 10/04/2024, 11/19/2021 Dental Prophylaxis 04/06/2025 10/04/2024, 03/28/2024, 11/20/2021 Tobacco Screening 02/13/2026 02/13/2025 Dental X-Ray: Full Mouth 03/29/2027 03/28/2024 DTaP/Tdap/Td Vaccines (2 - T d or Tdap) 01/08/2034 01/09/2024, 03/10/2017 HIB Vaccines Aged Out No longer eligi [...] patient's age to complete this topic Meningococcal B Vaccine Aged Out No l onger eligible based on patient's age to complete [...] OFFICE VISIT Routine 02/13/2025 10:30 AM EDT CASE PRESENTATION, DETAILED AND EXTENSIVE TREATMENT PLANNING Routine 02/06/2025 11:30 AM EDT DENTURE IMPRESSION Routine 02/06/2025 11 :30 AM EDT RE-EVAL - POST-OP OFFICE VISIT Routine 01/30/2025 10:00 AM EDT CASE PRESENTATION, DETAILED AND EXTENSIVE TREATMENT PLANNING Routine 01/25/2025 9:30 AM EDT 7 PALLIATIVE (EMERGENCY) TREATMENT OF DENTAL PAIN - MINOR PROCEDURE Routine 01/25/2025 9:30 AM EDT 7 EXTRACTION, ERUPTED TOOTH OR EXPOSED ROOT (ELEVATION/FORCEPS REMOVAL) Routine 01/25/2025 9:30 AM EDT CASE PRESENTATION, DETAILED AND EXTENSIVE TREATMENT PLANNING Routine 01/04/2025 10:00 AM EDT 7 INTRAORAL - PERIAPICAL FIRST RADIOGRAPHIC IMAGE Routine 01/04/2025 10:00 AM EDT 7 LIMITED ORAL EVALUATION - PROBLEM FOCUSED Routine 01/04/2025 10:00 AM EDT PROPHYLAXIS - ADULT Routine 10/04/2024 2 :00 PM EDT PERIODIC ORAL EVALUATION - ESTABLISHED PATIENT Routine 10/04/2024 2:00 PM EDT INTRAORAL - COMPLETE SERIES OF RADIOGRAPHIC IMAGES Routine 03/28/2024 1:00 PM EDT from Last 3 Months or Most Recently Relevant to Health Maintenance Insurance [facility] MEDICAID STAND ADULT
--- OUTSIDE RECORDS SUMMARY | 2025-02-14 12:20 | XMS_ITS | Patient Health Record ---
Author Organization [employer] [facility] Address [address] [place] [phone] Care Team Providers Care Agricultural Education Teacher Name Role Phone Brian Augustin MD Primary Care Provider [phone] Allergies Allergen (clinical drug ingredient) Drug/Non Drug Allergy documented on EMR Reaction Allergy Type Onset Date Status codeine Codeine Sulfate dizziness Drug Allergy A ctive sertraline Zoloft Unknown Drug Allergy Active Reason For Referral No Information Medications Medication SIG (Take, Route, Fr equency, Duration) Notes Start Date End Date Status KlonoPIN 0.5 MG 1 tablet Orally tid prn anxiety 02/24/2016 Active Effexor XR 75 MG 1 capsule with food Orally Once a day 04/23/2016 Active Lisinopril 10 MG 1 tablet Orally Once a day Active Omeprazole 20 MG 1 Orally 30 min befo re bed, qd; Duration: 30 day(s) 01/28/2016 Active traZODone HCl 50 MG 0.5 tablet Orally qh s. may repeat in 30min prn once.; Duration: 30 day(s) 07/10/2014 Not-Taking Immunizations Vaccine Route Administration Date Status Comme nts Pneumococcal / State supplied Unknown 10/10/2011 Admini stered Given at [facility] Tetanus (adult) Purchased Unknown 03/16/2014 Administer ed Problems Problem Type SNOMED Code ICD Code Onset Dates Problem Status W/U Status Risk Notes Problem Rectal prolapse (67920105) Rectal prolapse (K62.3) Active confirmed Problem Anxiety (82113077) Anxiety (F41.9) Active confirmed Problem Essential hypertension (21067360) HTN, goal below 140/90 (I10) Active confirmed Problem Impaired glucose tolerance (2505645) Impaired glucose tolerance (R73.02) Active confirmed Problem Polycythemia (054037400) Polycythemia (D75.1) Active confirmed Problem Depression (026663952) Depression (F32.9) Active confirmed Problem Hypertension (98153012) HTN (I10) Active confirmed Problem Malignant tumor of urinary bladder (606429688) Malignant neoplasm of urinary bladder, unspecified site (C67.9) Active confirmed Plan Of Treatment No Information Insurance Providers Payer Name Payer Address Payer Phone Subscriber Number Group Number Insured Name Patient Relationship to Insured Coverage Start Date Coverage End Date Medicare Part B [address] [place] [phone] [id number] June Read Self - patient is the insured 4 [facility] [address] [place] [phone] [id number] June Read Self - patient is the insured Medical (General) History Medical History History ICD Code Last CPE 07/22/2011- pt advis ed to sched appt 08/29/15, 11/12/15, 11/15/15,12/13/2016 HTN Depression Anxiety Alcohol Abuse PTSD Asthma HLP Bladder Ca, dx and resection 2016 Surgical History Surgery Date(Month/Year) rectal prolapse repair
--- OUTSIDE RECORDS SUMMARY | 2025-02-14 12:20 | XMS_ITS | Encounter Summary ---
Author Organization [facility] Address [address] [place] [address] Care Team Providers Care Supervisor Curing Room Name Role Phone Unavailable Primary Care Provider Unavailabl e Encounter Details Date Type Department Care Team (Latest Contact Info) Description 11/20/2021 Abstract [facility] CONVERSIONS Dental, Provider, DDS Social History [...] Description 02/20/2025 11:30 AM EDT Office Visit [facility] [address] [place] [phone] Silvana Varma BDS [address] [place] [phone] 04/10/2025 1:00 PM EST Office Visit [facility] [address] [place] [phone] Janae Levine [address] [place] [phone] documented as of this encounter Visit Diagnoses Not on filedocumented in this encounter
== END 2025-02-14 11:23 | disposition home or self-care (01) ==
LOC: HO.HSMS 10:09
PROVIDERS: PCP Internal Medicine; Visit Provider Nurse Practitioner Family
DX: H93.13 Tinnitus, bilateral (principal); J32.9 Chronic sinusitis, unspecified
CPT/HCPCS: 99204

== ENCOUNTER → 2025-02-14 10:08 | Outpatient (BNVA) | payer MEDICARE, SELFPAY | PROVIDERS: PCP Internal Medicine; Visit Provider Nurse Practitioner Family | DX: H93.13 Tinnitus, bilateral (principal); J32.9 Chronic sinusitis, unspecified; F10.10 Alcohol abuse, uncomplicated; I10 Essential (primary) hypertension; R29.818 Other symptoms and signs involving the nervous system | CPT/HCPCS: 99202 ==

== ENCOUNTER → 2025-03-02 11:14 | Outpatient (BNV) | payer MEDICARE, SELFPAY | PROVIDERS: PCP Internal Medicine; Visit Provider Student in an Organized Health Care Education/Training Program | DX: I67.82 Cerebral ischemia (principal); G93.9 Disorder of brain, unspecified | CPT/HCPCS: 70553 ==

== ENCOUNTER 2025-03-02 11:16 | Outpatient (REF) | payer MEDICARE, SELFPAY ==
--- NOTE | ~2025-03-02 | MR_ITS ---
CLINICAL HISTORY: H93.13 - Tinnitus, bilateral --- Additional Notes or Special Instructions: With bilateral IAC MR Brain with and without gadolinium Comparison: None provided Findings: No restricted diffusion. No intra-axial mass or hemorrhage. No midline shift. No hydrocephalus. Vascular flow voids are intact. Bilateral IACs and labyrinthine structures are within normal limits. Mild generalized cerebral volume loss and chronic microvascular ischemic changes. The orbits are normal. The sinuses and mastoid air cells are clear. No focal bone lesion. IMPRESSION: No acute intracranial disease. No abnormal enhancement or mass lesions. Bilateral IAC's and the labyrinthine structures are within normal limits. Mild generalized cerebral volume loss and chronic microvascular ischemic changes. This document has been electronically signed by: Brittney Becker MD on 03/04/2025 19:12:26
--- OUTSIDE RECORDS SUMMARY | 2025-03-02 13:09 | XMS_ITS | Encounter Summary ---
Author Organization [employer] [facility] Address [address] [place] [address] Care Team Providers Care Laborer Egg Producing Farm Name Role Phone Unavailable Primary Care Provider Unavailabl e Encounter Details Date Type Department Care Team (Latest Contact Info) Description 11/20/2021 Abstract [facility] CONVERSIONS Dental, Provider, DDS Social [...] Care Team (Late st Contact Info) Description 04/10/2025 1:00 PM EST Office Visit [facility] [address] [place], [place] [phone] Janae Levine [address] [place], [place] [phone] documented as of this encounter Visit Diagnoses Not on filedocumented in this encounter
--- OUTSIDE RECORDS SUMMARY | 2025-03-02 13:09 | XMS_ITS | Encounter Summary ---
Author Organization [employer] Address [address] [place] [address] [place] [address] Care Team Providers Care Contaminated Land Consultant Name Role Phone Unavailable Primary Care Provider Unavailabl e Reason for Visit * Reason Onset Date Comments appt 05/23/2024 Encounter Details Date Type Department Care Team ([facility] Contact Info) Description 05/23/2024 Telephone [facility] [address] [place], [place] [phone] Arya Franks, DMD [address] [place] [address] appt Social History Tobacco Use Types Packs/Day [...] to have with Dr. Franks in the [place] office today. She stated that manager front office reached out to her and she is trying to connect to get appt squared away. Please connect with patient. She is trying to get in here assoon as possible documented in this encounter Plan of Treatment Upcoming Encounters Date Type Department Care Team (Late st Contact Info) Description 04/10/2025 1:00 PM EST Office Visit [facility] [address] [place] [phone] Janae Levine [address] [place], [place] [phone] documented as of this encounter Visit Diagnoses Not on filedocumented in this encounter
--- OUTSIDE RECORDS SUMMARY | 2025-03-02 13:09 | XMS_ITS | Clinical Summary ---
Author Organization [facility] Address [address] [place] [address] Care Team Providers Care Draw Press Operator Name Role Phone Pavithra Olmos Primary Care [...] 07/15/2021 8:45 AM [id number] PSI-W LAB ONLY [facility] 07/17/2021 4:00 PM ISRRAEL Montero [facility] Appt Notes: f/u lab results 07/23/2021 3:30 PM Jaycee Martinez MD [facility] @ [facility] 07/31/2021 3:00 PM [facility] Assessment & Plan (07/08/2021 5:59 PM EST): Affect still anxious. Now off psych meds. - Cont to encourage connection, although pt is set on leaving halfway setting within a couple weeks Assessment & Plan (07/01/2021 6:14 PM EST): Difficult to have organized visit due to pt's affect and lability. - Strongly encouraged pt to schedule therapy appt - Encouraged psychiatry appt as well, but pt reports she will not be staying in halfway much longer Sleep difficulties 06/25/2021 Assessment & [...] EST): The patient is currently staying at [facility] halfway. Essential hypertension 06/03/2021 Assessment & Plan (07/14/2021 [...] previously been on) and encouraged pt to pickling grader right away from the pharmacy to initiate antihtn therapy - Encouraged pt to RTC after taking lisinopril for BP check and to schedule followup appts, but she never presented again - RTC 1 week to titrate med as needed, order f/u labs and continue connection to care Future Appointments Provider Department Center 07/01/2021 3:00 PM ISRRAEL Montero [facility] @ [facility] Assessment & Plan (06/03/2021 7:30 [...] Screen 06/07/2024 07/14/2021 Depression Annual Screen 06/07/2024 [id number] (2 - season) 2025 022 Imm-Influenza (#1) [...] HEPATITIS C ANTIBODY NON-REACT ANDREINA NON-REACT ANDREINA [employer] SIGNAL TO CUT-OFF 0.04 <1.00 [employer] Comment: HCV antibody was non-reactive. There is no laboratory evidence of HCV infection. In most cases, no further action is required. However, if recent HCV exposure is suspected, a test for HCV RNA (test code 91706) is suggested. For additional information please refer to http://education.Innovand/faq/LWL86g1 (This link is being provided for informational/ educational purposes only.) Blood Blood / Unknown 07/15/2021 1 1:29 AM EST 07/15/2021 11:29 AM EST Pavithra ARCOS LAB - BLOOD DRAW Final R esult Performing Organization Address City/[facility]/ZIP Co de Phone Number [employer] [facility] [address] [address], [employer] [address],[facility] [place] [address] * (ABNORMAL) Lipid Panel (07/15/2021 11:29 AM EST) CHOLESTEROL, TOTAL 229(H) <200 mg/dL [employer] [facility] HDL CHOLESTEROL 59 > OR = 50 mg/dL [employer] [facility] TRIGLYCERIDES 76 <150 mg/dL [employer] [facility] LDL-CHOLESTEROL 152(H) 99 mg/dL (calc) [employer] [facility] Comment: Reference range: <100 Desirable range <100 mg/dL for primary prevention; <70 mg/dL for patients with CHD or diabetic patients with > or = 2 CHD risk factors. LDL-C is now calculated using the Asim-Moon calculation, which is a validated novel method providing better accuracy than the Friedewald equation in the estimation of LDL-C. Asim SS et al. EDMUNDO. 2013;310(19): 2815-9495 (http://education.iZ3D/faq/QJG455) CHOL/HDLC RATIO 3.9 <5.0 (calc) [employer] [facility] NON-HDL CHOLESTEROL 170(H) <130 mg/dL (calc) [employer] [facility] Comment: For patients with diabetes plus 1 major ASCVD risk factor, treating to a non-HDL-C goal of <100 mg/dL (LDL-C of <70 mg/dL) is considered a therapeutic option. Blood Blood / Unknown 07/15/2021 1 1:29 AM EST 07/15/2021 11:29 AM EST Pavithra ARCOS LAB - BLOOD DRAW Final R esult Performing Organization Address City/[facility]/ZIP Co de Phone Number [employer] [facility] [address] [address], [employer] [facility] [address] [address] from Last 3 Months or Most Recently Relevant to Health Maintenance Insurance [place]ARE - [place] [employer] [place] Care Teams Draw Press Operator Relationship Specialty Start Date End Date Pavithra Olmos PA [address] [place] [phone] PCP - General [facility] 07/14/21
--- OUTSIDE RECORDS SUMMARY | 2025-03-02 13:09 | XMS_ITS | Clinical Summary ---
Author Organization [employer] Address [address] [place] [address] [place] [address] Care Team Providers Care Glass Vial Filler Name Role Phone Unavailable Primary Care Provider [...] night. Reports increase stress being in the nursing home. Coping skill: walking (exercise). Wants Gabapentin to take at night. Plan: Referral to psychological counseling. Referral to psychiatry. Future Appointments Provider Department Center 07/15/2021 8:45 AM SA158 PSI-W LAB ONLY [facility] @ [facility] 07/17/2021 4:00 PM ISRRAEL Montero [facility] @ [facility] Appt Notes: f/u lab results 07/23/2021 3:30 PM Jaycee Martinez MD [facility] @ [facility] 07/31/2021 3:00 PM Malini Hernandes LCSW [facility] @ [facility] Nonintractable headache 06/25/2021 Overview (08/24/2023): Last [...] Plan: The patient is currently staying at [facility] nursing home. Encounters Date Type Department Care Team Description 02/20/2025 11:30 AM EDT Office Visit [facility] [address] [place] [phone] Avani, Silvana, BDS Partially edentulous maxilla, unspecified edentulism class (Primary Dx) 02/13/2025 10:30 AM EDT Office Visit [facility] [address] [place] [phone] Avani, Aisad, BDS 02/06/2025 11:30 AM EDT Office Visit [facility] [address] [place] [phone] Yuriyonamireyaly, Deviprasad, BDS Partially edentulous maxilla, unspecified edentulism class (Primary Dx) 01/30/2025 10:00 AM EDT Office Visit [facility] [address] [place] [phone] Yuriyonamireyaly, Deviprasad, BDS 01/25/2025 9:30 AM EDT Office Visit [facility] [address] [place] [phone] Yuriyonamireyaly, Deviprasad, BDS Fracture of tooth enamel and dentin (Primary Dx) 01/04/2025 10:00 AM EDT Office Visit [facility] [address] [place] [address] Otis Vazquez from Last 3 Months Immunizations [...] Description 04/10/2025 1:00 PM EST Office Visit [facility] [address] [place] [address] Janae Levine [address] [place] [address] Health Maintenance Due Date Last Done Comments [...] Prophylaxis 04/06/2025 10/04/2024, 03/28/2024, 11/20/2021 Tobacco Screening 02/20/2026 02/20/2025 Dental X-Ray: Full Mouth 03/29/2027 03/28/2024 DTaP/Tdap/Td [...] PRESENTATION, DETAILED AND EXTENSIVE TREATMENT PLANNING Routine 02/20/2025 11:30 AM EDT 7 MAXILLARY PARTIAL DENTURE - RESIN BASE (INCLUDING, RETENTIVE/CLASPING MATERIALS, RESTS, AND TEETH) Routine 02/20/2025 11:30 AM EDT RE-EVAL - POST-OP OFFICE VISIT Routine 02/13/2025 [...] Most Recently Relevant to Health Maintenance Insurance [facility] MED[place] STAND ADULT
--- OUTSIDE RECORDS SUMMARY | 2025-03-02 13:09 | XMS_ITS | Patient Health Record ---
Author Organization [employer] [facility] Address [address] [place] [phone] Care Team Providers Care Shipping Support Clerk Name Role Phone Brian Augustin Primary Care Provider Allergies Allergen (clinical drug ingredient) Drug/Non Drug Allergy documented on EMR Reaction Allergy Type Onset Date Status codeine Codeine Sulfate dizziness Drug Allergy A ctive sertraline Zoloft Unknown Drug Allergy Active Reason For Referral No Information Medications Medication SIG (Take, Route, Frequency, Duration) Notes Start Date End Date Status KlonoPIN 0.5 MG Tablet 1 tablet Orally t id prn anxiety 02/24/2016 Active Effexor XR 75 MG Capsule Extended Release 24 Hour 1 capsule with food Orally Once a day 04/23/2016 Active Lisinopril 10 MG Tablet 1 tablet Orally Once a day Active Omeprazole 20 MG Capsule Delayed Release 1 Orally 30 min before bed, qd; Duration: 30 day(s) 01/28/2016 Active traZODone HCl 50 MG Tablet 0.5 tablet Orally qhs. may repeat in 30min prn once.; Duration: 30 day(s) 07/10/2014 Not-Taking Immunizations Vaccine Route Administration Date Status Comme nts Pneumococcal / State supplied Unknown 10/10/2011 Admini stered Given at [facility] Tetanus (adult) Purchased Unknown 03/16/2014 Administer ed Social History Social History Miscellaneous: Social Info Question Answer Notes Children: How many? 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 Problems Problem Type SNOMED Code ICD Code Onset Dates Problem Status W/U Status Risk Notes Problem Rectal prolapse (29535101) Rectal prolapse (K62.3) Active confirmed Problem Anxiety (18091509) Anxiety (F41.9) Active confirmed Problem Essential hypertension (61852009) HTN, goal below 140/90 (I10) Active confirmed Problem Impaired glucose tolerance (0599437) Impaired glucose tolerance (R73.02) Active confirmed Problem Polycythemia (905099840) Polycythemia (D75.1) Active confirmed Problem Depression (817595537) Depression (F32.9) Active confirmed Problem Hypertension (10592880) HTN (I10) Active confirmed Problem Malignant tumor of urinary bladder (963562071) Malignant neoplasm of urinary bladder, unspecified site (C67.9) Active confirmed Plan Of Treatment No Information Insurance Providers Payer Name Payer Address Payer Phone Subscriber Number Group Number Insured Name Patient Relationship to Insured Coverage Start Date Coverage End Date Medicare Part B [address] [facility] [place]AS [phone] [id number] June Read Self - patient is the insured 4 [facility] [address] [place] [phone] [id number] June Read Self - patient is the insured Medical (General) History Medical History History ICD Code Last CPE 07/22/2011- pt advis ed to sched appt 08/29/15, 11/12/15, 11/15/15,12/13/2016 HTN Depression Anxiety Alcohol Abuse PTSD Asthma HLP Bladder Ca, dx and resection 2016 Surgical History Surgery Date(Month/Year) rectal prolapse repair
== END 2025-03-02 11:17 | disposition home or self-care (01) ==
LOC: HO.MRI 11:16
PROVIDERS: PCP Internal Medicine; Visit Provider Nurse Practitioner Family
DX: H93.13 Tinnitus, bilateral (principal); R29.818 Other symptoms and signs involving the nervous system; R42 Dizziness and giddiness; I10 Essential (primary) hypertension; E78.00 Pure hypercholesterolemia, unspecified; F10.10 Alcohol abuse, uncomplicated
CPT/HCPCS: 70553; A9585